=== PATIENT | male | born 1935 | race Caucasian/White ===

== ENCOUNTER 2018-05-17 18:59 | Outpatient (REF) | payer MEDICARE, MEDICAID, SELFPAY | END 2018-05-17 19:19 | LOC: LBN 18:59 | PROVIDERS: PCP Family Medicine; Visit Provider Family Medicine | DX: J11.1 Influenza due to unidentified influenza virus with other respiratory manifestations (principal) | CPT/HCPCS: 87449 ==

== ENCOUNTER 2018-07-24 17:46 | Outpatient (REF) | payer MEDICARE, MEDICAID, SELFPAY ==
--- NOTE | 2018-07-24 15:45 | SKI_PTH ---
PATIENT: Merary Ram LOC: [facility] U#:[id number] AGE/SX: 82/M ROOM: RE07/24/[address]: Edd Adrian MD : 1935 BED: DIS: 07/24/2018 SPEC #: [id number] RECD: 07/25/18 13:03 STATUS: NAIDA REStephen #: [id number] MALIK: 07/24/18 15:[address]: Edd Adrian DEPT: Surgical Specimen RECD BY: Sendy Brooks Tissues: 1 - SKIN BIOPSY(SHAVE/PUNCH) Procedures: SKIN LEVEL 4 Comments: [id number]
== END 2018-07-24 18:06 ==
LOC: LBN 17:46
PROVIDERS: PCP Family Medicine; Visit Provider Family Medicine
DX: D23.72 Other benign neoplasm of skin of left lower limb, including hip (principal)
CPT/HCPCS: 88305

== ENCOUNTER 2018-08-07 20:52 | Outpatient (REF) | payer MEDICARE, MEDICAID, SELFPAY ==
--- NOTE | 2018-08-07 15:45 | SKI_PTH ---
PATIENT: Merary Ram LOC: [facility] U#:[id number] AGE/SX: 82/M ROOM: RE08/07/[address]: Edd Adrian MD : 1935 BED: DIS: 08/07/2018 SPEC #: [id number] RECD: 08/08/18 12:22 STATUS: NAIDA REStephen #: [id number] MALIK: 08/07/18 15:[address]: Edd Adrian DEPT: Surgical Specimen RECD BY: Sendy Brooks Tissues: 1 - SKIN BIOPSY(SHAVE/PUNCH) Procedures: SKIN LEVEL 4 Comments: [id number]
== END 2018-08-07 21:12 ==
LOC: LBN 20:52
PROVIDERS: PCP Family Medicine; Visit Provider Family Medicine
DX: B07.9 Viral wart, unspecified (principal)
CPT/HCPCS: 88305

== ENCOUNTER → 2018-10-18 12:22 | Outpatient (BNVA) | payer MEDICARE, MEDICAID, SELFPAY | PROVIDERS: PCP Family Medicine; Visit Provider Urology | DX: N39.0 Urinary tract infection, site not specified (principal); R31.0 Gross hematuria; I10 Essential (primary) hypertension; Z79.01 Long term (current) use of anticoagulants | CPT/HCPCS: 81003; 99213 ==

== ENCOUNTER 2018-10-18 14:44 | Outpatient (REF) | payer MEDICARE, MEDICAID, SELFPAY | END 2018-10-18 15:04 | LOC: LBN 14:44 | PROVIDERS: PCP Family Medicine; Visit Provider Urology | DX: N39.0 Urinary tract infection, site not specified (principal) | CPT/HCPCS: 87086 ==

== ENCOUNTER 2018-10-28 01:34 | Outpatient (CLI) | payer MEDICARE, MEDICAID, SELFPAY ==
--- NOTE | 2018-10-28 08:27 | DI.CT_ITS ---
SYMPTOM/DIAGNOSIS: HX STONES (BLADDER), GROSS HEMATURIA R31.[address]: Routine examination was performed. Comparison 09/08/15 Lack of IV contrast does limit evaluation of the abdominal and pelvic organs. There is some patient motion artifact present. The visualized lung bases are clear. The unenhanced visualized portions of the liver, spleen, pancreas, gallbladder, bile ducts and adrenal glands are unremarkable. No nephrolithiasis or ureterolithiasis is present. No hydronephrosis is present. There is a solitary 1.5 cm stone in the urinary bladder. Note is made of a cyst on the superior pole of the left kidney. This was present on prior examinations and has been identified and can be seen on the ultrasound of the abdomen from 12/29/16. The prostate gland measures 5 x 4.0 x 4 cm. There is atherosclerosis of the abdominal aorta but no aneurysmal dilatation seen. No significant abdominal or pelvic adenopathy, ascites or pneumoperitoneum is present. The bowel shows no evidence of obstruction or inflammation. No findings to suggest an acute appendicitis are present. Degenerative changes are seen in the spine. IMPRESSION: 1. No evidence of nephrolithiasis or hydronephrosis. 2. 1.5 cm urinary bladder stone.
== END 2018-10-28 01:54 ==
PROVIDERS: PCP Family Medicine; Visit Provider Urology
DX: R31.0 Gross hematuria (principal); N21.0 Calculus in bladder; Z79.01 Long term (current) use of anticoagulants; I10 Essential (primary) hypertension
CPT/HCPCS: 99213; 74176

== ENCOUNTER 2018-11-11 11:10 | Inpatient (IN) | payer MEDICARE, MEDICAID, SELFPAY ==
[2018-11-11] VITALS (14 sets, daily range): BP systolic 119–178; BP diastolic 65–112; PULSE 56–80; RESP 10–19; TEMP 35.8–37.1; O2SAT 93–99
[2018-11-11] MEDS: Lactated Ringers 1,000 ML 80 ML IV ×3 (11:51→23:12)
--- NOTE | 2018-11-11 13:35 | W.PM.HP.N ---
Date of service: 11/11/18 Time of Service: 13:36 Assessment and Plan (1) Bladder stone: Current visit: No Status: Acute We will plan on cystoscopy with holmium laser of his bladder stone. We will then vaporized the prostate to relieve any bladder outlet obstruction and hopefully prevent future stones. He will be staying in the hospital overnight with bladder irrigation after this procedure. History of Present Illness Chief Complaint: Bladder stone Narrative: This is an 83-year-old gentleman who has a history of bladder stones. Recently, he has been having gross hematuria with interrupted urinary stream. We were concerned that he may have a recurrent bladder stone, so we arranged for a CT scan His CT confirms another large bladder stone. He presents for holmium laser lithotripsy of the stone. We will do vaporization of the prostate to relieve any bladder outlet obstruction and try to prevent future stones. He is on Eliquis for atrial fibrillation. The Eliquis has been stopped in the perioperative period. Review of Systems Review of Systems No fevers or chills No vision change or dysphasia No diabetes or thyroid dysfunction No shortness of breath, cough or hemoptysis No chest pain. Hx atrial fibrillation No nausea, vomiting, hepatitis, ulcers, jaundice, diarrhea or constipation No seizures, strokes or peripheral neuropathy No anemia No gout PFSH Medical History Atrial fibrillation (Chronic) BPH (benign prostatic hyperplasia) (Chronic) HTN (hypertension) (Chronic) Surgical History S/P excision of lipoma (Acute) Hx of appendectomy (Chronic) Hx of cystoscopy (Chronic) Social History Smoking/Tobacco Use Status: Former Tobacco Use Drug use: Never Do you feel safe in your relationship?: Yes Meds Home Medications Medication Instructions Recorded Confirmed Type cholecalciferol (vitamin D3) 1,000 unit PO DAILY 03/22/15 11/11/18 History [Vitamin D3] vitamin E (dl, acetate) 1 cap PO DAILY 09/08/15 11/11/18 History apixaban [Eliquis] 5 mg PO BID 90 Days #180 tab-cap 12/04/17 11/11/18 Rx atorvastatin 40 mg PO HS #90 tab-cap 12/04/17 11/11/18 Rx benazepril-hydrochlorothiazide 2 tab-cap PO DAILY #180 tab-cap 12/04/17 11/11/18 Rx gabapentin [Neurontin] 2 cap PO BID #360 t 12/04/17 11/11/18 Rx potassium chloride 20 meq PO BID #180 tab-cap 12/04/17 11/11/18 Rx tamsulosin 0.8 mg PO HS #180 tab-cap 12/04/17 11/11/18 Rx metoprolol tartrate 25 mg tablet 25 mg PO DAILY #90 tab 05/07/18 11/11/18 Rx triamcinolone acetonide 0.1 % 1 applic TP TID PRN #80 gm 07/08/18 11/07/18 Rx topical cream tramadol 50 mg tablet 50 mg PO Q6H PRN #20 tab MDD 4 11/01/18 11/07/18 Rx Allergies Allergy/AdvReac Type Severity Reaction Status Date / Time orange juice Allergy Intermediate RASH; Unverified 11/11/18 11:21 ITCHING ibuprofen Allergy Unknown ITCHING Unverified 11/11/18 11:21 Exam Narrative Exam Narrative: He is in no current distress. He is cooperative. He does not appear septic or toxic. His vital signs are documented elsewhere in the chart. His neck is supple with no masses His lungs are clear Cardiac exam shows an irregular rate and rhythm His abdomen is soft with no guarding or rebound tenderness. The kidneys liver and spleen are not enlarged He is awake, alert and oriented Results Last Vital Signs Temp 37.1 C 11/11/18 11:33 Pulse 56 L 11/11/18 11:33 Resp 16 11/11/18 11:33 BP 119/65 11/11/18 11:33 Pulse Ox 93 L 11/11/18 11:33
[2018-11-11] MEDS: ceFAZolin 2 GM/50 ML BAG IVPB (14:20)
[2018-11-11] MEDS: Lidocaine 2% Jelly 11 ML SYR (14:36)
[2018-11-11] MEDS: fentaNYL 100 MCG/2 ML VIAL IVP ×2 (16:05→16:20)
--- NOTE | 2018-11-11 16:24 | ROE_ITS ---
DATE OF PROCEDURE: November 11, 2018 PREOPERATIVE DIAGNOSIS: Bladder stone. POSTOPERATIVE DIAGNOSIS: Same. PROCEDURE: Cystoscopy; holmium laser of bladder stone with stone extraction. Transurethral resectio n and vaporization of prostate. SURGEON: Manish Houser M.D. ANESTHESIA: General. COMPLICATIONS: None. ESTIMATED BLOOD LOSS: 100 cc's SPECIMEN: Bladder stone. HISTORY: This is an 83-year-old gentleman who has a history of recurrent bladder stones. He has bee n having gross hematuria with some discomfort with voiding. His urine culture is negative. On CT ur ogram he was identified as having a large stone at the base of his bladder. It is felt the bladder o utlet obstruction is contributing to his recurrent stones. He presents now for a stone procedure, as well as a vaporization of the prostate. OPERATIVE REPORT: The patient was brought to the Operating Room on 11/11/18. After successful induct ion of general anesthesia, he was placed in the dorsal lithotomy position. His genitalia was prepped and draped sterilely. A 22 Polish rigid cystoscope was passed through the urethra into the bladder. The urethra was inspec gurjit with the 30-degree lens. The pendulous, bulbous and membranous urethras all appeared normal with no strictures. The prostatic urethra showed some lateral lobe enlargement and a very small median lobe. The bladder neck was ent ered and the bladder mucosa was inspected. A large bladder stone was seen at the base of the bladder . The stone was then treated with a 1000 micron holmium laser fiber. We used a power setting of 800 an d a rate of 8. The bladder stone fragmented quite nicely. We were then able to irrigate out multipl e stone fragments. Once the stone had been removed, its pieces were sent to Pathology for chemical analysis. We then re moved the cystoscope and passed a 24 Polish resectoscope sheath through the urethra into the bladder. We resected the prostate from the bladder neck out to the verumontanum. We then cauterized the res ection site for hemostasis, as the patient is on long-term Eliquis. At the completion of the procedure the prostatic fossa appeared open at rest. The bladder was then filled with irrigant. The resectoscope was removed. A 24 Polish hematuria cath eter was then passed through the urethra into the bladder. The catheter balloon was inflated with 10 cc's of sterile water. Continuous bladder irrigation with saline was then begun. The patient tolerated this procedure well with no complications. cc: Edd Adrian M.D.
[2018-11-11] MEDS: HYDROmorphone 2 MG/ML VIAL IVP (16:33)
[2018-11-11] MEDS: Oxybutynin 5 MG TAB PO (17:06)
[2018-11-11] MEDS: Ketorolac 15 MG/ML VIAL IVP (17:14)
[2018-11-11] MEDS: Labetalol 100 MG/20 ML VIAL 10 MG IVP ×3 (17:27→17:56)
[2018-11-11] MEDS: Phenazopyridine 100 MG TAB PO (19:09)
[2018-11-11] MEDS: Gabapentin 300 MG CAP 600 MG PO (19:09)
[2018-11-11] MEDS: Atorvastatin 40 MG TAB PO (19:09)
[2018-11-11] MEDS: Potassium Chloride 20 MEQ TABCR PO (19:10)
[2018-11-11] MEDS: Docusate Sodium 100 MG CAP PO (19:10)
[2018-11-11] MEDS: Normal Saline Flush 10 ML SYR IV (20:17)
[2018-11-11] MEDS: Tamsulosin 0.4 MG CAPCR 0.8 MG PO (21:35)
--- NOTE | 2018-11-11 22:37 | NUR.NOTE ---
Patient was admitted to the med-surg unit this evening from PACU after having Cystosopy, holiricum laser of bladder stone and stone extraction. He is conscious, alert, rational and oriented x 3 and denies any pain. He is on continuous bladder irrigation, with intermittently pinkish fluid secretions noted with episodes of reddish coloration. Head to toe assessment done and charted
[2018-11-12 00:02] VITALS: BP 179/96; PULSE 87; RESP 20; TEMP 36.1; O2SAT 96
[2018-11-12 05:32] LABS: HCT 35.5 % (40.0-50.0); HGB 12.1 g/dL (13.5-17.5); Mean Corp. HGB Concentration 34.1 g/dL (32.0-36.0); Mean Corpuscular Hemoglobin 29.6 pg (27.0-33.0); Mean Corpuscular Volume 86.8 fL (80-95); Mean Platelet Volume 9.4 fL (8.0-11.0); Platelet Count 168 x1000/uL (130-400); RBC 4.09 m/cumm (4.50-6.00); White Blood Cell Count 7.04 k/cumm (4.4-10.8)
[2018-11-12 05:47] LABS: Anion Gap 9.3 mmol/L (3-11); BUN 19 mg/dL (7-18); CO2 25.7 mmol/L (21.0-32.0); CREATININE 0.85 mg/dL (0.70-1.30); Chloride 104 mmol/L (98-107); Glucose 134 mg/dL (70-100); Potassium 3.8 mmol/L (3.5-5.1); Sodium 139 mmol/L (136-145)
--- NOTE | 2018-11-12 07:02 | W.PM.PROGNOT ---
Date of Service Date of service: 11/12/18 Time of Service: 07:02 Assessment and Plan (1) Bladder stone: Current visit: No Status: Acute I will stop his CBI this AM. As long as his urine remains clear, we should be able to discharge him later today. We will decide if we will send him home with or without his catheter later this morning. Subjective Interval history since last seen: He is more comfortable than when I saw him in the recovery room, but he still has some catheter discomfort. He has no clot retention. He is tolerating PO fluids. Exam Narrative Exam Narrative: He is resting comfortably this morning (I woke him up) His vital signs are documented elsewhere. His urine is clear His labs are reviewed (renal function and Hgb stable) Objective Objective Clinical Data: Abnormal lab results 11/12/18 11/12/18 Range/Units 05:25 05:25 RBC 4.09 L (4.50-6.00) m/cumm Hgb 12.1 L (13.5-17.5) g/dL Hct 35.5 L (40.0-50.0) % BUN 19 H (7-18) mg/dL Glucose 134 H (70-100) mg/dL Vital Signs Temperature 36.1 C L 11/12/18 00:02 Temperature Source Tympanic 11/12/18 00:02 Pulse 87 11/12/18 00:02 Pulse Rhythm Irregular 11/12/18 00:02 Respiratory Rate 20 11/12/18 00:02 Respiratory Effort 11/12/18 00:02 Respiratory Depth Normal 11/12/18 00:02 Respiratory Pattern Normal 11/12/18 00:02 Blood Pressure 179/96 H 11/12/18 00:02 Pulse Oximetry 96 11/12/18 00:02 Respiratory End-tidal CO2 28 11/11/18 16:45 Oxygen Delivery Method Room Air 11/12/18 00:02 Oxygen Flow Rate 0 11/12/18 00:02 Pain Level 0 11/12/18 00:02 Intake & Output 11/11/18 11/11/18 11/12/18 11:59 23:59 11:59 Intake Total 1839.333 / 1839.333 100 / 100 Balance 1839.333 / 1839.333 100 / 100 Weight 82.3 kg Intake: IV 1839.333 / 1839.333 Oral 100 / 100 Other: Urine Color [place] Urine Appearance Hematuria Hematuria Comment [address] CBI WORKING. Emesis Description None Laboratory Results WBC 7.04 k/cumm (4.4-10.8) 11/12/18 05:25 RBC 4.09 m/cumm (4.50-6.00) L 11/12/18 05:25 Hgb 12.1 g/dL (13.5-17.5) L 11/12/18 05:25 Hct 35.5 % (40.0-50.0) L 11/12/18 05:25 MCV 86.8 fL (80-95) 11/12/18 05:25 MCH 29.6 pg (27.0-33.0) 11/12/18 05:25 MCHC 34.1 g/dL (32.0-36.0) 11/12/18 05:25 RDW 13.0 % (11.8-14.1) 11/12/18 05:25 Plt Count 168 x1000/uL (130-400) 11/12/18 05:25 MPV 9.4 fL (8.0-11.0) 11/12/18 05:25 Sodium 139 mmol/L (136-145) 11/12/18 05:25 Potassium 3.8 mmol/L (3.5-5.1) 11/12/18 05:25 Chloride 104 mmol/L (98-107) 11/12/18 05:25 Carbon Dioxide 25.7 mmol/L (21.0-32.0) 11/12/18 05:25 Anion Gap 9.3 mmol/L (3-11) 11/12/18 05:25 BUN 19 mg/dL (7-18) H 11/12/18 05:25 Creatinine 0.85 mg/dL (0.70-1.30) 11/12/18 05:25 Estimated GFR/1.73 m2 >= 60.00 (mL/min/1.73m2) 11/12/18 05:25 Glucose 134 mg/dL (70-100) H 11/12/18 05:25 Calcium 9.0 mg/dL (8.5-10.1) 11/12/18 05:25
[2018-11-12 07:10] VITALS: BP 118/66; PULSE 63; RESP 16; TEMP 36.8; O2SAT 97
--- NOTE | 2018-11-12 08:08 | PDOC.CMIN ---
- If Service Date Differs Date of service: 11/12/18 Time of Service: 08:08 Care Management Initial Assess REASON FOR HOSPITALIZATION:: Bladder stone PAST MEDICAL HISTORY/PAST SURGICAL HISTORY:: Medical History. Atrial fibrillation (Chronic). BPH (benign prostatic hyperplasia) (Chronic). HTN (hypertension) (Chronic). Surgical History. S/P excision of lipoma (Acute). Hx of appendectomy (Chronic). Hx of cystoscopy (Chronic) ADVANCE DIRECTIVES:: None on file at [facility] CODE STATUS:: Full Code INSURANCE COVERAGE / FINANCIAL ISSUES:: Medicare. Medicaid [place] [facility] PRIMARY CARE PHYSICIAN:: Edd Adrian MD POTENTIAL DISCHARGE NEEDS:: follow up with PCP, urologist and discharge plan of care PATIENT/FAMILY EDUCATION NEEDS:: Discharge plan, limitations, follow up plan, Ask Me Three. ANTICIPATED BARRIERS TO DISCHARGE:: none identified
--- NOTE | 2018-11-12 08:25 | DSE_ITS ---
Date of service: 11/12/18 Time of Service: 08:25 DS: Diagnosis Discharge Diagnosis (1) Bladder stone: Status: Acute Discharge Plan Disposition Patient Disposition: HOME Condition: Stable Discharge Details Reason For Visit: BLADDER STONE Admit Date/Time: 11/11/18 11:10 Admit Provider: Manish Houser Attending Provider: Manish Houser Primary Care Provider: Edd Adrian [facility] Course Hospital Course: The patient was taken to the operating room on 11/11/2018. He underwent a cystoscopy which demonstrated a large bladder stone. We treated the stone with a holmium laser and evacuated many stone fragments. The stone fragments were sent to the lab for chemical analysis. These results are not yet available. Because we felt the bladder outlet obstruction was a component to his stone formation, we also vaporized his prostate using the bipolar cautery. We then placed an irrigating catheter and hospitalized him overnight with bladder irrigation. By postoperative day #1, his bladder irrigation remained clear. We discontinued the irrigation. His hemoglobin and creatinine both remained stable. He will be discharged to home on postoperative day #1. Home Meds and New Rx's Prescriptions: New ciprofloxacin HCl 250 mg tablet 250 mg PO BID Qty: 6 RF: 0 No Action triamcinolone acetonide 0.1 % cream 1 applic TP TID PRN Qty: 80 RF: 2 cholecalciferol (vitamin D3) [Vitamin D3] 1,000 UNIT capsule 1,000 unit PO DAILY RF: 0 atorvastatin 40 MG tablet 40 mg PO HS Qty: 90 RF: 4 potassium chloride 20 MEQ tablet,ER particles/crystals 20 meq PO BID Qty: 180 RF: 3 tamsulosin 0.4 MG capsule 0.8 mg PO HS Qty: 180 RF: 4 gabapentin [Neurontin] 300 MG capsule 2 cap PO BID Qty: 360 RF: 4 benazepril-hydrochlorothiazide 1 EACH tablet 2 tab-cap PO DAILY Qty: 180 RF: 3 Eliquis 5 MG tablet 5 mg PO BID 90 Days Qty: 180 RF: 3 metoprolol tartrate 25 mg tablet 25 mg PO DAILY Qty: 90 RF: 3 tramadol 50 mg tablet 50 mg PO Q6H MDD 4 PRN (Reason: pain) Qty: 20 RF: 0 vitamin E (dl, acetate) 400 UNIT capsule 1 cap PO DAILY RF: 0 Discharge Instructions Additional Instructions: Okay to shower Follow-up with my office or Sunday for voiding trial Catheter to leg bag Hold Eliquis until followup visit Pt already has Ultram at home to use for pain control - only script needed is for antibiotic (sent electronically) Activity:: Activity as Tolerated Equipment/Supplies:: g[place]ord to legbag Diet:: As Tolerated Discharge Orders Discharge Orders: Discharge Order (Routine); Ordered 11/12/18 Ordered By: Manish Houser Exam Narrative Exam Narrative: At discharge, he looks well His vital signs are documented elsewhere His abdomen is soft with no mass His urine is clear with no clots He is awake and alert DS: Data Vitals/I&O Vitals and I&O: Vital Signs Temperature 36.8 C 11/12/18 07:10 Temperature Source Tympanic 11/12/18 07:10 Pulse 63 11/12/18 07:10 Pulse Rhythm Irregular 11/12/18 00:02 Respiratory Rate 16 11/12/18 07:10 Respiratory Effort 11/12/18 00:02 Respiratory Depth Normal 11/12/18 00:02 Respiratory Pattern Normal 11/12/18 00:02 Blood Pressure 118/66 11/12/18 07:10 Pulse Oximetry 97 11/12/18 07:10 Respiratory End-tidal CO2 28 11/11/18 16:45 Oxygen Delivery Method Room Air 11/12/18 07:10 Oxygen Flow Rate 0 11/12/18 07:10 Pain Level 0 11/12/18 07:10 Intake & Output 11/11/18 11/11/18 11/12/18 11:59 23:59 11:59 Intake Total 1839.333 / 1839.333 100 / 100 Balance 1839.333 / 1839.333 100 / 100 Weight 82.3 kg Intake: IV 183.333 / 183.333 Oral 100 / 100 Other: Urine Color [place] Urine Appearance Hematuria Hematuria Comment CBI, TRUE U/O NOT CALCULATED. NUMEROUS BAGS FLUID RUN THRU. IN AM URINE WAS CLEAR YELLOW WITH ONE TEENY CLOT. Emesis Description None Voiding Methods Indwelling Catheter Labs on day of discharge: Labs from last 24 hours 11/12/18 11/12/18 11/11/18 05:25 05:25 14:53 WBC 7.04 RBC 4.09 L Hgb 12.1 L Hct 35.5 L MCV 86.8 MCH 29.6 MCHC 34.1 RDW 13.0 Plt Count 168 MPV 9.4 Sodium 139 Potassium 3.8 Chloride 104 Carbon Dioxide 25.7 Anion Gap 9.3 BUN 19 H Creatinine 0.85 Estimated GFR/1.73 m2 >= 60.00 Glucose 134 H Calcium 9.0 Stone Analysis Pending Stone Source Pending Stone Constituent 1 Pending Stone Constituent 2 Pending Stone Constituent 3 Pending Major Stone Nidus Pending Minor Stone Nidus Pending Major Stone Shell Pending Minor Stone Shell Pending Stone Comment Pending PFSH Medical History Atrial fibrillation (Chronic) BPH (benign prostatic hyperplasia) (Chronic) HTN (hypertension) (Chronic) Surgical History S/P excision of lipoma (Acute) Hx of appendectomy (Chronic) Hx of cystoscopy (Chronic) Social History Smoking/Tobacco Use Status: Former Tobacco Use Drug use: Never Do you feel safe in your relationship?: Yes
[2018-11-12] MEDS: Gabapentin 300 MG CAP 600 MG PO (08:46)
[2018-11-12] MEDS: Cholecalciferol (Vitamin D3) 1,000 UNIT TAB 1000 UNITS PO (08:47)
[2018-11-12] MEDS: hydroCHLOROthiazide 25 MG TAB PO (08:47)
[2018-11-12] MEDS: Benazepril 10 MG TAB 20 MG PO (08:47)
[2018-11-12] MEDS: Vitamin E 400 UNITS CAP PO (08:47)
[2018-11-12] MEDS: Docusate Sodium 100 MG CAP PO (08:47)
[2018-11-12] MEDS: Potassium Chloride 20 MEQ TABCR PO (08:48)
== END 2018-11-12 10:18 | disposition home or self-care (01) | DRG 666 ==
LOC: PDS 11:17 → MS 15:50
PROVIDERS: Admitting Provider Urology; PCP Family Medicine; Visit Provider Urology
PROC: 0TCB8ZZ Extirpation of Matter from Bladder, Via Natural or Artificial Opening Endoscopic (ICD-10-PCS; CPT 52318; principal; 2018-11-11 12:30)
PROC: 0VT08ZZ Resection of Prostate, Via Natural or Artificial Opening Endoscopic (ICD-10-PCS; CPT 52601; 2018-11-11 12:30)
DX: N21.0 Calculus in bladder (principal); N13.8 Other obstructive and reflux uropathy; N40.1 Benign prostatic hyperplasia with lower urinary tract symptoms; I48.91 Unspecified atrial fibrillation; Z79.01 Long term (current) use of anticoagulants; I10 Essential (primary) hypertension
CPT/HCPCS: 52318; 52601; 36415; 80048; 85027; NC; 82365; J0690; J1100; J1885; J2405; J3010

== ENCOUNTER → 2018-11-15 08:30 | Outpatient (BNVA) | payer MEDICARE, MEDICAID, SELFPAY | PROVIDERS: PCP Family Medicine; Visit Provider Urology | DX: Z48.816 Encounter for surgical aftercare following surgery on the genitourinary system (principal); R30.9 Painful micturition, unspecified; N21.0 Calculus in bladder; Z46.6 Encounter for fitting and adjustment of urinary device; I10 Essential (primary) hypertension | CPT/HCPCS: 51798; 96372; J1885 ==

== ENCOUNTER → 2018-11-19 10:03 | Outpatient (BNVA) | payer MEDICARE, MEDICAID, SELFPAY | PROVIDERS: PCP Family Medicine; Visit Provider Urology | DX: Z48.816 Encounter for surgical aftercare following surgery on the genitourinary system (principal); Z87.442 Personal history of urinary calculi; I10 Essential (primary) hypertension ==

== ENCOUNTER 2018-12-19 11:00 | Outpatient (CLI) | payer MEDICARE, MEDICAID, SELFPAY | END 2018-12-19 11:20 | PROVIDERS: PCP Family Medicine; Visit Provider Urology | DX: N21.0 Calculus in bladder (principal); N39.0 Urinary tract infection, site not specified | CPT/HCPCS: 87086 ==

== ENCOUNTER → 2018-12-31 09:52 | Outpatient (BNVA) | payer MEDICARE, MEDICAID, SELFPAY | PROVIDERS: PCP Family Medicine; Visit Provider Urology | DX: R30.0 Dysuria (principal); R31.29 Other microscopic hematuria; R10.2 Pelvic and perineal pain; I10 Essential (primary) hypertension; Z87.442 Personal history of urinary calculi | CPT/HCPCS: 51798; 81003; 99212; 99213 ==

== ENCOUNTER → 2019-01-07 11:57 | Outpatient (BNVA) | payer MEDICARE, MEDICAID, SELFPAY | PROVIDERS: PCP Family Medicine; Visit Provider Urology | DX: R30.0 Dysuria (principal); Z87.442 Personal history of urinary calculi; Z48.816 Encounter for surgical aftercare following surgery on the genitourinary system | CPT/HCPCS: 51798; 99213 ==

== ENCOUNTER → 2019-01-21 10:51 | Outpatient (BNVA) | payer MEDICARE, MEDICAID, SELFPAY | PROVIDERS: PCP Family Medicine; Visit Provider Urology | DX: N21.0 Calculus in bladder (principal); R30.0 Dysuria; Z48.816 Encounter for surgical aftercare following surgery on the genitourinary system; I10 Essential (primary) hypertension | CPT/HCPCS: 99213 ==

== ENCOUNTER 2019-01-24 02:47 | Outpatient (CLI) | payer MEDICARE, MEDICAID, SELFPAY ==
--- NOTE | 2019-01-24 08:18 | DI.CT_ITS ---
SYMPTOM/DIAGNOSIS: R/O RECURRENT STONE, BLADDER STONE N21.[address]: 01/24 CT examination of the abdomen and pelvis was performed without contrast administration. Images obtained through the lung bases were unremarkable. Visualized portions of liver, spleen and pancreas appear normal. Gallbladder and bile ducts are CT normal. Abdominal aorta is of normal diameter. Small bilateral fat containing inguinal hernias and small fat containing umbilical hernia noted. No significant abdominal or pelvic adenopathy. Appendix not specifically visualized but there is no evidence of appendicitis or diverticulitis. Adrenals appear normal bilaterally. There is a 42 mm in diameter low attenuation upper pole left renal mass consistent with cyst. There is a small calcification of the right kidney probably vascular, otherwise the kidneys are unremarkable in appearance. No ureteral calcification seen. There is question of a TURP defect of the urinary bladder, this is hard to visualize on this noncontrast study. A previously noted bladder calculus seen on CT of 10/28/18 is no longer visible. There is question of a very tiny calcification which may lie either in the TURP defect or in the prostate. No evidence of obstruction. Additional prostate calcifications are noted inferiorly. CONCLUSION: 1. Previously noted large bladder calculus no longer visible. 2. Tiny 1-2 mm calculus which may lie in TURP defect of the urinary bladder vs intraprostatic. No evidence of obstruction. 3. No additional urinary tract calcifications.
== END 2019-01-24 03:07 ==
PROVIDERS: PCP Family Medicine; Visit Provider Urology
DX: N21.0 Calculus in bladder (principal); R39.9 Unspecified symptoms and signs involving the genitourinary system; N42.89 Other specified disorders of prostate; I10 Essential (primary) hypertension; R30.0 Dysuria
CPT/HCPCS: 99213; 74176; 87086

== ENCOUNTER 2019-02-24 08:11 | Outpatient (CLI) | payer MEDICARE, MEDICAID, SELFPAY ==
[2019-02-24 13:33] LABS: Anion Gap 7.2 mmol/L (3-11); BUN 9 mg/dL (7-18); CO2 30.8 mmol/L (21.0-32.0); CREATININE 0.76 mg/dL (0.70-1.30); Calcium 8.6 mg/dL (8.5-10.1); Chloride 102 mmol/L (98-107); Glucose 94 mg/dL (70-100); Potassium 3.4 mmol/L (3.5-5.1); Sodium 140 mmol/L (136-145)
== END 2019-02-24 08:31 ==
PROVIDERS: PCP Family Medicine; Visit Provider Family Medicine
DX: I10 Essential (primary) hypertension (principal)
CPT/HCPCS: 36415; 80048

== ENCOUNTER 2020-01-06 03:48 | Outpatient (CLI) | payer MEDICARE, MEDICAID, SELFPAY ==
[2020-01-06 12:29] LABS: Abs Immature Grans 0.02 10^3/uL (0.0-0.06); Absolute Basophil Count 0.02 10^3/uL (0.0-0.2); Absolute Eosinophil Count 0.27 10^3/uL (0.0-0.7); Absolute Lymphocyte Count 1.48 10^3/uL (1.2-3.4); Absolute Monocyte Count 0.63 10^3/uL (0.1-0.8); Basophils % 0.3; Eosinophils % 4.3; HGB 13.2 g/dL (13.5-17.5); Immature Grans % 0.3; Lymphocytes % 23.4; MCH 28.9 pg (27.0-33.0); MCHC 32.2 % (32.0-36.0); MCV 89.9 fL (80-95); MPV 11.4 fL (8.0-11.0); Neutrophils % 61.7; Nucleated RBC 0 %; Platelet Count 188 10^3/uL (130-400); RBC 4.56 10^6/uL (4.36-5.78); RDW 13.4 % (11.8-14.1); RDW-SD 44.4 fL; WBC 6.32 10^3/uL (4.4-10.8)
[2020-01-06 12:38] LABS: Bilirubin Negative (Negative); Blood Trace-intact (Negative); Clarity Clear (Clear); Glucose Negative (Negative); Ketones Negative (Negative); Leukocyte Esterase Negative (Negative); Nitrite Negative (Negative); Specific Gravity 1.025 (1.005-1.025); Urobilinogen 0.2 EU/dL (Up TO 0.2); pH 7.5 (5-8)
[2020-01-06 12:50] LABS: ALT 43 U/L (16-63); AST 20 U/L (15-37); Albumin 3.8 g/dL (3.4-5.0); Alkaline Phosphatase 74 U/L (46-116); Anion Gap 8.1 mmol/L (3-11); BUN 15 mg/dL (7-18); Bilirubin, Total 0.6 mg/dL (0.2-1.0); CO2 28.9 mmol/L (21.0-32.0); CREATININE 0.84 mg/dL (0.70-1.30); Calcium 8.7 mg/dL (8.5-10.1); Chloride 106 mmol/L (98-107); Glucose 111 mg/dL (74-106); Sodium 143 mmol/L (136-145); Total Protein 6.3 g/dL (6.4-8.2)
[2020-01-06 12:54] LABS: Bacteria Rare HPF (Negative); C & S Indicated? No; Casts Negative LPF (Negative); Crystals Negative HPF (Negative); Epithelial Cells Rare HPF (Negative); Mucus Trace (Negative); RBC 0-2 HPF (0-2); WBC 0-2 HPF (0-5)
== END 2020-01-06 04:08 ==
PROVIDERS: PCP Family Medicine; Visit Provider Family Medicine
DX: I10 Essential (primary) hypertension (principal); I48.20 Chronic atrial fibrillation, unspecified; R82.998 Other abnormal findings in urine
CPT/HCPCS: 36415; 80053; 81003; 81015; 84443; 85025

== ENCOUNTER 2020-02-19 18:06 | Outpatient (CLI) | payer MEDICARE, MEDICAID, SELFPAY ==
--- NOTE | 2020-02-19 13:45 | DI.RAD_ITS ---
EXAM: XR RIBS LT W PA LAT CHEST CLINICAL HISTORY: RIB INJURY, S29.9XXA. COMPARISON: CR CHEST 2 VIEWS PA,LAT from 11/03/2015 FINDINGS: LUNGS: Clear. No pneumothorax is seen. No infiltrate or effusion. HEART: Mildly enlarged. Mildly tortuous aorta. BONES: No displaced rib fracture is seen. No bony destructive lesion is seen. The spine is grossly i ntact and shows degenerative disc changes and mild scoliosis.. IMPRESSION: Unremarkable chest and left ribs.
== END 2020-02-19 18:26 ==
PROVIDERS: PCP Family Medicine; Visit Provider Family Medicine
DX: S29.8XXA Other specified injuries of thorax, initial encounter (principal); M47.819 Spondylosis without myelopathy or radiculopathy, site unspecified; M41.9 Scoliosis, unspecified
CPT/HCPCS: 71046; 71100

== ENCOUNTER 2020-02-24 21:33 | Outpatient (REF) | payer MEDICARE, MEDICAID, SELFPAY ==
[2020-02-24 22:01] LABS: Bilirubin Negative (Negative); Blood Negative (Negative); Clarity Clear (Clear); Glucose Negative (Negative); Ketones Negative (Negative); Leukocyte Esterase Negative (Negative); Nitrite Negative (Negative); Specific Gravity 1.025 (1.005-1.025); Urobilinogen 0.2 EU/dL (Up TO 0.2)
== END 2020-02-24 21:53 ==
LOC: LBN 21:33
PROVIDERS: PCP Family Medicine; Visit Provider Family Medicine
DX: R39.11 Hesitancy of micturition (principal)
CPT/HCPCS: 81003; 87086

== ENCOUNTER 2020-03-15 14:35 | Outpatient (CLI) | payer MEDICARE, MEDICAID, SELFPAY ==
[2020-03-17 19:51] LABS: Patient Race White; SARS-CoV-2 RNA Undetected (Undetected); SARS-CoV-2 Specimen Source Nasal
== END 2020-03-15 14:55 ==
PROVIDERS: PCP Family Medicine; Visit Provider Family Medicine
DX: Z20.828 Contact with and (suspected) exposure to other viral communicable diseases (principal)
CPT/HCPCS: U0003

== ENCOUNTER 2020-10-05 15:44 | Outpatient (CLI) | payer MEDICARE, MEDICAID, SELFPAY ==
--- NOTE | 2020-10-05 14:45 | DI.RAD_ITS ---
Exam(s) XR SHOULDER LT COMPLETE 2+V EXAM: XR SHOULDER LT COMPLETE 2+V CLINICAL HISTORY: L shoulder pain. TECHNIQUE: 2D digital imaging was performed. COMPARISON: No exams were available for comparison FINDINGS: BONES: No acute fracture is present. No bony destructive lesion is seen. JOINTS: No dislocation present. Mild spurring at the AC joint and glenoid. SOFT TISSUE: Normal. No tendon or joint space calcifications are visible. IMPRESSION: Mild degenerative changes. DATA REPOSITORY: RADIATION DOSE DELIVERED:
== END 2020-10-05 15:45 | disposition home or self-care (01) ==
LOC: DIORS 15:44
PROVIDERS: PCP Family Medicine; Referring Provider Physical Therapist; Visit Provider Student in an Organized Health Care Education/Training Program
DX: M12.812 Other specific arthropathies, not elsewhere classified, left shoulder (principal); M24.512 Contracture, left shoulder; M25.512 Pain in left shoulder
CPT/HCPCS: 20610; 99204; 99213; 73030; J1040

== ENCOUNTER 2021-02-08 07:25 | Outpatient (CLI) | payer MEDICARE, MEDICAID, SELFPAY ==
[2021-02-08 12:26] LABS: HCT 42.3 % (40.0-50.0); HGB 13.6 g/dL (13.5-17.5); MCH 29.8 pg (27.0-33.0); MCHC 32.2 % (32.0-36.0); MCV 92.6 fL (80-95); MPV 10.6 fL (8.0-11.0); Platelet Count 197 10^3/uL (130-400); RBC 4.57 10^6/uL (4.36-5.78); RDW 13.2 % (11.8-14.1); RDW-SD 44.8 fL; WBC 5.84 10^3/uL (4.4-10.8)
[2021-02-08 12:46] LABS: Iron 87 ug/dL (65-175); Total Iron Binding Capacity 270 ug/dL (250-450); Transferrin Sat 32 % (20-55)
[2021-02-08 13:32] LABS: Ferritin 99 ng/mL (26-388)
[2021-02-08 14:00] LABS: Hemoglobin A1C 6.1 % (<5.7)
== END 2021-02-08 07:26 | disposition home or self-care (01) ==
LOC: LOS 07:25
PROVIDERS: PCP Nurse Practitioner Family; Visit Provider Nurse Practitioner Family
DX: M25.512 Pain in left shoulder; R53.83 Other fatigue; I10 Essential (primary) hypertension; R31.9 Hematuria, unspecified
CPT/HCPCS: 36415; 85027; 82728; 83036; 83540; 83550

== ENCOUNTER 2021-10-05 03:30 | Outpatient (CLI) | payer MEDICARE, MEDICAID, SELFPAY ==
[2021-10-05 18:14] LABS: ALT 37 U/L (16-63); AST 25 U/L (15-37); Albumin 3.6 g/dL (3.4-5.0); Alkaline Phosphatase 77 U/L (46-116); BUN 15 mg/dL (7-18); Bilirubin, Total 0.7 mg/dL (0.2-1.0); CREATININE 0.8 mg/dL (0.70-1.30); Calcium 8.9 mg/dL (8.5-10.1); Chloride 101 mmol/L (98-107); Glucose 95 mg/dL (74-106); Potassium 3.3 mmol/L (3.5-5.1); Sodium 138 mmol/L (136-145); Total Protein 6.6 g/dL (6.4-8.2)
== END 2021-10-05 03:31 | disposition home or self-care (01) ==
LOC: LBO 03:30
PROVIDERS: PCP Nurse Practitioner Family; Visit Provider Nurse Practitioner Family
DX: I10 Essential (primary) hypertension (principal)
CPT/HCPCS: 36415; 80053

== ENCOUNTER 2021-11-14 03:55 | Outpatient (CLI) | payer MEDICARE, MEDICAID, SELFPAY ==
[2021-11-14] MEDS: Inhaler, Assist Device 1 EACH MC (16:11)
[2021-11-14] MEDS: Albuterol HFA 18 GM 200 PUFF INH IH (16:12)
--- NOTE | 2021-11-15 09:55 | W.PFT ---
Date of service: 11/14/21 Time of Service: 15:00 Pulmonary Function Test Result Requesting Provider Juwan Mark Indications: BARKLEY Interpretation Spirometry: There is no airflow limitation. There is no significant bronchodilator response. There is inspiratory loop blunting. Lung Volumes: Lung volumes are normal. Diffusion Capacity: Normal diffusion. Airway Pressure: Normal airways resistance. Impression Normal pulmonary function testing but with inspiratory loop blunting, which in the correct clinical context could represent vocal cord dysfunction. Clinical Correlation therefore is recommended.
== END 2021-11-14 03:56 | disposition home or self-care (01) ==
LOC: RT 03:55
PROVIDERS: PCP Nurse Practitioner Family; Visit Provider Nurse Practitioner Family
DX: R06.02 Shortness of breath (principal); R06.09 Other forms of dyspnea; R06.2 Wheezing; Z87.891 Personal history of nicotine dependence
CPT/HCPCS: 94060; 94726; 94729

== ENCOUNTER 2022-09-18 08:34 | Day surgery (SDC) | payer MEDICARE, MEDICAID, SELFPAY ==
[2022-09-18 09:12] VITALS: BP 162/102; PULSE 63; RESP 18; TEMP 37; O2SAT 94
[2022-09-18] MEDS: Tropicam./Phenyleph. (1/2.5%) 5 ML BTL OD ×3 (09:40→09:51)
--- NOTE | 2022-09-18 09:42 | ANES.PREOP_ITS ---
General Info Date of Service Date Performed: 09/18/22 Height: 5 ft 3 in Weight: 82.6 kg Body Mass Index (BMI): 32.2 Surgical Procedure: Operation Date: 09/18/22 10:40 Proposed Procedure Side Surgeon p Cataract Extraction with IOL Implant Right Alejandro Ferguson MD Meds Allergies and Home Medications Allergies Allergy/AdvReac Type Severity Reaction Status Date / Time ibuprofen Allergy Unknown ITCHING Verified 09/18/22 09:04 acetaminophen [From Tylenol] Allergy Verified 09/18/22 09:04 Home Medication Medication Instructions Recorded vitamin E (dl, acetate) 180 mg 1 cap PO DAILY 09/08/15 (400 unit) capsule cholecalciferol (vitamin D3) 25 2,000 unit PO DAILY 01/21/20 mcg (1,000 unit) capsule (Vitamin D3) gabapentin 300 mg capsule 300 mg PO BID #180 caps 01/21/20 (Neurontin) triamcinolone acetonide 0.1 % 1 applic topical TID PRN #80 grams 06/14/20 topical cream benazepril 20 1 tab PO DAILY #90 tabs 12/22/21 mg-hydrochlorothiazide 25 mg tablet apixaban 5 mg tablet (Eliquis) 5 mg PO BID 90 days #180 tab-caps 01/23/22 atorvastatin 40 mg tablet 40 mg PO HS #90 tab-caps 01/28/22 potassium chloride 20 mEq 20 meq PO DAILY #90 tab-caps 06/19/22 tablet,extended release(part/cryst) albuterol sulfate 90 mcg/actuation 2 puff inhalation Q6H PRN 08/24/22 aerosol inhaler shortness of breath or wheezing #8.5 grams Current Visit Medications: Current Medications Generic Name Dose Route Start Last Admin Trade Name Freq PRN Reason Stop Dose Admin Acetaminophen 1,000 mg 09/18/22 06:00 Acetaminophen 500 Mg Tab PO Q4H PRN PRN Miscellaneous Medication 0 ml 09/18/22 06:00 09/18/22 09:40 Tropicam./Phenyleph. (1/2.5%) 5 Ml Btl OD 1 drp DIRECTED [facility] Administration Miscellaneous Medication 0 ml 09/18/22 06:00 Prednisolone 1%, Moxifloxacin 0.5%, Nepafenac 0.1% 5ml Btl OD DIRECTED [facility] Tetracaine HCl 0 ml 09/18/22 06:00 Tetracaine 0.5% 4 Ml Btl OD DIRECTED [facility] Active Problems Active Problems: Problem Status Onset Code Arthritis M19.90 Bladder stone 01/27/16 N21.0 Central retinal vein occlusion 03/05/17 H34.8192 Chronic atrial fibrillation 10/04/15 I48.2 Hyperplasia of prostate 10/03/12 N40.0 Language difficulty F80.9 Memory impairment 05/08/13 R41.3 Peripheral neuralgia 10/03/12 M79.2 Eczema L30.9 HTN (hypertension) I10 Dysuria R30.0 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 Gross hematuria 01/27/16 R31.0 Depression F32.9 Fatigue R53.83 Slow heart rate R00.1 Nuclear age-related cataract, right eye H25.11 Medical History Medical History Atrial fibrillation BPH (benign prostatic hyperplasia) Contracture, left shoulder Left rotator cuff tear arthropathy Nasal polyp surgically removed Surgical History Surgical History Hx of appendectomy Hx of cystoscopy daughter reports prostate was cleared out S/P excision of lipoma left thigh Tobacco Smoking/Tobacco Use Status: Former Tobacco Use Passive smoking exposure: Yes Second hand exposure: Yes Alcohol Alcohol Intake: current Alcohol intake frequency: holidays/special occasions only Alcohol type: beer, wine and hard liquor Substance Use Substance use: Never Substance use type: does not use Details: alcohol: t-7 Vital Signs and Lab Results Vital Signs Most Recent Vital Signs in EMR: Most Recent Vital Signs Temp Pulse Resp BP Pulse Ox 37.0 C 63 18 162/102 H 94 09/18/22 09:12 09/18/22 09:12 09/18/22 09:12 09/18/22 09:12 09/18/22 09:12 Lab Results Blood Type / Crossmatch: No Data to Display Complete Blood Count: No Data to Display Complete Metabolic Panel: No Data to Display Liver Function Panel: No Data to Display Coagulation Panel: No Data to Display Cardiac Panel: No Data to Display Arterial Blood Gas: No Data to Display Venous Blood Gas: 2 No Data to Display Pancreas Panel: No Data to Display Thyroid Panel: No Data to Display Infectious Disease: No Data to Display Blood Cultures: No Data to Display Toxicology Panel: No Data to Display Imaging and Studies Imaging and Studies Study information below may be from another EMR and interpreted by another provider. Please see original notes in EMR for more complete details. EKG Summary: 01/2020 Conclusion Atrial fibrillation...V-rate 44- 48, irreg A-activity Stress Test Summary: 12/29/15 Impressions: Negative stress test after pharmacologic stress. Summary: 1. Myocardial perfusion imaging: No myocardial perfusion defects noted. 2. The calculated left ventricular ejection fraction after stress: 56%. LV global systolic function is normal. No left ventricular regional motion abnormality. 3. Baseline ECG: Atrial fibrillation. Echocardiogram Summary: 10/03 Summary: 1. Left ventricle: The cavity size was normal. Wall thickness was normal. Systolic function was normal. The estimated ejection fraction was 60-65%. Wall motion was normal; there were no regional wall motion abnormalities. 2. Mitral valve: Mild regurgitation. 3. Left atrium: The atrium was severely dilated. 4. Right ventricle: The cavity size was normal. Wall thickness was normal. Systolic function was normal. 5. Tricuspid valve: Mild-moderate regurgitation. 6. Pulmonary arteries: Pulmonary systolic pressure was in the range of 25mm Hg to 35mm Hg. 7. Inferior vena cava: The vessel was normal in size; the respirophasic diameter changes were in the normal range (greater than or equal to 50%); findings are consistent with normal central venous pressure. Carotid Artery Summary:: 07/06 CAROTID ULTRASOUND: No significant plaque is visible. The velocity measurements are within the normal range. No stenosis is visible. Both vertebral arteries show antegrade flow. IMPRESSION: Minimal plaque. No significant stenosis. Pulmonary Function Summary: 11/09 Interpretation Spirometry: There is no airflow limitation. There is no significant bronchodilator response. There is inspiratory loop blunting. Lung Volumes: Lung volumes are normal. Diffusion Capacity: Normal diffusion. Airway Pressure: Normal airways resistance. Impression Normal pulmonary function testing but with inspiratory loop blunting, which in the correct clinical context could represent vocal cord dysfunction. Clinical Correlation therefore is recommended. Anesthesia Assessment and Plan Anesthesia History Personal History: No History of Anesthesia Complications Family History: No Family History of Anesthesia Complications Exercise Tolerance Exercise Tolerance: Metabolic Equivalents<4 Pertinent Negatives Pertinent Negatives: No Symptoms of GERD Cardiac & Pulmonary Exam Cardiac Exam: Normal S1/S2 Heart Sounds Pulmonary Exam: Clear Bilateral Breath Sounds Cardiac and Pulmonary Comment:: Hx AFib. Rate slow. Slight irregular Implantable Cardiac Device Does patient have a Pacemaker or an ICD?: No Airway Exam Known Difficult Airway: No Mallampati Class: 2 Mouth Opening: Normal (> 3cm) Thyromental Distance: Greater than 3 cm Neck Range of Motion: Full ROM Neck Circumference: Normal Teeth Condition: Removable Dentures/Plates Upper and Removable Dentures/Plates Lower ASA Classification ASA Score: ASA 2 Emergency Case?: No NPO Status NPO Status: NPO Clears >2 hours, Solids >8 hours Anesthesia Plan Resuscitation Status: Full Code Anesthesia Technique: MAC Anesthesia Airway Planned: Natural Airway Monitors Used: Standard Monitors Preoperative Comments:: Used daughter and interpretive services to gain history and permission. Will have no sedation with pt agreement. Stable current health.
[2022-09-18 09:50] VITALS: BMI 32.2
[2022-09-18] MEDS: Povidone-Iodine Ophth 30 ML BTL (10:23)
[2022-09-18] MEDS: Tetracaine 0.5% 4 ML BTL OD (10:23)
[2022-09-18] MEDS: Duovisc Viscoelastic System EACH 1 EACH (10:29)
[2022-09-18] MEDS: Lidocaine 1% Pres-Free 5 ML VIAL (10:30)
[2022-09-18] MEDS: Phenylephrine/Lidocaine (15/10) MG/ML 1 ML VIAL (10:31)
[2022-09-18 10:54] VITALS: BP 121/84; PULSE 65; RESP 18; TEMP 36.7; O2SAT 98
--- NOTE | 2022-09-18 10:54 | W.PM.DSUDISC ---
Date of service: 09/18/22 Time of Service: 10:54 Discharge Plan Disposition Patient Disposition: Home Discharge Details Attending Provider: Alejandro Ferguson Primary Care Provider: Juwan Mark Home Meds and New Rx's Prescriptions: No Action gabapentin [Neurontin] 300 mg capsule 300 mg PO BID Qty: 180 3RF Rx Instructions: TAKE 1 CAP IN THE MORNING AND TAKE 1 CAP AT NIGHT triamcinolone acetonide 0.1 % cream 1 applic TP TID PRN Qty: 80 2RF albuterol sulfate 90 mcg/actuation HFA aerosol inhaler 2 puff inhalation Q6H PRN (Reason: shortness of breath or wheezing) Qty: 8.5 0RF cholecalciferol (vitamin D3) [Vitamin D3] 25 mcg (1,000 unit) capsule 2,000 unit PO DAILY benazepril-hydrochlorothiazide 20-25 mg tablet 1 tab PO DAILY Qty: 90 3RF Eliquis 5 mg tablet 5 mg PO BID 90 Days Qty: 180 3RF atorvastatin 40 mg tablet 40 mg PO HS Qty: 90 4RF potassium chloride 20 mEq tablet,ER particles/crystals 20 meq PO DAILY Qty: 90 3RF vitamin E (dl, acetate) 400 UNIT capsule 1 cap PO DAILY Discharge Orders Discharge Orders: Discharge Order (Routine); Ordered 09/18/22 Ordered By: Alejandro Ferguson DS: Diagnosis Discharge Diagnosis (1) Nuclear age-related cataract, right eye: Status: Resolved
--- NOTE | 2022-09-18 10:55 | ROE_ITS ---
Date of service: 09/18/22 Time of Service: 10:55 Operative Note Operative Note DATE OF PROCEDURE: 09/18/22 PRE-OP DIAGNOSIS: Nuclear cataract, right eye POST-OP DIAGNOSIS: same PROCEDURE: Cataract extraction using phacoemulsification with intraocular lens implant, right eye SURGEON: Alejandro Ferguson ANESTHESIA TYPE: Local By Surgeon and MAC Refer to Anesthesia Record ESTIMATED BLOOD LOSS: 0 PATHOLOGY: none sent COMPLICATIONS: None Patient was transported to: same day Patient's condition: stable Implants: Severino Clareon [id number] Indications: Progressive decreased vision due to cataract, right eye Procedure Description: CATARACT SURGERY OPERATIVE REPORT PREOPERATIVE DIAGNOSIS: Nuclear cataract, right eye POSTOPERATIVE DIAGNOSIS: Same OPERATION: Cataract extraction using phacoemulsification with posterior chamber intraocular lens implant, right eye. IOL: IOL Dinkey Mechanic/Model: Severino Clareon [id number] IOL Power: + 21.5 diopters IOL Serial Number: [id number] Optic Diameter: 6.0mm Haptic/Overall Diameter: 13.0mm PHACO INFO: Severino[employer]ivity Labsurion Vision System with OZil and Active Fluidics Cumulative Dispersed Energy (CDE): 17.81 seconds SURGEON: Alejandro Ferguson MD, IGOR ANESTHESIA: Monitored Anesthesia Care (MAC), with local sub-tenon's anesthetic infiltration COMPLICATIONS: None SPECIMENS: None INDICATIONS FOR PROCEDURE: The patient is an 87-year-old male with history of diminished visual acuity in his right eye secondary to the development of nuclear cataract. He also has history of retinal vein occlusion in the right eye. Visual acuity measures 2200 in the presence of dense cataract and retinal vein occlusion. The option of cataract surgery was offered to the patient and he wished to proceed. See clinic chart for detailed notes. PROCEDURE: The correct surgical eye was identified and marked as the right eye and the pupil was dilated in the preoperative area using mydriatics and cycloplegics. The dilated pupil size was 7.0 mm. The patient elected to proceed without oral sedation. The patient was brought to the operating room where cardiopulmonary monitoring was instituted and surgical time-out was performed, confirming the correct operative eye and IOL power. Topical anesthesia was administered and ophthalmic povidone-iodine 5% was instilled into the conjunctival fornices. The bridger-ocular area was prepped with Betadine 10% solution and draped in the usual sterile fashion for intraocular surgery, including an aperture drape. A Tegaderm transparent film dressing was cut in half and used to cover the lashes and lid margins. Care was taken to sequester the lashes and lid margins under the Tegaderm dressing. A lid speculum was placed between the lids of the operative eye and the [place]-Deyvi operating microscope was maneuvered into position. Rosa scissors were then used to make a conjunctival buttonhole approximately 6mm posterior to the limbus in the inferonasal quadrant. Blunt dissection was carried out to expose bare sclera, and a blunt-tipped sub-tenon?s anesthesia cannula was introduced and passed posteriorly along the globe where non- preserved plain lidocaine was injected into posterior sub-Tenon?s space. A sideport knife was used to make a paracentesis port inferiortemporally. Intraocular phenylephrine/lidocaine was injected into the anterior chamber. The anterior chamber was then filled with viscoelastic. A keratome knife was used to construct a two--plane near-clear corneal tunnel extending 2.0mm into clear cornea in the superiortemporal position.. A flap was raised on the anterior capsule and capsulorhexis forceps were used to complete a continuous curvilinear capsulorhexis of 5.5 mm. Balanced salt solution was then used to perform cortical cleaving hydrodissection and nuclear hydrodelineation until the lens could be freely rotated within the capsular bag. The lens nucleus was then disassembled and removed within the capsular bag and iris plane using phacoemulsification. Residual cortical material was removed using the I/A handpiece. The posterior capsule was carefully polished to remove as much residual lens epithelial cells as safely possible. The capsular bag was then inflated and the anterior chamber deepened with viscoelastic. The lens implant described above was inserted into the capsular bag using the Severino Autonome Injector. A Kuglen hook was used to dial the IOL into position. Residual viscoelastic was then removed first from posterior to the IOL, then from the anterior chamber using the I/A handpiece. The lens implant was noted to center nicely within the capsular bag. The incisions were stromally hydrated, and the anterior chamber was reformed using BSS. Then 0.5cc of moxifloxacin 1.0mg/ml were injected into the capsular bag and anterior chamber. The incisions were checked with a Weck spear and found to be secure. Several drops of ophthalmic povidone-iodine 5% were then applied to the eye followed by two drops of Imprimis combination prednisolone/moxifloxacin/nepafenac solution. The drapes were removed and a clear plastic protective eye shield was placed over the eye. The patient was then returned to [facility] Day Surgery in stable condition.
--- NOTE | 2022-09-18 11:28 | W.ANESPOSTOP ---
Postoperative Evaluation Date, Time and Location Date Performed: 09/18/22 Time Performed: 11:00 Patient Location: Day Surgery Unit Vital Signs Most Recent Imported Vital Signs: Most Recent Vital Signs Temp Pulse Resp BP Pulse Ox 36.7 C 65 18 121/84 98 09/18/22 10:54 09/18/22 10:54 09/18/22 10:54 09/18/22 10:54 09/18/22 10:54 Pain Score Most Recent Pain Score: Most Recent Pain Score Pain Level 0 09/18/22 10:54 Assessment Mental Status: Awake (Alert & Oriented to Patient Baseline) Airway and Respiratory Function: Patent airway with normal (patient baseline) respiratory exam Cardiovascular Function: Hemodynamically Stable Hydration Status: Adequately Hydrated Nausea & Vomiting: No Nausea or Vomiting Pain: Pt. Denies Any Pain Peripheral Nerve Block: Patient did not receive a nerve block
== END 2022-09-18 11:11 | disposition home or self-care (01) ==
PROVIDERS: PCP Nurse Practitioner Family; Visit Provider Ophthalmology
PROC: (CPT 66984; principal; 2022-09-18 10:30)
DX: H25.11 Age-related nuclear cataract, right eye (principal); I10 Essential (primary) hypertension; R00.1 Bradycardia, unspecified
CPT/HCPCS: 66984; V2632

== ENCOUNTER 2022-09-20 01:15 | Emergency (ER) | payer MEDICARE, MEDICAID, SELFPAY ==
[2022-09-20] VITALS (19 sets, daily range): BP systolic 147–184; BP diastolic 66–97; PULSE 51–69; RESP 14–21; O2SAT 93–97
--- NOTE | 2022-09-20 01:15 | RT.EKG_ITS ---
APPROVED REPORT Exam: Resting ECG Reason for Exam: chest pain Patient Location: E HR:59 bpm ECG Measurements Heart Rate 59 AXIS MT 204 P 0 QRSd 86 QRS 87 QT 432 T -25 QTc 429 Conclusion Sinus rhythm...normal P axis, V-rate 60- 99 Ventricular trigeminy...trigeminy string>6 w/ V complexes Nonspecific repol abnormality, inferior leads...ST dep, T neg, II III aVF
--- NOTE | 2022-09-20 01:45 | DI.CT_ITS ---
Exam(s) CT THORAX ABD/PEL CTA EXAM: CT THORAX ABD/PEL CTA CLINICAL HISTORY: chest/abdomen pain, ?dissection. TECHNIQUE: Imaging Protocol: Axial CT angiography was performed with multi-slice acquisition and m ulti-planar and/or 3D reconstructions. CONTRAST MATERIAL: Intravenous: Omnipaque 350 contrast volume:100 mL Oral: No COMPARISON: CT CT ABDOMEN PELVIS WO from 01/24/2019 FINDINGS: The examination is limited due to patient motion artifact. CHEST: Tracheobronchial tree: Patent where visualized. Pulmonary parenchyma: No consolidation or dominant measurable mass. No architectural distortion. Pulmonary Arteries: No evidence of filling defect to suggest pulmonary emboli. Mediastinum and Deloris: No dominant adenopathy or fluid collection. There is a small hiatal hernia. Th e esophagus is otherwise unremarkable. Visualized thyroid: Unremarkable. Pleura: No effusion or pneumothorax. Heart: Mild cardiomegaly. Mild coronary artery calcification is present. No pericardial effusion. Aorta: Thoracic aorta non-dilated. Atherosclerosis is present. Soft Tissues: Unremarkable. Bones: Within normal limits for the patient's age. ABDOMEN AND PELVIS: Abdomen: Celiac axis/mesenteric arteries: No evidence of occlusion or significant stenosis. Mild atherosclero sis at the origins. Renal Arteries: No evidence of occlusion or significant stenosis. There is a single renal artery per fusing each kidney. Atherosclerosis at the origin of the renal arteries bilaterally. Aorta: No evidence of occlusion or significant stenosis. No aneurysm or dissection. Atherosclerosi s is present. Pelvis: Iliac Arteries: No evidence of occlusion or significant stenosis. Atherosclerosis is present. Common Femoral Arteries: No evidence of occlusion or significant stenosis. Atherosclerosis is prese nt. ABDOMEN: Liver: Normal density. No measurable mass. Gallbladder and Biliary Tract: No radiodense calculus or dilation. Pancreas: Normal density, no abnormal calcifications or inflammatory process. Spleen: There are several hyperdense enhancing lesions in the spleen. Adrenals: No masses seen. Kidneys: Normal size, contour and axis. No radiodense stones or obstructive uropathy. There is a stab le simple left renal cyst. No follow-up is recommended. Bowel: No obstruction or bowel wall thickening. No evidence of appendicitis. Peritoneal Cavity: No ascites, collection or mesenteric inflammatory response. No free air. Lymph Nodes: Within normal limits. Bones: Within normal limits for the patient's age. Soft Tissues: There are bilateral fat containing inguinal hernias. There is a small fat containing u mbilical hernia. PELVIS: Bladder: Symmetric distention, no gross wall thickening. Reproductive Organs: Prostate gland is mildly enlarged. Lymph Nodes: Within normal limits. Bones: Within normal limits for the patient's age. IMPRESSION: 1. No evidence of thoracic or abdominal aneurysm or dissection. 2. Multiple enhancing splenic lesions. Please correlate with patient's clinical history. Recommend follow-up CT in 6-12 months. RADIATION DOSE DELIVERED: 1,172.19mGy.cm Total DLP DATA REPOSITORY: All CT scans at this facility are submitted to the National Radiology Data Registry (NRDR) Dose Index Registry (DIR) with the [employer] (A[employer]). RADIATION OPTIMIZATION: All CT scans at this facility use at least one of these dose optimization te chniques: automated exposure control; mA and/or kV adjustment per patient size (includes targeted exa ms where dose is matched to clinical indication); or iterative reconstruction.
[2022-09-20 01:47] LABS: Abs Immature Grans 0.02 10^3/uL (0.0-0.06); Absolute Basophil Count 0.03 10^3/uL (0.0-0.2); Absolute Eosinophil Count 0.36 10^3/uL (0.0-0.7); Absolute Lymphocyte Count 1.16 10^3/uL (1.2-3.4); Absolute Monocyte Count 0.62 10^3/uL (0.1-0.8); Absolute Neutrophil Count 4.23 10^3/uL (1.2-6.7); Basophils % 0.5; Eosinophils % 5.6; HGB 14.1 g/dL (13.5-17.5); Immature Grans % 0.3; Lymphocytes % 18.1; MCH 28.8 pg (27.0-33.0); MCHC 33.6 % (32.0-36.0); MCV 86 fL (80-95); MPV 8.8 fL (8.0-11.0); Monocytes % 9.7; Neutrophils % 65.8; Platelet Count 153 10^3/uL (130-400); RDW 13.7 % (11.8-14.1); RDW-SD 42.9 fL; WBC 6.42 10^3/uL (4.4-10.8)
--- NOTE | 2022-09-20 01:48 | ED.GENADUL_ITS ---
Discharge Plan Disposition Patient Disposition: Home Condition: Stable Discharge Details Clinical Impression: Chest pain, Epigastric pain Primary Care Provider: Juwan Mark ED Provider: Jonathan Bolden Home Meds and New Rx's Prescriptions: Continued gabapentin [Neurontin] 300 mg capsule 300 mg PO BID Qty: 180 3RF Rx Instructions: TAKE 1 CAP IN THE MORNING AND TAKE 1 CAP AT NIGHT triamcinolone acetonide 0.1 % cream 1 applic TP TID PRN Qty: 80 2RF albuterol sulfate 90 mcg/actuation HFA aerosol inhaler 2 puff inhalation Q6H PRN (Reason: shortness of breath or wheezing) Qty: 8.5 0RF cholecalciferol (vitamin D3) [Vitamin D3] 25 mcg (1,000 unit) capsule 2,000 unit PO DAILY benazepril-hydrochlorothiazide 20-25 mg tablet 1 tab PO DAILY Qty: 90 3RF Eliquis 5 mg tablet 5 mg PO BID 90 Days Qty: 180 3RF atorvastatin 40 mg tablet 40 mg PO HS Qty: 90 4RF potassium chloride 20 mEq tablet,ER particles/crystals 20 meq PO DAILY Qty: 90 3RF vitamin E (dl, acetate) 400 UNIT capsule 1 cap PO DAILY Discharge Instructions Instructions: Epigastric Pain (ED) Additional Instructions: Your ekg, blood work and cat scan did not show any emergent findings. You had lesions in your spleen you've likely had for awhile. Your primary care provider should be made aware of this and you should have a follow up cat scan in 6-12 months follow up with your primary care provider within a week you can take mylanta or tums as needed, follow dosing instructions on packaging if you feel more ill, have severe worsening pain or difficulty breathing return to the emergency department Medical Decision Making 87 yo male who has a hx of afib on eliquis, htn, hld, who comes in with daughter with epigastric pain and chest burning along with belching and feeling bloated for a day or so. Pt has limited ability to speak [place], speaks Syriac, offered an economic history teacher but declined and prefers to use daughter who is agreeable to do so as she states she does so frequently for his appointments. He had an uneventful right cataract surgery earlier this week. The next day he started to experience epigastric and chest burning and belching and lack of appetite. He denies radiation of pain, diaphoresis, vomiting, dyspnea. He is in no distress on exam, oriented x4, intermittently does belch. He has tenderness in the ruq, epigastric region and left upper abdomen. He has clear lungs and no murmurs. Unclear etiology for his symptoms though seems possibly gastritis vs gerd. Given his age however and risk factors will proceed with ekg/troponin, cbc, cmp, lipase and cta of the chest/abd/pelvis to evaluate for emergent pathology such as dissection, cholecystitis, sbo among other pathologies. labs unremarkable, cta shows no acute findings, has lesions in his spleen likely unrelated to his symptoms tonight and recommended f/u ct in 6-12 months. Pt stable, symptoms resolved shortly after mylanta and he is requesting d/c at this time. He and his daughter are clear that the symptoms started yesterday well over 3 hours ago and they do not want to wait for a delta troponin which I feel is reasonable. I did offer observation admission but pt declined. He was instructed to f/u with his pcp, return precautions given Differential Diagnosis Differential Diagnosis: gerd, nstemi, cholecystitis Medical Records Medical records reviewed: Yes I reviewed the patient's medical records. Imaging Data Radiologic Study: Attestation: I personally reviewed and interpreted this imaging study as follows: Imaging: CT Scan Radiologist's impression: IMPRESSION: 1. No evidence of thoracic or abdominal aortic aneurysm or dissection. 2. Multiple enhancing foci within the spleen.For patients without or with history of cancer, recommend follow-up CT in 6-12 months. Lab Data Lab results reviewed: Yes I reviewed the patient's lab results. ECG Data Attestation: I personally reviewed and interpreted this ECG (s) as follows: Prior ECG tracings: available for review Interpretation: afib rate of 59, no stemi, pvc's HPI General Mode of arrival: ambulatory . Date/Time Provider Initiated Documentation: 09/20/22 01:18 . Information obtained by: patient and family . History of Present Illness 87 year old M presents to the emergency department with the chief complaint of epigastric pain, described as moderate, Quality is described as burning and aching, and is localized to the chest and abdomen. Patient started experiencing this day(s) (1) and it has been intermittent. No relieving factors improve symptom(s), No exacerbating factors reported . Patient notes other (belching). Patient did receive the following treatments prior to arrival, none Related Data Home Medications Medication Instructions Recorded Confirmed vitamin E (dl, acetate) 180 mg 1 cap PO DAILY 09/08/15 09/15/22 (400 unit) capsule cholecalciferol (vitamin D3) 25 2,000 unit PO DAILY 01/21/20 09/15/22 mcg (1,000 unit) capsule (Vitamin D3) gabapentin 300 mg capsule 300 mg PO BID #180 caps 01/21/20 09/15/22 (Neurontin) triamcinolone acetonide 0.1 % 1 applic topical TID PRN #80 grams 06/14/20 09/15/22 topical cream benazepril 20 1 tab PO DAILY #90 tabs 12/22/21 09/15/22 mg-hydrochlorothiazide 25 mg tablet apixaban 5 mg tablet (Eliquis) 5 mg PO BID 90 days #180 tab-caps 01/23/22 09/15/22 atorvastatin 40 mg tablet 40 mg PO HS #90 tab-caps 01/28/22 09/15/22 potassium chloride 20 mEq 20 meq PO DAILY #90 tab-caps 06/19/22 09/15/22 tablet,extended release(part/cryst) albuterol sulfate 90 mcg/actuation 2 puff inhalation Q6H PRN 08/24/22 09/15/22 aerosol inhaler shortness of breath or wheezing #8.5 grams Previous Rx's Medication Instructions Recorded gabapentin 300 mg capsule 300 mg PO BID #180 caps 01/21/20 (Neurontin) triamcinolone acetonide 0.1 % 1 applic topical TID PRN #80 grams 06/14/20 topical cream benazepril 20 1 tab PO DAILY #90 tabs 12/22/21 mg-hydrochlorothiazide 25 mg tablet apixaban 5 mg tablet (Eliquis) 5 mg PO BID 90 days #180 tab-caps 01/23/22 atorvastatin 40 mg tablet 40 mg PO HS #90 tab-caps 01/28/22 potassium chloride 20 mEq 20 meq PO DAILY #90 tab-caps 06/19/22 tablet,extended release(part/cryst) albuterol sulfate 90 mcg/actuation 2 puff inhalation Q6H PRN 08/24/22 aerosol inhaler shortness of breath or wheezing #8.5 grams Allergies Allergy/AdvReac Type Severity Reaction Status Date / Time ibuprofen Allergy Unknown ITCHING Verified 09/18/22 09:04 acetaminophen [From Tylenol] Allergy Verified 09/18/22 09:04 General Stated Complaint: Chest Pain RACHAEL: 3 Review of Systems All systems reviewed & are unremarkable except as noted in HPI and below Constitutional Constitutional: Denies chills, Denies fever(s) and Denies weakness ENT Ears, Nose, Mouth, and Throat: Denies change in voice Cardiovascular Cardiovascular: Denies dyspnea Respiratory Respiratory: Denies cough and Denies dyspnea Gastrointestinal Gastrointestinal: Denies nausea and Denies vomiting Integumentary/Breasts Skin/Breast: Denies rash Neurologic Neurologic: Denies weakness PFSH All Active Problems (Updated 09/20/22 @ 03:45 by Jonathan Bolden MD) Chest pain (Acute) Epigastric pain (Acute) Arthritis (Acute) Bladder stone (Acute 01/27/16) removed / Central retinal vein occlusion [place]Acute 03[place]05/17[place] [facility] [place] Chronic atrial fibrillation (Acute 10/04/15) Hyperplasia of prostate (Acute 10/03/12) Language difficulty (Acute) Not [place] speaker Memory impairment (Acute 05/08/13) 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) Normal B12; Ulnar Eczema (Chronic) Bilateral lower legs HTN (hypertension) (Chronic) Dysuria (Acute) Stenosis of rectum and anus (Acute) Gross hematuria (Acute 01/27/16) Depression (Chronic) Fatigue (Acute) Slow heart rate (Acute) Medical History (Updated 09/20/22 @ 03:45 by Jonathan Bolden MD) Atrial fibrillation BPH (benign prostatic hyperplasia) Contracture, left shoulder Left rotator cuff tear arthropathy Nasal polyp surgically removed Surgical History (Updated 09/18/22 @ 10:55 by Alejandro Ferguson MD) Hx of appendectomy Hx of cystoscopy daughter reports prostate was cleared out S/P excision of lipoma left thigh Family History Mother , 73 Stroke Father , 40 No problems noted. Sister , 73 No problems noted. Sister , 80 Stroke Diabetes Daughter No problems noted. Daughter No problems noted. Social History (Updated 01/26/21 @ 16:37 by Jaelyn Lopez) Smoking/Tobacco Use Status: Former Tobacco Use tobacco type: cigarettes Quit Date: 05/21/15 Second Hand Exposure: Yes Smoking risk assessment performed?: Yes Alcohol Intake: current Alcohol Intake frequency: holidays/special occasions only Alcohol type: beer, wine and hard liquor Drug use: Never Substance use type: does not use Details: alcohol: t-7 Caregiver/Support person: No Housing: house Communication Needs: Language Barriers Do you need help understanding health information?: Always Pets and animals: No Sexually active: No Do you think of yourself as: straight/heterosexual What is your relationship status?: How often do you talk on the phone with friends or family?: three or more times per week How often do you get together with friends or relatives?: once per week Do you belong to any clubs or organized social groups?: no Panel score (0-1 are the most socially isolated patients): 1 What type of physical activity do you participate in: walking Duration: 15-30 minutes/day Frequency: 3-4 times per week Janae/Yarsani: Restorationist Seatbelt use: always Drive intox or ride w/intox driver education instructor: No Do you feel safe at home: Yes Do you feel safe in your relationship?: Yes Additional Social history: Unable to assess ingris, daughter in room Exam Const General: no acute distress Orientation: alert HENOH Head: normal to inspection Ears: external ears normal General nose exam: external nose normal Mouth: moist mucous membranes Eyes General: appearance normal, both eyes and all related structures Neck Neck: normal visual inspection Resp Effort & Inspection: normal respiratory effort Auscultation: clear to auscultation bilaterally Cardio Jugular venous pressure: no JVD Rate: regular rate Heart Sounds: no murmurs GI Palpation: soft and nontender Skin General skin exam: no rashes or lesions noted Neuro General: patient alert and patient oriented x3 Extrem General: normal to inspection Psych Mental Status: mental status grossly normal Course Vital Signs Vital signs: Vital Signs Pulse 67 09/20/22 01:24 Respiratory Rate 18 09/20/22 01:24 Blood Pressure 184/90 H 09/20/22 01:24 Pulse Oximetry 97 09/20/22 01:24 Pulse 67 09/20/22 01:24 Respiratory Rate 18 09/20/22 01:24 Respiratory Effort Normal 09/20/22 01:45 Respiratory Depth Normal 09/20/22 01:45 Respiratory Pattern Normal 09/20/22 01:45 Blood Pressure 184/90 H 09/20/22 01:24 Blood Pressure Position Supine 09/20/22 01:24 Pulse Oximetry 97 09/20/22 01:24 Oxygen Delivery Method Room Air 09/20/22 01:24 Oxygen Flow Rate 0 09/20/22 01:24 Pain Level 10 09/20/22 01:24
[2022-09-20 02:05] LABS: PTT Activated 26.1 sec (21.5-31.9); Prothrombin Time 12.7 sec (9.3-11.0)
[2022-09-20 02:11] LABS: ALT 45 U/L (16-63); AST 23 U/L (15-37); Albumin 3.7 g/dL (3.4-5.0); Alkaline Phosphatase 84 U/L (46-116); Anion Gap 8.7 mmol/L (3-11); BUN 16 mg/dL (7-18); Bilirubin, Total 0.6 mg/dL (0.2-1.0); CO2 29.3 mmol/L (21.0-32.0); CREATININE 0.8 mg/dL (0.70-1.30); Chloride 102 mmol/L (98-107); Estimated GFR 85.65 (mL/min/1.73m2); Glucose 123 mg/dL (74-106); Lipase 74 U/L (16-77); Magnesium 1.6 mg/dL (1.8-2.4); Potassium 3.1 mmol/L (3.5-5.1); Sodium 140 mmol/L (136-145); Total Protein 6.8 g/dL (6.4-8.2); Troponin I < 50 ng/L (<or=60)
[2022-09-20 02:13] LABS: INR 1.2 (0.9-1.1)
[2022-09-20] MEDS: Mylanta Suspension 30 ML CUP PO (02:16)
[2022-09-20] MEDS: Normal Saline Flush 10 ML SYR IVP (02:27)
[2022-09-20] MEDS: Omnipaque 350 MG/ML 100 ML BTL IJ (02:27)
[2022-09-20] MEDS: Normal Saline - Diluent 50 ML VIAL IJ (02:28)
--- NOTE | 2022-09-20 03:35 | DI.VRAD_ITS ---
PROCEDURE INFORMATION: Exam: CTA Chest With Contrast CTA Abdomen and Pelvis With Contrast Exam date and time: 09/20/2022 2:30 AM Age: 87 years old Clinical indication: Other: Chest and abd pain; Abdominal pain; Generalized; Patient HX: Chest/abd pain, ? dissection TECHNIQUE: Imaging protocol: Computed tomographic angiography of the chest with contrast. Computed tomographic angiography of the abdomen and pelvis with contrast. 3D rendering (Not supervised by radiologist): MIP and/or 3D reconstructed images were created by the technologist. Radiation optimization: All CT scans at this facility use at least one of these dose optimization techniques: automated exposure control; mA and/or kV adjustment per patient size (includes targeted exams where dose is matched to clinical indication); or iterative reconstruction. Contrast material: OMNIPAQUE 350; Contrast volume: 100 ml; Contrast route: INTRAVENOUS (IV); COMPARISON: CR XR RIBS LT W PA LAT CHEST 02/19/2020 1:18 PM FINDINGS: VASCULATURE: Pulmonary arteries: Normal. No pulmonary emboli. Aorta: No aortic aneurysm. No aortic dissection. Celiac trunk and mesenteric arteries: No occlusion or significant stenosis. Renal arteries: No occlusion or significant stenosis. Right iliac arteries: No occlusion or significant stenosis. Left iliac arteries: No occlusion or significant stenosis. CHEST: Lungs: Unremarkable. No consolidation. No masses. Pleural spaces: Unremarkable. No pneumothorax. No pleural effusion. Heart: Unremarkable. No cardiomegaly. No pericardial effusion. ABDOMEN AND PELVIS: Liver: No mass. Gallbladder and bile ducts: Unremarkable. No calcified stones. No ductal dilation. Pancreas: Unremarkable. No mass. No ductal dilation. Spleen: Multiple enhancing foci are noted within the spleen. No splenomegaly. Adrenal glands: Unremarkable. No mass. Kidneys and ureters: Left simple renal cyst. Stomach and bowel: Unremarkable. No obstruction. No mucosal thickening. Appendix: No evidence of appendicitis. Intraperitoneal space: Unremarkable. No free air. No significant fluid collection. Urinary bladder: Unremarkable. No mass. Reproductive: Prostatomegaly Lymph nodes: Unremarkable. No enlarged lymph nodes. Bones/joints: Unremarkable. No acute fracture. Soft tissues: Bilateral fat containing inguinal hernias. IMPRESSION: 1. No evidence of thoracic or abdominal aortic aneurysm or dissection. 2. Multiple enhancing foci within the spleen.For patients without or with history of cancer, recommend follow-up CT in 6-12 months. Dictated and Authenticated by: Garcia Mooney MD. Ordering:JENNIFER Castillo MD
== END 2022-09-20 04:11 | disposition home or self-care (01) ==
PROVIDERS: Emergency Provider Emergency Medicine; PCP Nurse Practitioner Family
DX: R06.02 Shortness of breath (principal); R07.89 Other chest pain; R10.13 Epigastric pain
CPT/HCPCS: 71275; 80053; 83690; 93005; 99285; 74174; 83735; 84484; 85025; 85610; 85730; 93010; 99284; J3490

== ENCOUNTER 2022-09-26 14:13 | Outpatient (CLI) | payer MEDICARE, MEDICAID, SELFPAY ==
[2022-09-26 11:57] LABS: Anion Gap 6.7 mmol/L (3-11); BUN 17 mg/dL (7-18); CO2 31.3 mmol/L (21.0-32.0); CREATININE 0.8 mg/dL (0.70-1.30); Calcium 9.5 mg/dL (8.5-10.1); Chloride 103 mmol/L (98-107); Estimated GFR 85.65 (mL/min/1.73m2); Glucose 107 mg/dL (74-106); Potassium 3.3 mmol/L (3.5-5.1); Sodium 141 mmol/L (136-145)
== END 2022-09-26 14:14 | disposition home or self-care (01) ==
LOC: LBO 14:14
PROVIDERS: PCP Nurse Practitioner Family; Visit Provider Nurse Practitioner Family
DX: I10 Essential (primary) hypertension (principal)
CPT/HCPCS: 36415; 80048

== ENCOUNTER 2022-10-02 09:38 | Day surgery (SDC) | payer MEDICARE, MEDICAID, SELFPAY ==
[2022-10-02 09:59] VITALS: BP 145/87; PULSE 62; RESP 16; TEMP 36.2; O2SAT 99
[2022-10-02] MEDS: Tropicam./Phenyleph. (1/2.5%) 5 ML BTL OS ×3 (10:13→10:26)
--- NOTE | 2022-10-02 10:18 | W.ANESPRE ---
General Info Date of Service Date Performed: 10/02/22 Height: 5 ft 2 in Weight: 81.647 kg Body Mass Index (BMI): 32.9 Surgical Procedure: Operation Date: 10/02/22 11:25 Proposed Procedure Side Surgeon p Cataract Extraction with IOL Implant Left Alejandro Ferguson MD Meds Allergies and Home Medications Allergies Allergy/AdvReac Type Severity Reaction Status Date / Time ibuprofen Allergy Unknown ITCHING Verified 09/29/22 10:46 acetaminophen [From Tylenol] Allergy Verified 09/29/22 10:46 Home Medication Medication Instructions Recorded vitamin E (dl, acetate) 180 mg 1 cap PO DAILY 09/08/15 (400 unit) capsule cholecalciferol (vitamin D3) 25 2,000 unit PO DAILY 01/21/20 mcg (1,000 unit) capsule (Vitamin D3) gabapentin 300 mg capsule 300 mg PO BID #180 caps 01/21/20 (Neurontin) triamcinolone acetonide 0.1 % 1 applic topical TID PRN #80 grams 06/14/20 topical cream benazepril 20 1 tab PO DAILY #90 tabs 12/22/21 mg-hydrochlorothiazide 25 mg tablet apixaban 5 mg tablet (Eliquis) 5 mg PO BID 90 days #180 tab-caps 01/23/22 atorvastatin 40 mg tablet 40 mg PO HS #90 tab-caps 01/28/22 potassium chloride 20 mEq 20 meq PO DAILY #90 tab-caps 06/19/22 tablet,extended release(part/cryst) albuterol sulfate 90 mcg/actuation 2 puff inhalation Q6H PRN 08/24/22 aerosol inhaler shortness of breath or wheezing #8.5 grams Current Visit Medications: Current Medications Generic Name Dose Route Start Last Admin Trade Name Freq PRN Reason Stop Dose Admin Acetaminophen 1,000 mg 10/02/22 06:00 Acetaminophen 500 Mg Tab PO 11/01/22 05:59 Q4H PRN PRN Balanced Salt Solution 500 ml 10/02/22 06:00 Balanced Salt Soln.-Plus 500 Ml Bag OP 11/01/22 05:59 DIRECTED SLICK Miscellaneous Medication 0 ml 10/02/22 06:00 Prednisolone 1%, Moxifloxacin 0.5%, Nepafenac 0.1% 5ml Btl OS 11/01/22 05:59 DIRECTED SLICK Miscellaneous Medication 0 ml 10/02/22 06:00 10/02/22 10:13 Tropicam./Phenyleph. (1/2.5%) 5 Ml Btl OS 11/01/22 05:59 1 drp DIRECTED SLICK Administration Tetracaine HCl 0 ml 10/02/22 06:00 Tetracaine 0.5% 4 Ml Btl OS 11/01/22 05:59 DIRECTED SLICK PFSH Active Problems Active Problems: Problem Status Onset Code Nuclear age-related cataract, left eye H25.12 Chest pain R07.9 Epigastric pain R10.13 Arthritis M19.90 Bladder stone 01/27/16 N21.0 Central retinal vein occlusion 03/05/17 H34.8192 Chronic atrial fibrillation 10/04/15 I48.2 Hyperplasia of prostate 10/03/12 N40.0 Language difficulty F80.9 Memory impairment 05/08/13 R41.3 Peripheral neuralgia 10/03/12 M79.2 Eczema L30.9 HTN (hypertension) I10 Dysuria R30.0 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 Gross hematuria 01/27/16 R31.0 Depression F32.9 Fatigue R53.83 Slow heart rate R00.1 Nuclear age-related cataract, right eye H25.11 Medical History Medical History Atrial fibrillation BPH (benign prostatic hyperplasia) Contracture, left shoulder Left rotator cuff tear arthropathy Nasal polyp surgically removed Surgical History Surgical History Hx of appendectomy Hx of cystoscopy daughter reports prostate was cleared out S/P excision of lipoma left thigh Tobacco Smoking/Tobacco Use Status: Former Tobacco Use Passive smoking exposure: Yes Second hand exposure: Yes Alcohol Alcohol Intake: current Alcohol intake frequency: holidays/special occasions only Alcohol type: beer, wine and hard liquor Substance Use Substance use: Never Substance use type: does not use Details: alcohol: t-1, 1/2 glass of wine Vital Signs and Lab Results Lab Results Blood Type / Crossmatch: No Data to Display Complete Blood Count: White Blood Count 6.42 10^3/uL (4.4-10.8) 09/20/22 01:40 Red Blood Count 4.90 10^6/uL (4.36-5.78) 09/20/22 01:40 Hemoglobin 14.1 g/dL (13.5-17.5) 09/20/22 01:40 Hematocrit 42.0 % (40.0-50.0) 09/20/22 01:40 Platelet Count 153 10^3/uL (130-400) 09/20/22 01:40 Complete Metabolic Panel: Sodium 141 mmol/L (136-145) 09/26/22 11:45 Potassium 3.3 mmol/L (3.5-5.1) L 09/26/22 11:45 Chloride 103 mmol/L (98-107) 09/26/22 11:45 Carbon Dioxide 31.3 mmol/L (21.0-32.0) 09/26/22 11:45 BUN 17 mg/dL (7-18) 09/26/22 11:45 Creatinine 0.8 mg/dL (0.70-1.30) 09/26/22 11:45 Est GFR (CKD-EPI 2020) 85.65 (mL/min/1.73m2) 09/26/22 11:45 Magnesium 1.6 mg/dL (1.8-2.4) L 09/20/22 01:40 Calcium 9.5 mg/dL (8.5-10.1) 09/26/22 11:45 Albumin 3.7 g/dL (3.4-5.0) 09/20/22 01:40 Glucose 107 mg/dL (74-106) H 09/26/22 11:45 Liver Function Panel: Alanine Aminotransferase (ALT/SGPT) 45 U/L (16-63) 09/20/22 01:40 Aspartate Amino Transf (AST/SGOT) 23 U/L (15-37) 09/20/22 01:40 Coagulation Panel: INR International Normalized Ratio 1.2 (0.9-1.1) H 09/20/22 01:40 Prothrombin Time 12.7 sec (9.3-11.0) H 09/20/22 01:40 Activated Partial Thromboplast Time 26.1 sec (21.5-31.9) 09/20/22 01:40 Cardiac Panel: Troponin I < 50 ng/L (<or=60) 09/20/22 Arterial Blood Gas: No Data to Display Venous Blood Gas: No Data to Display Pancreas Panel: Lipase 74 U/L (16-77) 09/20/22 01:40 Thyroid Panel: No Data to Display Infectious Disease: No Data to Display Blood Cultures: No Data to Display Toxicology Panel: No Data to Display Imaging and Studies Imaging and Studies Study information below may be from another EMR and interpreted by another provider. Please see original notes in EMR for more complete details. EKG Summary: 01/2020 Conclusion Atrial fibrillation...V-rate 44- 48, irreg A-activity Stress Test Summary: 12/29/15 Impressions: Negative stress test after pharmacologic stress. Summary: 1. Myocardial perfusion imaging: No myocardial perfusion defects noted. 2. The calculated left ventricular ejection fraction after stress: 56%. LV global systolic function is normal. No left ventricular regional motion abnormality. 3. Baseline ECG: Atrial fibrillation. Echocardiogram Summary: 10/03 Summary: 1. Left ventricle: The cavity size was normal. Wall thickness was normal. Systolic function was normal. The estimated ejection fraction was 60-65%. Wall motion was normal; there were no regional wall motion abnormalities. 2. Mitral valve: Mild regurgitation. 3. Left atrium: The atrium was severely dilated. 4. Right ventricle: The cavity size was normal. Wall thickness was normal. Systolic function was normal. 5. Tricuspid valve: Mild-moderate regurgitation. 6. Pulmonary arteries: Pulmonary systolic pressure was in the range of 25mm Hg to 35mm Hg. 7. Inferior vena cava: The vessel was normal in size; the respirophasic diameter changes were in the normal range (greater than or equal to 50%); findings are consistent with normal central venous pressure. Carotid Artery Summary:: 07/06 CAROTID ULTRASOUND: No significant plaque is visible. The velocity measurements are within the normal range. No stenosis is visible. Both vertebral arteries show antegrade flow. IMPRESSION: Minimal plaque. No significant stenosis. Pulmonary Function Summary: 11/09 Interpretation Spirometry: There is no airflow limitation. There is no significant bronchodilator response. There is inspiratory loop blunting. Lung Volumes: Lung volumes are normal. Diffusion Capacity: Normal diffusion. Airway Pressure: Normal airways resistance. Impression Normal pulmonary function testing but with inspiratory loop blunting, which in the correct clinical context could represent vocal cord dysfunction. Clinical Correlation therefore is recommended. Anesthesia Assessment and Plan Anesthesia History Personal History: No History of Anesthesia Complications Family History: No Family History of Anesthesia Complications Exercise Tolerance Exercise Tolerance: Metabolic Equivalents<4 Pertinent Negatives Pertinent Negatives: No Symptoms of GERD Cardiac & Pulmonary Exam Cardiac Exam: Normal S1/S2 Heart Sounds Pulmonary Exam: Clear Bilateral Breath Sounds Implantable Cardiac Device Does patient have a Pacemaker or an ICD?: No Airway Exam Known Difficult Airway: No Mallampati Class: 2 Mouth Opening: Normal (> 3cm) Thyromental Distance: Greater than 3 cm Neck Range of Motion: Full ROM Neck Circumference: Normal Teeth Condition: Removable Dentures/Plates Upper and Removable Dentures/Plates Lower ASA Classification ASA Score: ASA 2 Emergency Case?: No NPO Status NPO Status: NPO Clears >2 hours, Solids >8 hours Anesthesia Plan Resuscitation Status: Full Code Anesthesia Technique: MAC Anesthesia Airway Planned: Natural Airway Monitors Used: Standard Monitors
[2022-10-02 10:19] VITALS: BMI 32.9
[2022-10-02] MEDS: Tetracaine 0.5% 4 ML BTL OS (10:57)
[2022-10-02] MEDS: Povidone-Iodine Ophth 30 ML BTL (11:00)
[2022-10-02] MEDS: Duovisc Viscoelastic System EACH 1 EACH (11:04)
[2022-10-02] MEDS: Lidocaine 1% Pres-Free 5 ML VIAL (11:05)
[2022-10-02] MEDS: Balanced Salt Soln.-PLUS 500 ML BAG OP (11:05)
[2022-10-02] MEDS: Phenylephrine/Lidocaine (15/10) MG/ML 1 ML VIAL (11:06)
[2022-10-02 11:25] VITALS: BP 146/87; PULSE 63; RESP 16; TEMP 36.6; O2SAT 99
--- NOTE | 2022-10-02 11:30 | W.ANESPOSTOP ---
Postoperative Evaluation Date, Time and Location Date Performed: 10/02/22 Time Performed: 11:30 Patient Location: Day Surgery Unit Vital Signs Most Recent Imported Vital Signs: Most Recent Vital Signs Temp Pulse Resp BP Pulse Ox 36.2 C L 62 16 145/87 H 99 10/02/22 09:59 10/02/22 09:59 10/02/22 09:59 10/02/22 09:59 10/02/22 09:59 Pain Score Most Recent Pain Score: Most Recent Pain Score Pain Level 0 10/02/22 09:59 Assessment Mental Status: Awake (Alert & Oriented to Patient Baseline) Airway and Respiratory Function: Patent airway with normal (patient baseline) respiratory exam Cardiovascular Function: Hemodynamically Stable Hydration Status: Adequately Hydrated Nausea & Vomiting: No Nausea or Vomiting Pain: Pt. Denies Any Pain Peripheral Nerve Block: Patient did not receive a nerve block
--- NOTE | 2022-10-02 11:32 | W.PM.DSUDISC ---
Date of service: 10/02/22 Time of Service: 11:32 Discharge Plan Disposition Patient Disposition: Home Discharge Details Attending Provider: Alejandro Ferguson Primary Care Provider: Juwan Mark Home Meds and New Rx's Prescriptions: No Action gabapentin [Neurontin] 300 mg capsule 300 mg PO BID Qty: 180 3RF Rx Instructions: TAKE 1 CAP IN THE MORNING AND TAKE 1 CAP AT NIGHT triamcinolone acetonide 0.1 % cream 1 applic TP TID PRN Qty: 80 2RF albuterol sulfate 90 mcg/actuation HFA aerosol inhaler 2 puff inhalation Q6H PRN (Reason: shortness of breath or wheezing) Qty: 8.5 0RF cholecalciferol (vitamin D3) [Vitamin D3] 25 mcg (1,000 unit) capsule 2,000 unit PO DAILY benazepril-hydrochlorothiazide 20-25 mg tablet 1 tab PO DAILY Qty: 90 3RF Eliquis 5 mg tablet 5 mg PO BID 90 Days Qty: 180 3RF atorvastatin 40 mg tablet 40 mg PO HS Qty: 90 4RF Patient Comments: daughter and pt report he is no longer taking this potassium chloride 20 mEq tablet,ER particles/crystals 20 meq PO DAILY Qty: 90 3RF vitamin E (dl, acetate) 400 UNIT capsule 1 cap PO DAILY Discharge Instructions Stand Alone Forms: Post-op Topical Cataract, Nadia Girard (DSU) Discharge Orders Discharge Orders: Discharge Order (Routine); Ordered 10/02/22 Ordered By: Alejandro Ferguson DS: Diagnosis Discharge Diagnosis (1) Nuclear age-related cataract, left eye: Status: Resolved
--- NOTE | 2022-10-02 11:32 | W.PM.OP ---
Date of service: 10/02/22 Time of Service: 11:32 Operative Note Operative Note DATE OF PROCEDURE: 10/02/22 PRE-OP DIAGNOSIS: Nuclear cataract, left eye POST-OP DIAGNOSIS: same PROCEDURE: Cataract extraction using phacoemulsification with intraocular lens implant, left eye SURGEON: Alejandro Ferguson ANESTHESIA TYPE: Local By Surgeon and MAC Refer to Anesthesia Record PATHOLOGY: none sent COMPLICATIONS: None Patient was transported to: same day Patient's condition: stable Implants: Severino Clareon [id number] Indications: Progressive decreased vision due to cataract, left eye Procedure Description: CATARACT SURGERY OPERATIVE REPORT PREOPERATIVE DIAGNOSIS: Nuclear cataract, left eye POSTOPERATIVE DIAGNOSIS: Same OPERATION: Cataract extraction using phacoemulsification with posterior chamber intraocular lens implant, left eye. IOL: IOL Production Machine Computer Operator/Model: Severino Clareon [id number] IOL Power: +22.5 diopters IOL Serial Number: [id number] Optic Diameter: 6.0mm Haptic/Overall Diameter: 13.0mm PHACO INFO: Severino Lendaurion Vision System with OZil and Active Fluidics Cumulative Dispersed Energy (CDE): 8.84 seconds SURGEON: Alejandro Ferguson MD, IGOR ANESTHESIA: Monitored Anesthesia Care (MAC), with local sub-tenon's anesthetic infiltration COMPLICATIONS: None SPECIMENS: None INDICATIONS FOR PROCEDURE: The patient is an 87-year-old male with history of diminished visual acuity in both eyes secondary to the development of dense bilateral nuclear cataract. He is significantly symptomatic that he desires cataract surgery and attempt to improve and maximize his vision. He has already undergone cataract surgery in the right eye and is doing well postoperatively. He now presents for cataract surgery in the left eye. PROCEDURE: The correct surgical eye was identified and marked as the left eye and the pupil was dilated in the preoperative area using mydriatics and cycloplegics. The dilated pupil size was 6.5 mm. The patient elected to proceed without oral sedation. The patient was brought to the operating room where cardiopulmonary monitoring was instituted and surgical time-out was performed, confirming the correct operative eye and IOL power. Topical anesthesia was administered and ophthalmic povidone-iodine 5% was instilled into the conjunctival fornices. Lidocaine gel was applied to the cornea and the bridger-ocular area was prepped with Betadine 10% solution and draped in the usual sterile fashion for intraocular surgery, including an aperture drape. A Tegaderm transparent film dressing was cut in half and used to cover the lashes and lid margins. Care was taken to sequester the lashes and lid margins under the Tegaderm dressing. A lid speculum was placed between the lids of the operative eye and the Severino LuxOR Revalia operating microscope was maneuvered into position. Rosa scissors were then used to make a conjunctival buttonhole approximately 6mm posterior to the limbus in the inferonasal quadrant. Blunt dissection was carried out to expose bare sclera, and a blunt-tipped sub-tenon?s anesthesia cannula was introduced and passed posteriorly along the globe where non-preserved plain lidocaine was injected into posterior sub-Tenon?s space. A sideport knife was used to make a paracentesis port. Intraocular phenylephrine/lidocaine was injected into the anterior chamber. The anterior chamber was then filled with viscoelastic. A keratome knife was used construct a two-plane clear corneal tunnel extending 2.0mm into clear cornea. A flap was raised on the anterior capsule and capsulorhexis forceps were used to complete a continuous curvilinear capsulorhexis of 5.5 mm. Balanced salt solution was then used to perform cortical cleaving hydrodissection and nuclear hydrodelineation until the lens could be freely rotated within the capsular bag. Posterior pressure was noted, with some iris prolapse through the main incision. The lens nucleus was then disassembled and removed within the capsular bag and iris plane using phacoemulsification. Residual cortical material was removed using the irrigation/aspiration handpiece. The posterior capsule was carefully polished to remove as much residual lens epithelial cells as safely possible. Some posterior pressure was noted. The capsular bag was then inflated and the anterior chamber deepened with viscoelastic. The lens implant described above was inserted into the capsular bag using the Severino Autonome Injector. A Kuglen hook was used to dial the IOL into position. Residual viscoelastic was then removed first from posterior to the IOL, then from the anterior chamber using the I/A handpiece. The lens implant was noted to center nicely within the capsular bag. The incisions were stromally hydrated, and the anterior chamber was reformed using BSS. Then 0.5cc of moxifloxacin 1.0mg/ml were injected into the capsular bag and anterior chamber. The incisions were checked with a Weck spear and found to be secure. Several drops of ophthalmic povidone-iodine 5% were then applied to the eye followed by two drops of Imprimis combination prednisolone/moxifloxacin/nepafenac solution. The drapes were removed and a clear plastic protective eye shield was placed over the eye. The patient was then returned to [facility] in stable condition.
== END 2022-10-02 11:55 | disposition home or self-care (01) ==
LOC: SUR 09:38
PROVIDERS: PCP Nurse Practitioner Family; Visit Provider Ophthalmology
PROC: (CPT 66984; principal; 2022-10-02 11:15)
DX: H25.12 Age-related nuclear cataract, left eye (principal); I10 Essential (primary) hypertension; Z98.41 Cataract extraction status, right eye
CPT/HCPCS: 66984; V2632

== ENCOUNTER 2022-12-01 12:36 | Outpatient (CLI) | payer OTHER, SELFPAY ==
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
[2022-12-01 15:26] LABS: Abs Immature Grans 0.03 10^3/uL (0.0-0.06); Absolute Basophil Count 0.02 10^3/uL (0.0-0.2); Absolute Eosinophil Count 0.33 10^3/uL (0.0-0.7); Absolute Lymphocyte Count 1.47 10^3/uL (1.2-3.4); Absolute Monocyte Count 0.69 10^3/uL (0.1-0.8); Absolute Neutrophil Count 4.18 10^3/uL (1.2-6.7); Basophils % 0.3; Eosinophils % 4.9; HCT 39.1 % (40.0-50.0); HGB 13.2 g/dL (13.5-17.5); Immature Grans % 0.4; Lymphocytes % 21.9; MCH 29.3 pg (27.0-33.0); MCHC 33.8 % (32.0-36.0); MCV 87 fL (80-95); Monocytes % 10.3; Neutrophils % 62.2; Platelet Count 206 10^3/uL (130-400); RBC 4.51 10^6/uL (4.36-5.78); RDW 13.7 % (11.8-14.1); RDW-SD 43.2 fL; WBC 6.72 10^3/uL (4.4-10.8)
[2022-12-01 15:37] LABS: ALT 33 U/L (16-63); AST 20 U/L (15-37); Albumin 3.6 g/dL (3.4-5.0); Alkaline Phosphatase 61 U/L (46-116); Anion Gap 7.5 mmol/L (3-11); BUN 17 mg/dL (7-18); CO2 29.5 mmol/L (21.0-32.0); CREATININE 0.9 mg/dL (0.70-1.30); Calcium 9.3 mg/dL (8.5-10.1); Chloride 102 mmol/L (98-107); Estimated GFR 82.66 (mL/min/1.73m2); Glucose 116 mg/dL (74-106); Potassium 3.2 mmol/L (3.5-5.1); Sodium 139 mmol/L (136-145); Total Protein 6.7 g/dL (6.4-8.2)
[2022-12-01] MEDS: Normal Saline - Diluent 50 ML VIAL IJ (16:03)
[2022-12-01] MEDS: Normal Saline Flush 10 ML SYR IVP (16:04)
[2022-12-01] MEDS: Omnipaque 350 MG/ML 100 ML BTL IJ (16:04)
== END 2022-12-01 12:56 ==
PROVIDERS: PCP Nurse Practitioner Family; Visit Provider Physician Assistant
DX: R07.89 Other chest pain (principal); S22.31XA Fracture of one rib, right side, initial encounter for closed fracture; X58.XXXA Exposure to other specified factors, initial encounter
CPT/HCPCS: 74177; 80053; 70450; 71260; 72125; 85025; J3490

== ENCOUNTER 2024-03-12 14:48 | Outpatient (CLI) | payer MEDICARE, MEDICAID, SELFPAY ==
--- NOTE | 2024-03-12 14:45 | RT.EKG_ITS ---
APPROVED REPORT Exam: Resting ECG Reason for Exam: Chest pain Patient Location: O HR:53 bpm ECG Measurements Heart Rate 53 AXIS [place] [id number] P [id number] QRSd 85 QRS 28 QT 443 T 1 QTc 416 Conclusion Atrial fibrillation...V-rate 42- 63, irreg A-activity Nonspecific repol abnormality, lateral leads...ST dep, T neg, I aVL V5 V6
== END 2024-03-12 14:49 | disposition home or self-care (01) ==
LOC: DI.CM 14:48
PROVIDERS: PCP Nurse Practitioner Family; Visit Provider Nurse Practitioner Family
DX: R07.9 Chest pain, unspecified (principal)
CPT/HCPCS: 93010

== ENCOUNTER 2024-03-17 01:23 | Outpatient (CLI) | payer MEDICARE, MEDICAID, SELFPAY ==
--- NOTE | 2024-03-17 14:53 | DI.US_ITS ---
APPROVED REPORT EXAM: Comprehensive 2D, Doppler, and color-flow Echocardiogram Patient Location: Out-Patient Door Liner: Nadya Aldana RDCS (AE) Indications: Chest pain Other Information Study Quality: Adequate Conclusion Normal left ventricular wall thickness and chamber size. Ejection fraction is 55%. Wall motion is n ormal Normal right ventricular size and function Both atria are normal in size Aortic valve is sclerotic and trileaflet with mild regurgitation and stenosis. Mean gradient is 10 m mHg Normal mitral valve with mild to moderate regurgitation Mild tricuspid regurgitation. Estimated right ventricular systolic pressure is 43 mmHg Ascending aorta measures 3.67 cm Wall motion Left Ventricle The left ventricle is normal size. The left ventricular systolic function is normal. The left ventric ular ejection fraction is within the normal range. There is normal left ventricular wall thickness. T here is normal LV segmental wall motion. There is no ventricular septal defect visualized. LVEF is 55 %. Right Ventricle The right ventricle is normal size. The right ventricular systolic function is normal. Atria Left atrium is moderately dilated. Right atrium is moderately dilated. The interatrial septum is int act with no evidence for an atrial septal defect. Aortic Valve The Aortic valve is sclerotic. Aortic valve is trileaflet. Mild aortic stenosis. Mean gradient is 10 mmHg mild aortic regurgitation. Mitral Valve The mitral valve is normal in structure. No evidence of mitral valve stenosis. Mild to moderate mitr al regurgitation. Tricuspid Valve The tricuspid valve is normal in structure. There is no tricuspid valve stenosis. Mild tricuspid reg urgitation. The RVSP is _42.6 mmHg. Pulmonic Valve The pulmonary valve is normal in structure. There is no pulmonic valvular stenosis. Trace pulmonic re gurgitation. Great Vessels The aortic root is normal in size. The ascending aorta is mildly dilated. Aortic arch is not well vis ualized. IVC is normal in size and collapses >50% with inspiration. Pericardium There is no pericardial effusion. 2D Dimensions IVSD d PLAX 1.25 cm M: 0.6-1.2 Ao Root d 2.74 cm M: 3.1 - 3.7 LVPW d PLAX 1.29 cm M: 0.6 - 1.2 Ao Asc Diam d 3.67 cm M: 2.6 - 3.4 LVID d PLAX 4.11 cm M: 4.2 - 5.8 LVDs 3.00 cm M: 2.5 - 4.0 LV EF Teichholz 53.1 % FS 27.02 % LV EDV (Teich) 74.5 mL LV ESV (Teich) 34.9 mL M-Mode TAPSE 2.00 cm (M/F) >1.7 Auto EF LV EDV A4C 107.4 mL LV EDV A2C 113.1 mL LV EDV BP 109.5 mL LV ESV A4C 49.2 mL LV ESV A2C 51.8 mL LV ESV BP 49.5 mL LVEF(%) A4C 54.2 % LVEF(%) A2C 54.2 % LVEF(%) BP 54.8 % LV SV A4C 58.2 ml LV SV A2C 61.3 ml LV SV BP 60.0 ml LV CO A4C 3.4 L/min LV CO A2C 3.8 L/min LV CO BP 3.6 L/min HR A4C 57.69 BPM HR A2C 62.18 BPM LV EDV Index (BP) LA Volume LA Length A4C 6.9 cm LA Length A2C 6.2 cm LA Area A4C s 28.64 cm2 LA Area A2C s 28.39 cm2 LA Vol A4C A-L 101.31 mL LA Vol A2C A-L 109.50 mL LA Vol Biplane A-L 110.5 mL LA Vol/BSA A4C A-L LA Vol/BSA A2C A-L LA Vol/BSA BP A-L 61.0 mL/m2 LA Vol A4C MOD 93.1 mL LA Vol A2C MOD 104.0 mL LA Vol BP MOD 102.8 mL RA Volume RA Area A4C 22.0 cm2 RA ESV A4C (A-L) 63.4mL RA Vol/BSA A4C A-L RA Length A4C 6.5 cm RA ESV A4C (MOD) 61.3mL LV Diastology MV E' medial 0.049 (>0.07 m/s) MV E Vmax 1.07 (0.4-1.3 m/s) MV E/E' MED 21.57 (<14) MV E' lateral 0.086 (>0.1 m/s) MV E/E' LAT 12.37 (<14) MV E' Average 0.068 m/s MV E/E'(average) 15.72 Aortic Valve AoV Vmax 2.21 m/s LVOT Vmax 0.95 m/s AoV Peak Grad 56.0 mmHg LVOT Peak Grad 3.6 mmHg AoV Area (Vmax) 1.24 cm2 LVOT VTI 0.182 m AoV VTI 0.429 m LVOT Mean Grad 1.7 mmHg AoV Mean Delfino. 1.52 m/s LVOT SV 52.38 mL AoV Mean Grad 10.5 mmHg LVOT Diam s 1.90 cm AoV Area (VTI) 1.22 cm2 AV Regurg Peak Gr. 19.48 mmHg Velocity Ratio 0.43 AR Decel [place] 2.0m/sec2 AR DT 2402 msec AR PHT 696 msec AR Vmax 4.81 m/s Mitral Valve MV DT 145 (160-240 msec) MV Vmax TIPS 1.05 m/s MV Mean Grad 1.4 (<2mmHg) MV VTI 0.334 m Pulmonary Valve PV Vmax 1.02 (0.5-1.5 m/s) RVOT Vmax 0.79 m/s PV Peak Grad 4.1 mmHg RVOT Peak Gr. 2.5 mmHg PV Mean Delfino 0.67 m/s RVOT VTI 0.188 m PV Mean Grad 2.0 mmHg RVOT Mean Gr. 1.5 mmHg Tricuspid Valve RA Pressure 3.00 mmHg TR Vmax 3.15 m/s TV S' 0.11 m/s TR Peak Grad 39.6 mmHg RVSP (TR) 42.6 mmHg
== END 2024-03-17 01:43 ==
LOC: DI 01:23
PROVIDERS: PCP Nurse Practitioner Family; Visit Provider Nurse Practitioner Family
DX: R07.9 Chest pain, unspecified (principal)
CPT/HCPCS: 93306

== ENCOUNTER 2024-04-10 08:09 | Outpatient (CLI) | payer MEDICARE, MEDICAID, SELFPAY ==
--- NOTE | 2024-04-10 08:00 | RT.EKG_ITS ---
APPROVED REPORT Exam: Resting ECG Reason for Exam: afib Patient Location: O HR:56 bpm ECG Measurements Heart Rate 56 AXIS [place] [id number] P [id number] QRSd 109 QRS 7 QT 429 T 175 QTc 415 Conclusion Atrial fibrillation...V-rate 51- 63, irreg A-activity Poor R wave progression Nonspecific repol abnormality, diffuse leads...ST dep, T flat/neg, ant/lat/inf
== END 2024-04-10 08:10 | disposition home or self-care (01) ==
LOC: DI.CARD 08:09
PROVIDERS: PCP Nurse Practitioner Family; Visit Provider Internal Medicine Cardiovascular Disease
DX: I48.20 Chronic atrial fibrillation, unspecified (principal); R00.1 Bradycardia, unspecified
CPT/HCPCS: 93010

== ENCOUNTER → 2024-04-10 13:44 | Outpatient (BNVA) | payer MEDICARE, MEDICAID, SELFPAY | PROVIDERS: PCP Nurse Practitioner Family; Referring Provider Nurse Practitioner Family; Visit Provider Internal Medicine Cardiovascular Disease | DX: I48.20 Chronic atrial fibrillation, unspecified (principal); R07.9 Chest pain, unspecified | CPT/HCPCS: 93005; 99214 ==

== ENCOUNTER 2024-07-09 04:07 | Inpatient (IN) | payer MEDICARE, MEDICAID, SELFPAY ==
[2024-07-09] VITALS (80 sets, daily range): BP systolic 144–216; BP diastolic 56–104; PULSE 64–98; RESP 12–20; TEMP 36.5–37.3; O2SAT 91–100
--- NOTE | 2024-07-09 | DI.RAD_ITS ---
Exam(s) XR KNEE LT 2V AP,LAT EXAM: XR KNEE LT 2V AP,LAT CLINICAL HISTORY: left knee pain. TECHNIQUE: 2D digital imaging was performed. COMPARISON: No exams were available for comparison FINDINGS: Two portable views-AP and lateral Suboptimal study in that the fibular head and neck are not entirely included in the field of view. T here is no evidence of fracture of the tibial plateau nor of the femoral condyles and distal femur. There is no obvious joint effusion. No significant degenerative changes nor osseous lesions. Vascul ar calcification in the popliteal artery is noted. No significant bone lesions. IMPRESSION: No acute osseous findings although please note that the entire fibular head and neck are not included in the field of view of these 2 portable images. DATA REPOSITORY: RADIATION DOSE DELIVERED:
--- NOTE | 2024-07-09 04:15 | RT.EKG_ITS ---
APPROVED REPORT Exam: Resting ECG Reason for Exam: fall Patient Location: E HR:66 bpm ECG Measurements Heart Rate 66 AXIS [place] [id number] P [id number] QRSd 88 QRS 72 QT 462 T -61 QTc 484 Conclusion Atrial fibrillation...? atrial activity Nonspecific repol abnormality, diffuse leads...ST dep, T flat/neg, ant/lat/inf no ST segment or T wave abnormalities to suggest occlusive NC
--- NOTE | 2024-07-09 04:15 | DI.RAD_ITS ---
Exam(s) XR PELVIS AP XR FEMUR LT XR FEMUR RT EXAM: XR PELVIS AP and XR femur bilateral CLINICAL HISTORY: fall. TECHNIQUE: 2D digital imaging was performed.Nine images were obtained. COMPARISON: There are no priors for comparison. FINDINGS: BONES: There is an acute comminuted intertrochanteric fracture of the left femur. There is loss of t he normal femoral angle. The fracture is displaced and mildly impacted. Pelvis is intact as is the right femur. No bony destructive lesion is seen. JOINTS: No dislocation present. There is mild joint space narrowing of the hips bilaterally. SOFT TISSUE: Vascular calcifications are present. There is soft tissue swelling of the left thigh. IMPRESSION: 1. Comminuted displaced intertrochanteric fracture of the left femur. 2. No evidence of a pelvic fracture or right femoral fracture. DATA REPOSITORY: RADIATION DOSE DELIVERED:
--- NOTE | 2024-07-09 04:22 | ED.GENADUL_ITS ---
Discharge Plan Disposition Patient Disposition: Admit to [facility] Condition: Serious Discharge Details Clinical Impression: Femur fracture Primary Care Provider: Juwan Mark ED Provider: Arline Vidal Home Meds and New Rx's Prescriptions: No Action triamcinolone acetonide 0.1 % cream 1 applic TP TID PRN Qty: 80 2RF albuterol sulfate 90 mcg/actuation HFA aerosol inhaler 2 puff inhalation Q6H PRN (Reason: shortness of breath or wheezing) Qty: 8.5 0RF cholecalciferol (vitamin D3) [Vitamin D3] 25 mcg (1,000 unit) capsule 2,000 unit PO DAILY latanoprost 0.005 % drops 1 drp ophthalmic (eye) QPM Qty: 7.5 3RF Rx Instructions: Both eyes atorvastatin 40 mg tablet 40 mg PO HS Qty: 90 4RF Patient Comments: daughter and pt report he is no longer taking this benazepril-hydrochlorothiazide 20-25 mg tablet 1 tab PO DAILY Qty: 90 3RF Eliquis 5 mg tablet 5 mg PO BID 90 Days Qty: 180 3RF potassium chloride 20 mEq tablet,ER particles/crystals 20 meq PO DAILY Qty: 90 3RF vitamin E (dl, acetate) 400 UNIT capsule 1 cap PO DAILY HPI General Mode of arrival: EMS . Date/Time Provider Initiated Documentation: 07/09/24 04:17 . Limitations to Documentation: language barrier . Information obtained by: patient and family . HPI Narrative: 88yo M with hx afib on eliquis, HTN, presenting via EMS after fall. Patient reports he lost his balance and fell around 0330; daughter heard a 'thud' and then found him on the floor. He denies striking his head or losing consciousness, was awake and alert for daughter. Unable to get up from floor. Has left hip pain, improved after 50mcg of fentanyl from EMS. Denies numbness or tingling to LLE. No headache, neck pain, back pain, nausea, vomiting, numbness, tingling, focal weakness, vertigo, vision changes. No chest pain, shortness of breath, or presyncope at any point. In his usual state of health prior to this event. Related Data Home Medications ?Medication ?Instructions ?Recorded ?Confirmed vitamin E (dl, acetate) 180 mg 1 cap PO DAILY 09/08/15 07/09/24 (400 unit) capsule cholecalciferol (vitamin D3) 25 2,000 unit PO DAILY 01/21/20 07/09/24 mcg (1,000 unit) capsule (Vitamin D3) triamcinolone acetonide 0.1 % 1 applic topical TID PRN #80 grams 06/14/20 07/09/24 topical cream albuterol sulfate 90 mcg/actuation 2 puff inhalation Q6H PRN 08/24/22 07/09/24 aerosol inhaler shortness of breath or wheezing #8.5 grams latanoprost 0.005 % eye drops 1 drp ophthalmic (eye) QPM #7.5 mL 02/28/23 07/09/24 atorvastatin 40 mg tablet 40 mg PO HS #90 tab-caps 04/23/23 07/09/24 benazepril 20 1 tab PO DAILY #90 tabs 12/21/23 07/09/24 mg-hydrochlorothiazide 25 mg tablet apixaban 5 mg tablet (Eliquis) 5 mg PO BID 90 days #180 tab-caps 01/23/2407/09 potassium chloride 20 mEq 20 meq PO DAILY #90 tab-caps 05/28/24 07/09/24 tablet,extended release(part/cryst) Previous Rx's ?Medication ?Instructions ?Recorded triamcinolone acetonide 0.1 % 1 applic topical TID PRN #80 grams 06/14/20 topical cream albuterol sulfate 90 mcg/actuation 2 puff inhalation Q6H PRN 08/24/22 aerosol inhaler shortness of breath or wheezing #8.5 grams latanoprost 0.005 % eye drops 1 drp ophthalmic (eye) QPM #7.5 mL 02/28/23 atorvastatin 40 mg tablet 40 mg PO HS #90 tab-caps 04/23/23 benazepril 20 1 tab PO DAILY #90 tabs 12/21/23 mg-hydrochlorothiazide 25 mg tablet apixaban 5 mg tablet (Eliquis) 5 mg PO BID 90 days #180 tab-caps 01/23/24 potassium chloride 20 mEq 20 meq PO DAILY #90 tab-caps 05/28/24 tablet,extended release(part/cryst) Allergies Allergy/AdvReac Type Severity Reaction Status Date / Time acetaminophen (From Tylenol) Allergy Itching Verified 07/09/24 04:13 General Stated Complaint: Orthopedic RACHAEL: 3 Review of Systems Narrative: see HPI Exam Narrative Exam Narrative: GENERAL: Alert. SKIN: Warm and well perfused. Skin tear left elbow. HEAD: Atraumatic, normocephalic without edema, discoloration or evidence of trauma. EYES: PERRL. No scleral icterus or conjunctival injection. NOSE: No discharge, tenderness, laxity. No nasal septal hematoma. MOUTH: No malocclusion or trismus. Moist mucus membranes without blood. NECK: Trachea midline. No discolorations or edema. CV: Irregular, normal s1 and s2. PV: Radial pulses 2+ bilaterally and symmetric. Dorsalis pedis pulses 2+ bilaterally and symmetric. 2+ capillary refill. No extremity edema. CHEST: No abrasions or ecchymosis. Chest symmetric with respirations. No chest wall tenderness. Lungs are clear to auscultation bilaterally. ABDOMEN: No ecchymosis or abrasions. Soft, nondistended, nontender. BACK: No abrasions, skin openings, or ecchymosis. Spine without bony tenderness, no step offs. PELVIC: Pelvis stable. MSK: LLE externally rotated and pain with ROM, otherwise no gross deformities. NEURO: ? GCS 15.? PERRL.? EOMI.? Motor- 5/5 strength symmetric bilateral upper and lower extremities with the exception of LLE which was not strength tested, is able to move ankle/toes independently Sensation- ?Intact to light touch and symmetric multiple dermatomes including upper and lower extremities CRANIAL NERVES: II: Pupils equal and reactive, III, IV, : EOM intact V: normal sensation in V1, V2, and V3 segments bilaterally VII: no asymmetry, no nasolabial fold flattening VIII: normal hearing to speech IX, X: normal palatal elevation, no uvular deviation XI: NT XII: midline tongue protrusion Course Vital Signs Vital signs: Vital Signs Pulse 64 07/09/24 04:05 Respiratory Rate 18 07/09/24 04:05 Blood Pressure 174/68 H 07/09/24 04:05 Pulse Oximetry 91 L 07/09/24 04:05 Temperature 36.5 C 07/09/24 04:12 Temperature Source Skin 07/09/24 04:12 Pulse 64 07/09/24 04:05 Respiratory Rate 18 07/09/24 04:05 Blood Pressure 174/68 H 07/09/24 04:05 Blood Pressure Position Sitting 07/09/24 04:05 Pulse Oximetry 91 L 07/09/24 04:05 Oxygen Delivery Method Room Air 07/09/24 04:05 Oxygen Flow Rate 0 07/09/24 04:05 Medical Decision Making 88yo M with hx afib on eliquis, HTN, presenting via EMS after fall from standing. + AC -HS -LOC. No chest pain, shortness of breath, or presyncope; pt reports lost his balance. Severe left hip pain, improved after 50mcg of fentanyl from EMS. LLE neurovascular intact on exam. Left LE external rotated. Normal neurologic exam. Given fentanyl with zofran for prophalyxis prior to obtaining imaging. -EKG afib with rate in 60's, appropriate intervals, no ST segment or T wave abnormalities to suggest occlusive OK. -Labs reviewed as below, CBC with mild anemia at 12.5, CMP with mild hypokalemia wtih K of 3.0 (oral replacement ordered), hypomagnesium with Mg of 1.5 (oral replacement orders), coags appropriate. -CT head and c-spine independently reviewed; no ICH or displaced fractures on my view on my view, radiology read below with no acute findings. -CXR independently reviewed; no displaced fracture or pneumothorax on my view, radiology read below with no acute findigns. -Plain films hip/pelvis independently reviewed; left intertroch fracture. Discussed with [facility] orthopedics Dr. Rodriguez; requested pt be admitted to medicine service. Discussed with [facility] hospitalist Dr. Babin; pt accepted to medicine service. Awaiting admission orders and transfer to the floor. Imaging Data Radiologic Study: Radiologist's impression: CT head: IMPRESSION: No acute intracranial findings. CT c spine: IMPRESSION: No acute findings CXR: IMPRESSION: No acute cardiopulmonary findings Pelvis: IMPRESSION: Acute intertrochanteric fracture of the proximal left femur L F: IMPRESSION: There is an acute intertrochanteric fracture of the left femur R F: IMPRESSION: No acute findings. Quality:SDOH Health Related Social Needs: No Data to Display PFSH All Active Problems (Updated 07/09/24 @ 06:45 by Arline Vidal MD) Femur fracture (Acute) Arthritis (Acute) Bladder stone (Acute 01/27/16) removed / Central retinal vein occlusion (Acute 03/05/17) [facility] [place]Avast[place]) Chronic atrial fibrillation (Acute 10/04/15) Hyperplasia of prostate (Acute 10/03/12) Language difficulty (Acute) Not [place] speaker Memory impairment (Acute 05/08/13) 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) Normal B12; Ulnar Eczema (Chronic) Bilateral lower legs HTN (hypertension) (Chronic) Dysuria (Acute) Stenosis of rectum and anus (Acute) Gross hematuria (Acute 01/27/16) Depression (Chronic) Fatigue (Acute) Slow heart rate (Acute) Medical History (Updated 07/09/24 @ 06:45 by Arline Vidal MD) Chest pain Contracture, 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 Sister , 73 No problems noted. Sister , 80 Stroke Diabetes Daughter No problems noted. Daughter No problems noted. Social History Smoking/Tobacco Use Status: Former Tobacco Use tobacco type: cigarettes Quit Date: 05/21/15 Second Hand Exposure: Yes Smoking risk assessment performed?: Yes Alcohol Intake: current Alcohol Intake frequency: holidays/special occasions only Alcohol type: beer, wine and hard liquor Drug use: Never Substance use type: does not use Details: alcohol: t-1, 1/2 glass of wine Caregiver/Support person: No Housing: house Communication Needs: Language Barriers Do you need help understanding health information?: Always Pets and animals: No Sexually active: No Do you think of yourself as: straight/heterosexual What is your relationship status?: How often do you talk on the phone with friends or family?: three or more times per week How often do you get together with friends or relatives?: once per week Do you belong to any clubs or organized social groups?: no Panel score (0-1 are the most socially isolated patients): 1 What type of physical activity do you participate in: walking Duration: 15-30 minutes/day Frequency: 3-4 times per week Janae/Muslim: Caodaism Seatbelt use: always Drive intox or ride w/intox hire car driver: No Additional Social history: Unable to assess carinatcarlene, daughter in room
[2024-07-09] MEDS: Ondansetron 4 MG/2 ML VIAL IVP (04:25)
[2024-07-09] MEDS: fentaNYL 100 MCG/2 ML VIAL 25 MCG IVP ×2 (04:25→04:50)
[2024-07-09 04:28] LABS: Abs Immature Grans 0.05 10^3/uL (0.0-0.06); Absolute Basophil Count 0.03 10^3/uL (0.0-0.2); Absolute Eosinophil Count 0.35 10^3/uL (0.0-0.7); Absolute Lymphocyte Count 1.86 10^3/uL (1.2-3.4); Absolute Monocyte Count 0.77 10^3/uL (0.1-0.8); Absolute Neutrophil Count 5.19 10^3/uL (1.2-6.7); Basophils % 0.4 %; Eosinophils % 4.2 %; HCT 37.7 % (40.0-50.0); HGB 12.5 g/dL (13.5-17.5); Immature Grans % 0.6 %; Lymphocytes % 22.5 %; MCH 28.7 pg (27.0-33.0); MCHC 33.2 % (32.0-36.0); MCV 87 fL (80-95); MPV 8.9 fL (8.0-11.0); Monocytes % 9.3 %; Platelet Count 211 10^3/uL (130-400); RBC 4.36 10^6/uL (4.36-5.78); RDW-SD 44.6 fL; WBC 8.25 10^3/uL (4.4-10.8)
[2024-07-09 04:43] LABS: ALT 32 U/L (16-63); AST 22 U/L (15-37); Albumin 3.5 g/dL (3.4-5.0); Alkaline Phosphatase 75 U/L (46-116); Anion Gap 9.6 mmol/L (3-11); BUN 12 mg/dL (7-18); Bilirubin, Total 0.69 mg/dL (0.2-1.0); CO2 27.4 mmol/L (21.0-32.0); CREATININE 0.9 mg/dL (0.70-1.30); Calcium 9.1 mg/dL (8.5-10.1); Chloride 102 mmol/L (98-107); Estimated GFR 82.15 (mL/min/1.73m2); Glucose 170 mg/dL (74-106); Magnesium 1.5 mg/dL (1.8-2.4); Sodium 139 mmol/L (136-145); Total Protein 6.6 g/dL (6.4-8.2)
[2024-07-09 04:44] LABS: INR 1.4 (0.9-1.1); PTT Activated 23.6 sec (20.6-30.2); Prothrombin Time 13.9 sec (9.1-11.1)
[2024-07-09] MEDS: fentaNYL 100 MCG/2 ML VIAL 50 MCG IVP ×2 (05:04→05:16)
--- NOTE | 2024-07-09 05:45 | DI.CT_ITS ---
Exam(s) CT HEAD CERVICAL SPINE WO EXAM: CT HEAD CERVICAL SPINE WO CLINICAL HISTORY: fall on blood thinners. TECHNIQUE: Imaging Protocol: Axial computed tomography images with coronal and sagittal reformatted images were created and reviewed COMPARISON: CT CT HEAD CERVICAL SPINE WO from 12/01/2022 FINDINGS: CT Head: Ventricles and Extra axial spaces: Normal in size and morphology for the patient's age. Hemorrhage: None. Cerebral parenchyma: There are areas of decreased attenuation in the white matter consistent with chr onic microvascular ischemic disease. No acute mass effect. No findings to suggest an acute infarct are seen. Midline shift: None. Brainstem/Cerebellum: Normal. Calvarium: The calvarium is unchanged. The lytic lesion in the right parietal bone is stable. Visualized Paranasal sinuses/Mastoids: There is mucosal thickening in the visualized paranasal sinuse s. No fluid levels are seen. The mastoid air cells are clear. Soft Tissues: Unremarkable. CT Cervical Spine: Bones: No acute fracture or subluxation. Age-appropriate degenerative changes are present in the cerv ical spine. There is straightening of the normal cervical lordosis. This may be due to muscle spasm or patient positioning. Soft Tissues: Unremarkable. Lung Apices: Clear. IMPRESSION: 1. No acute intracranial process. 2. No acute fracture or subluxation in the cervical spine. RADIATION DOSE DELIVERED: 1,194.55mGy.cm Total DLP DATA REPOSITORY: All CT scans at this facility are submitted to the National Radiology Data Registry (NRDR) Dose Index Registry (DIR) with the [employer] (ACR). RADIATION OPTIMIZATION: All CT scans at this facility use at least one of these dose optimization te chniques: automated exposure control; mA and/or kV adjustment per patient size (includes targeted exa ms where dose is matched to clinical indication); or iterative reconstruction.
--- NOTE | 2024-07-09 05:45 | DI.RAD_ITS ---
Exam(s) XR CHEST 1V IN DI DEPT EXAM: XR CHEST 1V IN DI DEPT CLINICAL HISTORY: fall TECHNIQUE: 2D digital imaging was performed of the chest. One image was obtained. An AP view was ob tained. COMPARISON: CR XR RIBS LT W PA LAT CHEST from 02/19/2020 FINDINGS: MEDIASTINUM: Normal. HEART: Cardiomegaly. PULMONARY VASCULATURE: Normal. LUNGS: There is poor inspiration. There are prominent interstitial markings in the lungs bilaterally . This may be part be due to the poor inspiration, but an interstitial pneumonitis or edema cannot b e excluded. Findings are most prominent in the left upper lobe. PLEURAL SPACE: No pleural effusion or pneumothorax. BONE:Within normal limits for the patient's age. OTHER FINDINGS:Normal. IMPRESSION: 1. Cardiomegaly. 2. Mildly prominent interstitial markings in the lungs bilaterally. This may in part be due to poor inspiration but an interstitial pneumonitis or edema cannot be excluded. Please correlate clinically . DATA REPOSITORY: RADIATION DOSE DELIVERED:
[2024-07-09] MEDS: MORPHine 4 MG/ML SYR IVP ×2 (05:52→07:59)
[2024-07-09] MEDS: Magnesium Oxide 400 MG TAB 800 MG PO (06:01)
[2024-07-09] MEDS: Potassium Chloride 20 MEQ TABCR 40 MEQ PO (06:01)
--- NOTE | 2024-07-09 06:03 | DI.VRAD_ITS ---
PROCEDURE INFORMATION: Exam: CT Head Without Contrast Exam date and time: 07/09/2024 4:57 AM Age: 88 years old Clinical indication: Injury or trauma; Blunt trauma (contusions or hematomas); Injury date: 07/09/24; Fall on blood thinners TECHNIQUE: Imaging protocol: Computed tomography of the head without contrast. Radiation optimization: All CT scans at this facility use at least one of these dose optimization techniques: automated exposure control; mA and/or kV adjustment per patient size (includes targeted exams where dose is matched to clinical indication); or iterative reconstruction. COMPARISON: CT HEAD CERVICAL SPINE WO 12/01/2022 4:15 PM FINDINGS: Brain: Intracranial calcified atherosclerotic disease. Cerebral atrophy. Mild periventricular white matter hypoattenuation, congruent with, however nonspecific for, chronic microvascular disease. Cerebral ventricles: Compensatory dilation of the ventricles and CSF spaces. Paranasal sinuses: Scattered mucosal thickening of the visualized sinuses. Few of the ethmoidal air cells demonstrate complete opacification. Mastoid air cells: Visualized mastoid air cells are well aerated. Bones: Focal lytic lesion within the right parietal bone with thinning of the inner and outer tables. 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 Soft tissues: Unremarkable. IMPRESSION: No acute intracranial findings. PROCEDURE INFORMATION: Exam: CT Cervical Spine Without Contrast Exam date and time: 07/09/2024 4:57 AM Age: 88 years old Clinical indication: Injury or trauma; Blunt trauma (contusions or hematomas); Injury date: 07/09/24; Fall on blood thinners TECHNIQUE: Imaging protocol: Computed tomography of the cervical spine without contrast. Radiation optimization: All CT scans at this facility use at least one of these dose optimization techniques: automated exposure control; mA and/or kV adjustment per patient size (includes targeted exams where dose is matched to clinical indication); or iterative reconstruction. COMPARISON: CT HEAD CERVICAL SPINE WO 12/01/2022 4:15 PM FINDINGS: Bones: Extracranial atherosclerotic disease. Diffuse degenerative change of the visualized osseous structures. Demineralized bones diffusely. No significant spinal canal or neural foraminal stenosis. Lungs: Scarring of the pulmonary apices. Soft tissues: Unremarkable. IMPRESSION: No acute findings. Dictated and Authenticated by: Modesto Zuniga MD. Orderin Young Nunn MD
--- NOTE | 2024-07-09 06:21 | DI.VRAD_ITS ---
PROCEDURE INFORMATION: Exam: XR Left Femur Exam date and time: 07/09/2024 5:16 AM Age: 88 years old Clinical indication: Injury or trauma; Fall; Blunt trauma; Hip; Bilateral; Injury date: 07/09/24 TECHNIQUE: Imaging protocol: Radiologic exam of the left femur. Views: 2 views. COMPARISON: CR XR PELVIS AP 07/09/2024 5:11 AM FINDINGS: Bones/joints: There is an acute intertrochanteric fracture of the left femur. Soft tissues: Soft tissue edema overlying the left hip. IMPRESSION: There is an acute intertrochanteric fracture of the left femur. Dictated and Authenticated by: Garcia Mooney MD. Orderin Young Nunn MD
--- NOTE | 2024-07-09 06:22 | DI.VRAD_ITS ---
PROCEDURE INFORMATION: Exam: XR Right Femur Exam date and time: 07/09/2024 5:13 AM Age: 88 years old Clinical indication: Injury or trauma; Fall; Blunt trauma; Hip; Bilateral; Injury date: 07/09/24 TECHNIQUE: Imaging protocol: Radiologic exam of the right femur. Views: 2 views. COMPARISON: CR XR PELVIS AP 07/09/2024 5:11 AM FINDINGS: Bones/joints: Unremarkable. No acute fracture. Soft tissues: Unremarkable. IMPRESSION: No acute findings. Dictated and Authenticated by: Garcia Mooney MD. Orderin Young Nunn MD
--- NOTE | 2024-07-09 06:23 | DI.VRAD_ITS ---
PROCEDURE INFORMATION: Exam: XR Pelvis Exam date and time: 07/09/2024 5:11 AM Age: 88 years old Clinical indication: Injury or trauma; Fall; Blunt trauma (contusions or hematomas); Bilateral; Hip; Injury date: 07/09/24 TECHNIQUE: Imaging protocol: Radiologic exam of the pelvis. Views: 1 or 2 view. COMPARISON: CT CHEST/ABD/PEL W 12/01/2022 4:21 PM FINDINGS: Bones/joints: Acute intertrochanteric fracture of the proximal left femur. Soft tissues: Soft tissue edema overlying the left hip. IMPRESSION: Acute intertrochanteric fracture of the proximal left femur. Dictated and Authenticated by: Garcia Mooney MD. Orderin Young Nunn MD
--- NOTE | 2024-07-09 06:24 | DI.VRAD_ITS ---
PROCEDURE INFORMATION: Exam: XR Chest Exam date and time: 07/09/2024 5:20 AM Age: 88 years old Clinical indication: Injury or trauma; Fall; Blunt trauma (contusions or hematomas); Injury date: 07/09/24 TECHNIQUE: Imaging protocol: Radiologic exam of the chest. Views: 1 view. COMPARISON: CT CHEST/ABD/PEL W 12/01/2022 4:21 PM FINDINGS: Lungs: Unremarkable. No consolidation. Pleural spaces: Unremarkable. No pleural effusion. No pneumothorax. Heart/Mediastinum: The cardiac silhouette is enlarged. Bones/joints: Unremarkable. IMPRESSION: No acute cardiopulmonary findings. Dictated and Authenticated by: Garcia Mooney MD. Orderin Young Nunn MD
[2024-07-09] MEDS: Lidocaine 2% Jelly 6 ML SYR (06:34)
--- NOTE | 2024-07-09 06:52 | OCONE_ITS ---
Date of service: 07/09/24 Time of Service: 15:50 History of Present Illness History of Present Illness Chief Complaint: Left Hip Pain Narrative: Merary is an 88-year-old male who presented to the emergency department after a fall at home. 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 He feels that he lost his balance and fell onto the left side. He had immediate pain and was unable to ambulate. Emergency services brought him to the emergency department where he was diagnosed with comminuted left intertrochanteric hip fracture. He denies any head trauma. He is fully evaluated the emergency department without other secondary injury identified. He denies significant pain in his hip prior to the fall. He does have difficulties with numbness about his feet, peripheral neuropathy. He is on apixaban for chronic anticoagulation due to A-fib. Consults Consult date: 07/09/24 Requesting physician: Arline Vidal Consult Reason Left proximal femur fracture Assessment and Plan Assessment and plan (1) Intertrochanteric fracture of left femur: Status: Acute Assessment and plan: Merary is an 88-year-old who lives some independently and fell at home. He suffered an intertrochanteric fracture left femur. Given the displaced nature of the fracture and the fracture self, I offered operative fixation. This would be in the form of an intramedullary nail. He is on Eliquis which has been held. However, he is still within 24 hours of his last dose. Given this as well as equipment concerns with another hip fracture done today, I would like to to perform the surgery tomorrow. N.p.o. after midnight. Continue to hold the Eliquis. Review of Systems All systems reviewed & are unremarkable except as noted in HPI and below PFSH All Active Problems (Updated 07/09/24 @ 20:09 by James Rodriguez MD) Intertrochanteric fracture of left femur (Acute) Hypokalemia (Acute) Closed left hip fracture (Acute) Femur fracture (Acute) Arthritis (Acute) Bladder stone (Acute 01/27/16) removed / Central retinal vein occlusion (Acute 03/05/17[place] [facility] [place] Chronic atrial fibrillation (Acute 10/04/15) Hyperplasia of prostate (Acute 10/03/12) Language difficulty (Acute) Not [place] speaker Memory impairment (Acute 05/08/13) 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) Normal B12; Ulnar Eczema (Chronic) Bilateral lower legs HTN (hypertension) (Chronic) Dysuria (Acute) Stenosis of rectum and anus (Acute) Gross hematuria (Acute 01/27/16) Depression (Chronic) Fatigue (Acute) Slow heart rate (Acute) Medical History Chest pain Contracture, 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 Sister , 73 No problems noted. Sister , 80 Stroke Diabetes Daughter No problems noted. Daughter No problems noted. Social History Smoking/Tobacco Use Status: Former Tobacco Use tobacco type: cigarettes Quit Date: 05/21/15 Second Hand Exposure: Yes Smoking risk assessment performed?: Yes Alcohol Intake: current Alcohol Intake frequency: holidays/special occasions only Alcohol type: beer, wine and hard liquor Drug use: Never Substance use type: does not use Details: alcohol: t-1, 1/2 glass of wine Caregiver/Support person: No Housing: house Communication Needs: Language Barriers Do you need help understanding health information?: Always Pets and animals: No Sexually active: No Do you think of yourself as: straight/heterosexual What is your relationship status?: How often do you talk on the phone with friends or family?: three or more times per week How often do you get together with friends or relatives?: once per week Do you belong to any clubs or organized social groups?: no Panel score (0-1 are the most socially isolated patients): 1 What type of physical activity do you participate in: walking Duration: 15-30 minutes/day Frequency: 3-4 times per week Janae/Anabaptist: Denominational Seatbelt use: always Drive intox or ride w/intox driver guard: No Additional Social history: Unable to assess polly amado in room Exam Narrative Exam Narrative: He is resting in the supine position in the hospital bed. There is a bumping the left leg to keep it from externally rotating. He seems to be comfortable. He is sleepy. Evaluation the left leg shows a shortened externally rotated left leg. There is no pain to palpation about the knee although there is some prominence medially at the joint line, likely osteophyte. He is able to demonstrate active ankle dorsiflexion and plantarflexion as well as great toe extension and flexion. He reports diminished sensation from the mid leg distally. Palpable DP and PT pulse. Foot is warm well-perfused. Results Last Vital Signs Temp 36.5 C 07/09/24 04:12 Pulse 71 07/09/24 06:31 Resp 14 07/09/24 06:31 BP 197/70 H 07/09/24 06:31 Pulse Ox 99 07/09/24 06:31 Labs 07/09/24 04:16 07/09/24 04:16 Labs: Laboratory Results - last 24 hr 07/09/24 04:16 WBC 8.25 RBC 4.36 Hgb 12.5 L Hct 37.7 L MCV 87 MCH 28.7 MCHC 33.2 RDW 14.0 Plt Count 211 MPV 8.9 Immature Gran % 0.6 Neutrophils % 63.0 Lymphocytes % 22.5 Monocytes % 9.3 Eosinophils % 4.2 Basophils % 0.4 Nucleated RBC % 0.0 Absolute Neutrophils 5.19 Absolute Lymphocytes 1.86 Absolute Monocytes 0.77 Absolute Eosinophils 0.35 Absolute Basophils 0.03 PT 13.9 H INR 1.4 H APTT 23.6 Sodium 139 Potassium 3.0 L Chloride 102 Carbon Dioxide 27.4 Anion Gap 9.6 BUN 12 Creatinine 0.9 Est GFR (CKD-EPI 2020) 82.15 Glucose 170 H Calcium 9.1 Magnesium 1.5 L Total Bilirubin 0.69 AST 22 ALT 32 Alkaline Phosphatase 75 Total Protein 6.6 Albumin 3.5 Imaging Imaging Studies: X-ray of the left hip and femur shows a comminuted intertrochanteric femur fracture. This also image of the left knee which shows some arthritis but no other suspicious lesions or findings. No fracture.
--- NOTE | 2024-07-09 07:37 | HPE_ITS ---
Date of service: 07/09/24 Time of Service: 07:37 Assessment and Plan Assessment and plan (1) Closed left hip fracture: Status: Acute Assessment and plan: -closed left hip fracture as seen on imaging in ED -seen by Ortho, plan for Surgery on Tuesday 07/11 (2) Chronic atrial fibrillation: Status: Acute Assessment and plan: -rate controlled, hold home eliquis in preparation for surgery as noted above (3) HTN (hypertension): Status: Chronic Assessment and plan: -continue home benazepril/hctz (4) Hypokalemia: Status: Acute Assessment and plan: -K 3.0 in ED, given 40mEq PO -continue home 20mEq PO daily -f/u AM BMP History of Present Illness History of Present Illness Chief Complaint: fall, left hip pain Narrative: 88yo male with PMH chronic a-fib on eliquis, HTN, HLD, hypokalemia who presents to the ED after falling earlier in the morning and experiencing ongoing left hip pain. At around 3 AM earlier this morning patient's daughter heard a thud and found patient on the floor. He was able to state that he did not strike his head or losing consciousness. Patient's daughter was unable to get him up off of the floor due to left hip pain which is improved after 50 mics of fentanyl via EMS. He denies any headache, neck pain, back pain, nausea vomiting diarrhea. In the emergency department the patient was noted as having normal vital signs, normal CBC and CMP though was noted as having a shortened and externally rotated left lower extremity which was confirmed to be secondary to a left intertrochanteric fracture on x-ray. Orthopedic surgery stated they would see the patient later and would likely take him to the OR on 07/11/2024. At which time emergency room paged hospitalist for admission for patient with a left hip fracture. Review of Systems All systems reviewed & are unremarkable except as noted in HPI and below PFSH All Active Problems (Updated 07/09/24 @ 07:39 by Noam Babin MD) Hypokalemia (Acute) Closed left hip fracture (Acute) Femur fracture (Acute) Arthritis (Acute) Bladder stone (Acute 01/27/16) removed / Central retinal vein occlusion (Acute 03/05/17) [facility] [place]Avastin [place]) Chronic atrial fibrillation (Acute 10/04/15) Hyperplasia of prostate (Acute 10/03/12) Language difficulty (Acute) Not [place] speaker Memory impairment (Acute 05/08/13) 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) Normal B12; Ulnar Eczema (Chronic) Bilateral lower legs HTN (hypertension) (Chronic) Dysuria (Acute) Stenosis of rectum and anus (Acute) Gross hematuria (Acute 01/27/16) Depression (Chronic) Fatigue (Acute) Slow heart rate (Acute) Medical History (Updated 07/09/24 @ 07:39 by Noam Babin MD) Chest pain Contracture, 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 Sister , 73 No problems noted. Sister , 80 Stroke Diabetes Daughter No problems noted. Daughter No problems noted. Social History Smoking/Tobacco Use Status: Former Tobacco Use tobacco type: cigarettes Quit Date: 05/21/15 Second Hand Exposure: Yes Smoking risk assessment performed?: Yes Alcohol Intake: current Alcohol Intake frequency: holidays/special occasions only Alcohol type: beer, wine and hard liquor Drug use: Never Substance use type: does not use Details: alcohol: t-1, 1/2 glass of wine Caregiver/Support person: No Housing: house Communication Needs: Language Barriers Do you need help understanding health information?: Always Pets and animals: No Sexually active: No Do you think of yourself as: straight/heterosexual What is your relationship status?: How often do you talk on the phone with friends or family?: three or more times per week How often do you get together with friends or relatives?: once per week Do you belong to any clubs or organized social groups?: no Panel score (0-1 are the most socially isolated patients): 1 What type of physical activity do you participate in: walking Duration: 15-30 minutes/day Frequency: 3-4 times per week Janae/Episcopal: Confucianism Seatbelt use: always Drive intox or ride w/intox bottom hoop driver: No Additional Social history: Unable to assess ingris daughter in room Meds Allergies and Home Medications Allergies Allergy/AdvReac Type Severity Reaction Status Date / Time acetaminophen (From Tylenol) Allergy Itching Verified 07/09/24 04:13 Home Medications ?Medication ?Instructions ?Recorded ?Confirmed ?Type vitamin E (dl, acetate) 180 mg 1 cap PO DAILY 09/08/15 07/09/24 History (400 unit) capsule cholecalciferol (vitamin D3) 25 2,000 unit PO DAILY 01/21/20 07/09/24 History mcg (1,000 unit) capsule (Vitamin D3) triamcinolone acetonide 0.1 % 1 applic topical TID PRN #80 grams 06/14/20 07/09/24 Rx topical cream albuterol sulfate 90 mcg/actuation 2 puff inhalation Q6H PRN 08/24/22 07/09/24 Rx aerosol inhaler shortness of breath or wheezing #8.5 grams latanoprost 0.005 % eye drops 1 drp ophthalmic (eye) QPM #7.5 mL 02/28/23 07/09/24 Rx atorvastatin 40 mg tablet 40 mg PO HS #90 tab-caps 04/23/23 07/09/24 Rx benazepril 20 1 tab PO DAILY #90 tabs 12/21/23 07/09/24 Rx mg-hydrochlorothiazide 25 mg tablet apixaban 5 mg tablet (Eliquis) 5 mg PO BID 90 days #180 tab-caps 01/23/24 07/09/24 Rx potassium chloride 20 mEq 20 meq PO DAILY #90 tab-caps 05/28/24 07/09/24 Rx tablet,extended release(part/cryst) Exam Narrative Exam Narrative: Elderly gentleman laying in bed in mild distress secondary to pain, ANO x 4, heart regular rhythm, lungs clear to auscultation bilaterally, abdomen soft, mildly distended, nontender, no visible deformity of the left lower extremity due to patient's position Results Labs 07/09/24 04:16 07/09/24 04:16 Labs: Laboratory Results - last 24 hr 07/09/24 04:16 WBC 8.25 RBC 4.36 Hgb 12.5 L Hct 37.7 L MCV 87 MCH 28.7 MCHC 33.2 RDW 14.0 Plt Count 211 MPV 8.9 Immature Gran % 0.6 Neutrophils % 63.0 Lymphocytes % 22.5 Monocytes % 9.3 Eosinophils % 4.2 Basophils % 0.4 Nucleated RBC % 0.0 Absolute Neutrophils 5.19 Absolute Lymphocytes 1.86 Absolute Monocytes 0.77 Absolute Eosinophils 0.35 Absolute Basophils 0.03 PT 13.9 H INR 1.4 H APTT 23.6 Sodium 139 Potassium 3.0 L Chloride 102 Carbon Dioxide 27.4 Anion Gap 9.6 BUN 12 Creatinine 0.9 Est GFR (CKD-EPI 2020) 82.15 Glucose 170 H Calcium 9.1 Magnesium 1.5 L Total Bilirubin 0.69 AST 22 ALT 32 Alkaline Phosphatase 75 Total Protein 6.6 Albumin 3.5 Last Vital Signs Temp 97.7 F 07/09/24 04:12 Pulse 75 07/09/24 07:00 Resp 13 07/09/24 07:00 BP 194/90 H 07/09/24 06:46 Pulse Ox 99 07/09/24 07:00 Time Spent Time spent with Patient: >75 minutes Time was spent: preparing to see the patient(eg.review tests), obtaining and/or reviewing separately otained hiistory, ordering medications,tests, procedures, referring, communicating with other health health care / medical job titles, indepentently interpreting results, counseling the patient and care coordination
--- NOTE | 2024-07-09 11:11 | W.PC.ACHO ---
Registration Status: Primary Language: Preferred Language: ED Information & Data Chief Complaint Orthopedic 07/09/24 04:26 Triage Note Fell on hardwood floor 07/09/24 04:05 around 0330. left hip affected. laying on right side. 50 mcg of fent given en route. VSS. Able to move feet on affected leg. 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 Atrial fibrillation BPH (benign prostatic hyperplasia) Nasal polyp (Last Reviewed 04/10/24 @ 14:07 by Heather Cisneros MD) Hx of cystoscopy Hx of appendectomy S/P excision of lipoma Most Recent Vital Signs Temperature 36.5 C 07/09/24 04:12 Temperature Source Skin 07/09/24 04:12 Pulse 79 07/09/24 11:01 Pulse 78 07/09/24 11:01 Respiratory Rate 13 07/09/24 11:01 Blood Pressure 189/99 H 07/09/24 11:01 Blood Pressure Mean 119 07/09/24 11:01 Blood Pressure Position Sitting 07/09/24 04:05 Pulse Oximetry 99 07/09/24 11:01 Oxygen Delivery Method Nasal Cannula 07/09/24 04:31 Oxygen Flow Rate 2 07/09/24 04:31 Pain Level 2 07/09/24 11:10 Allergies acetaminophen (From Tylenol) Allergy (Verified 07/09/24 04:13) Itching Precautions Isolation Standard precaution 07/09/24 04:11 IV IV Catheter Type [Left Peripheral IV Antecubital] IV Catheter Type [Right Hand] Saline Lock IV Catheter Gauge [Left 18 Antecubital] IV Catheter Gauge [Right Hand] 20 Diagnostics 07/09/24 Range/Units 04:16 WBC 8.25 (4.4-10.8) 10^3/uL RBC 4.36 (4.36-5.78) 10^6/uL Hgb 12.5 L (13.5-17.5) g/dL Hct 37.7 L (40.0-50.0) % MCV 87 (80-95) fL MCH 28.7 (27.0-33.0) pg MCHC 33.2 (32.0-36.0) % RDW 14.0 (11.8-14.1) % Plt Count 211 (130-400) 10^3/uL MPV 8.9 (8.0-11.0) fL Immature Gran % 0.6 % Neutrophils % 63.0 % Lymphocytes % 22.5 % Monocytes % 9.3 % Eosinophils % 4.2 % Basophils % 0.4 % Nucleated RBC % 0.0 (0.0-0.3) % Absolute Neutrophils 5.19 (1.2-6.7) 10^3/uL Absolute Lymphocytes 1.86 (1.2-3.4) 10^3/uL Absolute Monocytes 0.77 (0.1-0.8) 10^3/uL Absolute Eosinophils 0.35 (0.0-0.7) 10^3/uL Absolute Basophils 0.03 (0.0-0.2) 10^3/uL PT 13.9 H (9.1-11.1) sec INR 1.4 H (0.9-1.1) APTT 23.6 (20.6-30.2) sec Sodium 139 (136-145) mmol/L Potassium 3.0 L (3.5-5.1) mmol/L Chloride 102 (98-107) mmol/L Carbon Dioxide 27.4 (21.0-32.0) mmol/L Anion Gap 9.6 (3-11) mmol/L BUN 12 (7-18) mg/dL Creatinine 0.9 (0.70-1.30) mg/dL Est GFR (CKD-EPI 2020) 82.15 (mL/min/1.73m2) Glucose 170 H (74-106) mg/dL Calcium 9.1 (8.5-10.1) mg/dL Magnesium 1.5 L (1.8-2.4) mg/dL Total Bilirubin 0.69 (0.2-1.0) mg/dL AST 22 (15-37) U/L ALT 32 (16-63) U/L Alkaline Phosphatase 75 (46-116) U/L Total Protein 6.6 (6.4-8.2) g/dL Albumin 3.5 (3.4-5.0) g/dL Intake and Output - 24 Hour Total 07/09/24 04:05 thru 07/09/24 08:15 Intake Total 10 Balance 10 Weight 81 kg Intake: IV 10 Other: Urine Color Pale Yellow Urine Appearance Clear Urinary Catheter Urinary Catheter Date of 07/09/24 Insertion [Urethral (Hill)] Time of insertion [Urethral ( 08:10 Hill)] Falls Risk Assessment History of Falls Admit Due to Fall 07/09/24 04:31 Contributing Factors Confusion,Impairments, 07/09/24 04:31 Incontinence Ambulatory Aids Independent 07/09/24 04:31 Tubes/Lines With any additional score 07/09/24 04:31 Gait Evaluation W/any additional score 07/09/24 04:31 Cognition No cognitive impairment 07/09/24 04:31 Fall Total Score 74 07/09/24 04:31 Level of Risk High Risk 07/09/24 04:31 Problems (Last Updated 04/10/24 @ 14:29 by Heather Cisneros MD) Hypokalemia (Acute) Closed left hip fracture (Acute) Chronic atrial fibrillation (Acute 10/04/15) HTN (hypertension) (Chronic) v v v v v v v v v Sending and/or Receiving Nurses: Please use comment section below to note any information pertinent to the patient hand-off not included above. Information / Comments: Report received from: Cassie Richards RN ( Emergency Department)
[2024-07-09] MEDS: MORPHine 2 MG/ML SYR IVP ×3 (11:56→23:29)
[2024-07-09] MEDS: Acetaminophen 325 MG TAB PO ×2 (11:57→19:52)
[2024-07-09] MEDS: hydroCHLOROthiazide 25 MG TAB PO (12:38)
[2024-07-09] MEDS: Benazepril 10 MG TAB 20 MG PO (12:38)
[2024-07-09] MEDS: Potassium Chloride 20 MEQ TABCR PO (12:39)
[2024-07-09] MEDS: Normal Saline Flush 10 ML SYR IVP ×2 (12:44→19:55)
[2024-07-09] MEDS: Docusate Sodium 100 MG CAP PO (19:55)
[2024-07-09] MEDS: Atorvastatin 40 MG TAB PO (19:55)
[2024-07-09] MEDS: Lactated Ringers 1,000 ML 75 ML IV (23:35)
[2024-07-10] VITALS (36 sets, daily range): BP systolic 133–203; BP diastolic 71–141; PULSE 61–87; RESP 12–20; TEMP 36.5–37.5; O2SAT 88–99; BMI 32.6
[2024-07-10] MEDS: Acetaminophen 325 MG TAB PO ×2 (03:45→19:52)
[2024-07-10] MEDS: hydrOXYzine PAMOATE 25 MG CAP PO (03:45)
[2024-07-10] MEDS: MORPHine 2 MG/ML SYR IVP ×2 (05:56→10:14)
[2024-07-10] MEDS: Lidocaine 2% Jelly 6 ML SYR TP (05:56)
[2024-07-10 06:40] LABS: HCT 34.2 % (40.0-50.0); HGB 11.3 g/dL (13.5-17.5); MCH 29.3 pg (27.0-33.0); MCV 89 fL (80-95); MPV 8.8 fL (8.0-11.0); Platelet Count 176 10^3/uL (130-400); RBC 3.86 10^6/uL (4.36-5.78); RDW 14.4 % (11.8-14.1); RDW-SD 46.3 fL; WBC 8.36 10^3/uL (4.4-10.8)
[2024-07-10 06:56] LABS: Anion Gap 5.2 mmol/L (3-11); BUN 16 mg/dL (7-18); CO2 29.8 mmol/L (21.0-32.0); CREATININE 0.8 mg/dL (0.70-1.30); Calcium 8.9 mg/dL (8.5-10.1); Chloride 104 mmol/L (98-107); Estimated GFR 85.12 (mL/min/1.73m2); Glucose 143 mg/dL (74-106); Magnesium 1.7 mg/dL (1.8-2.4); Potassium 3.6 mmol/L (3.5-5.1); Sodium 139 mmol/L (136-145)
[2024-07-10] MEDS: Normal Saline Flush 10 ML SYR IVP (09:04)
--- NOTE | 2024-07-10 10:05 | W.ANESPRE ---
General Info Date of Service Date Performed: 07/10/24 Height: 5 ft 2 in Weight: 81 kg Body Mass Index (BMI): 32.6 Surgical Procedure: Operation Date: 07/10/24 12:15 Proposed Procedure Side Surgeon p Hip TFNA Left James Rodriguez MD Meds Allergies and Home Medications Allergies Allergy/AdvReac Type Severity Reaction Status Date / Time acetaminophen (From Tylenol) Allergy Itching Verified 07/09/24 04:13 Home Medication ?Medication ?Instructions ?Recorded vitamin E (dl, acetate) 180 mg 1 cap PO DAILY 09/08/15 (400 unit) capsule cholecalciferol (vitamin D3) 25 2,000 unit PO DAILY 01/21/20 mcg (1,000 unit) capsule (Vitamin D3) triamcinolone acetonide 0.1 % 1 applic topical TID PRN #80 grams 06/14/20 topical cream albuterol sulfate 90 mcg/actuation 2 puff inhalation Q6H PRN 08/24/22 aerosol inhaler shortness of breath or wheezing #8.5 grams latanoprost 0.005 % eye drops 1 drp ophthalmic (eye) QPM #7.5 mL 02/28/23 atorvastatin 40 mg tablet 40 mg PO HS #90 tab-caps 04/23/23 benazepril 20 1 tab PO DAILY #90 tabs 12/21/23 mg-hydrochlorothiazide 25 mg tablet apixaban 5 mg tablet (Eliquis) 5 mg PO BID 90 days #180 tab-caps 01/23/24 potassium chloride 20 mEq 20 meq PO DAILY #90 tab-caps 05/28/24 tablet,extended release(part/cryst) Current Visit Medications: Current Medications Generic Name Dose Route Start Last Admin Trade Name Freq PRN Reason Stop Dose Admin Acetaminophen 0 mg 07/09/24 11:49 07/10/24 03:45 Acetaminophen 325 Mg Tab PO 325 mg Q4H PRN PRN Administration Albuterol Sulfate 2 puff 07/09/24 11:49 Albuterol Hfa 8 Gm 60 Puff Inh IH Q6H PRN PRN shortness of breath or wheezing Atorvastatin Calcium 40 mg 07/09/24 20:00 07/09/24 19:55 Atorvastatin 40 Mg Tab PO 40 mg HS SLICK Administration Benazepril HCl 20 mg 07/09/24 13:00 07/10/24 08:22 Benazepril 10 Mg Tab PO Not Given DAILY [facility] Docusate Sodium 100 mg 07/09/24 11:49 07/09/24 19:55 Docusate Sodium 100 Mg Cap PO 100 mg TID PRN PRN Administration Hydrochlorothiazide 25 mg 07/09/24 13:00 07/10/24 08:22 Hydrochlorothiazide 25 Mg Tab PO Not Given DAILY [facility] Hydroxyzine Pamoate 25 mg 07/09/24 21:54 07/10/24 03:45 Hydroxyzine Pamoate 25 Mg Cap PO 25 mg Q6H PRN PRN Administration Ringer's Solution 1,000 mls @ 75 mls/hr 07/09/24 22:00 07/09/24 23:35 IV 75 mls/hr INFUSION SLICK Administration IV Miscellaneous Supplies 1 each 07/09/24 11:49 Iv Access IV DIRECTED [facility] Latanoprost 0 ml 07/09/24 20:00 07/10/24 00:51 Latanoprost 0.005% 2.5 Ml Btl OP Not Given QPM [facility] Morphine Sulfate 2 mg 07/09/24 11:53 07/10/24 05:56 Morphine 2 Mg/Ml Syr IVP 2 mg Q4H PRN PRN Administration Polyethylene Glycol 17 gm 07/09/24 11:49 Polyethylene Glycol 3350 17 Gm Packet PO DAILY PRN PRN Constipation Potassium Chloride 20 meq 07/09/24 13:00 07/10/24 08:23 Potassium Chloride 20 Meq Tabcr PO Not Given DAILY SLICK Sodium Chloride 0 ml 07/09/24 11:49 Normal Saline Flush 10 Ml Syr IVP PRN PRN Sodium Chloride 0 ml 07/09/24 11:49 07/10/24 09:04 Normal Saline Flush 10 Ml Syr IVP 20 ml BID SLICK Administration Sodium Chloride 0 ml 07/09/24 11:49 Normal Saline 10 Ml Vial IJ DIRECTED PRN Triamcinolone Acetonide 0 gm 07/09/24 11:49 Triamcinolone 0.1% Cr 15 Gm Tube TP TID PRN PRN [id number] Acetate 400 units 07/10/24 08:30 07/10/24 08:23 Vitamin E 400 Units Cap PO Not Given DAILY [facility] PFSH Active Problems Active Problems: Problem Status Onset Code Intertrochanteric fracture of left femur Acute S72.142A Hypokalemia Acute E87.6 Closed left hip fracture Acute S72.002A Femur fracture Acute S72.90XA Nuclear age-related cataract, left eye Resolved H25.12 Arthritis Acute M19.90 Bladder stone Acute 01/27/16 N21.0 Central retinal vein occlusion Acute 03/05/17 H34.8192 Chronic atrial fibrillation Acute 10/04/15 I48.2 Hyperplasia of prostate Acute 10/03/12 N40.0 Language difficulty Acute F80.9 Memory impairment Acute 05/08/13 R41.3 Peripheral neuralgia Acute 10/03/12 M79.2 Eczema Chronic L30.9 HTN (hypertension) Chronic I10 Dysuria Acute R30.0 Stenosis of rectum and anus Acute K62.4 Gross hematuria Acute 01/27/16 R31.0 Depression Chronic F32.9 Fatigue Acute R53.83 Slow heart rate Acute R00.1 Nuclear age-related cataract, right eye Resolved H25.11 Medical History Medical History Chest pain Contracture, left shoulder Left rotator cuff tear arthropathy Atrial fibrillation BPH (benign prostatic hyperplasia) Nasal polyp surgically removed Surgical History Surgical History Hx of cystoscopy daughter reports prostate was cleared out Hx of appendectomy S/P excision of lipoma left thigh Tobacco Smoking/Tobacco Use Status: Former Tobacco Use Passive smoking exposure: Yes Second hand exposure: Yes Alcohol Alcohol Intake: current Alcohol intake frequency: holidays/special occasions only Alcohol type: beer, wine and hard liquor Substance Use Substance use: Never Substance use type: does not use Details: alcohol: t-1, 1/2 glass of wine Vital Signs and Lab Results Vital Signs Most Recent Vital Signs in EMR: Most Recent Vital Signs Temp Pulse Resp BP Pulse Ox 37.2 C 77 18 133/87 98 07/10/24 07:28 07/10/24 07:28 07/10/24 07:28 07/10/24 07:28 07/10/24 07:28 Lab Results 07/10/24 06:03 07/10/24 06:03 Blood Type / Crossmatch: No Data to Display Complete Blood Count: White Blood Count 8.36 10^3/uL (4.4-10.8) 07/10/24 06:03 Red Blood Count 3.86 10^6/uL (4.36-5.78) L 07/10/24 06:03 Hemoglobin 11.3 g/dL (13.5-17.5) L 07/10/24 06:03 Hematocrit 34.2 % (40.0-50.0) L 07/10/24 06:03 Platelet Count 176 10^3/uL (130-400) 07/10/24 06:03 Complete Metabolic Panel: Sodium 139 mmol/L (136-145) 07/10/24 06:03 Potassium 3.6 mmol/L (3.5-5.1) 07/10/24 06:03 Chloride 104 mmol/L (98-107) 07/10/24 06:03 Carbon Dioxide 29.8 mmol/L (21.0-32.0) 07/10/24 06:03 BUN 16 mg/dL (7-18) 07/10/24 06:03 Creatinine 0.8 mg/dL (0.70-1.30) 07/10/24 06:03 Est GFR (CKD-EPI 2020) 85.12 (mL/min/1.73m2) 07/10/24 06:03 Magnesium 1.7 mg/dL (1.8-2.4) L 07/10/24 06:03 Calcium 8.9 mg/dL (8.5-10.1) 07/10/24 06:03 Albumin 3.5 g/dL (3.4-5.0) 07/09/24 04:16 Glucose 143 mg/dL (74-106) H 07/10/24 06:03 Liver Function Panel: Alanine Aminotransferase (ALT/SGPT) 32 U/L (16-63) 07/09/24 04:16 Aspartate Amino Transf (AST/SGOT) 22 U/L (15-37) 07/09/24 04:16 Coagulation Panel: INR International Normalized Ratio 1.4 (0.9-1.1) H 07/09/24 04:16 Prothrombin Time 13.9 sec (9.1-11.1) H 07/09/24 04:16 Activated Partial Thromboplast Time 23.6 sec (20.6-30.2) 07/09/24 04:16 Cardiac Panel: No Data to Display Arterial Blood Gas: No Data to Display Venous Blood Gas: No Data to Display Pancreas Panel: No Data to Display Thyroid Panel: No Data to Display Infectious Disease: No Data to Display Blood Cultures: No Data to Display Toxicology Panel: No Data to Display Imaging and Studies Imaging and Studies Study information below may be from another EMR and interpreted by another provider. Please see original notes in EMR for more complete details. EKG Summary: 01/2020 Conclusion Atrial fibrillation...V-rate 44- 48, irreg A-activity Stress Test Summary: 12/29/15 Impressions: Negative stress test after pharmacologic stress. Summary: 1. Myocardial perfusion imaging: No myocardial perfusion defects noted. 2. The calculated left ventricular ejection fraction after stress: 56%. LV global systolic function is normal. No left ventricular regional motion abnormality. 3. Baseline ECG: Atrial fibrillation. Echocardiogram Summary: 10/03 Summary: 1. Left ventricle: The cavity size was normal. Wall thickness was normal. Systolic function was normal. The estimated ejection fraction was 60-65%. Wall motion was normal; there were no regional wall motion abnormalities. 2. Mitral valve: Mild regurgitation. 3. Left atrium: The atrium was severely dilated. 4. Right ventricle: The cavity size was normal. Wall thickness was normal. Systolic function was normal. 5. Tricuspid valve: Mild-moderate regurgitation. 6. Pulmonary arteries: Pulmonary systolic pressure was in the range of 25mm Hg to 35mm Hg. 7. Inferior vena cava: The vessel was normal in size; the respirophasic diameter changes were in the normal range (greater than or equal to 50%); findings are consistent with normal central venous pressure. Carotid Artery Summary:: 07/06 CAROTID ULTRASOUND: No significant plaque is visible. The velocity measurements are within the normal range. No stenosis is visible. Both vertebral arteries show antegrade flow. IMPRESSION: Minimal plaque. No significant stenosis. Pulmonary Function Summary: 11/09 Interpretation Spirometry: There is no airflow limitation. There is no significant bronchodilator response. There is inspiratory loop blunting. Lung Volumes: Lung volumes are normal. Diffusion Capacity: Normal diffusion. Airway Pressure: Normal airways resistance. Impression Normal pulmonary function testing but with inspiratory loop blunting, which in the correct clinical context could represent vocal cord dysfunction. Clinical Correlation therefore is recommended. Anesthesia Assessment and Plan Anesthesia History Personal History: No History of Anesthesia Complications Family History: No Family History of Anesthesia Complications Exercise Tolerance Exercise Tolerance: Metabolic Equivalents<4 Pertinent Negatives Pertinent Negatives: No Symptoms of GERD and No Major Cardiovascular Symptoms or Complaints Cardiac & Pulmonary Exam Cardiac Exam: Normal S1/S2 Heart Sounds (A-fib) Pulmonary Exam: Clear Bilateral Breath Sounds Implantable Cardiac Device Does patient have a Pacemaker or an ICD?: No Airway Exam Known Difficult Airway: No Mallampati Class: 2 Mouth Opening: Normal (> 3cm) Thyromental Distance: Greater than 3 cm Neck Range of Motion: Full ROM Neck Circumference: Normal Teeth Condition: Removable Dentures/Plates Upper and Removable Dentures/Plates Lower ASA Classification ASA Score: ASA 3 Emergency Case?: No NPO Status NPO Status: NPO Clears >2 hours, Solids >8 hours Anesthesia Plan Resuscitation Status: Full Code Anesthesia Technique: General Anesthesia Airway Planned: Endotracheal Tube Monitors Used: Standard Monitors and SedLine
[2024-07-10] MEDS: Lactated Ringers 1,000 ML 75 ML IV ×2 (11:00→17:10)
--- NOTE | 2024-07-10 12:11 | PGE_ITS ---
Date of Service Date of service: 07/10/24 Time of Service: 12:00 Assessment and Plan Assessment and plan (1) Intertrochanteric fracture of left femur: Status: Acute Assessment and plan: Merary is an 88-year-old male who has a intertrochanteric fracture about the left hip. Given the fracture I recommended operative fixation for stabilization of the fracture and to allow mobilization. I discussed this with him and his daughter, power of deputy prosecuting attorney. I reviewed the technical details of the surgery. I discussed the risk to include bleeding, infection, pain, stiffness, hardware prominence, hardware failure, malunion, nonunion, damage nerves and vessels, damage to muscle and tendons. I was also very honest with her that sometimes this is a hallmark of a general health decline. Is possible that he has substantial weakness and limitations following the surgery that prevent independent function and return to home. However, we will be aggressive with physical therapy following the procedure and anticipate a good recovery. All of her questions were answered. We will proceed to the operating room today. Subjective Subjective Interval history since last seen: Continues to have pain. Sleepy but responsive. Pain medication seem to help but not fully. No other new symptoms. Hill catheter in place. No new medical concerns. Exam Narrative Exam Narrative: Supine in the hospital bed. Left lower extremity shortened and externally rotated. Objective Last Vital Signs Temp 37.5 C 07/10/24 11:32 Pulse 82 07/10/24 11:32 Resp 18 07/10/24 11:32 BP 173/93 H 07/10/24 11:32 Pulse Ox 96 07/10/24 11:32 Laboratory Results - last 24 hr 07/10/24 06:03 WBC 8.36 RBC 3.86 L Hgb 11.3 L Hct 34.2 L MCV 89 MCH 29.3 MCHC 33.0 RDW 14.4 H Plt Count 176 MPV 8.8 Sodium 139 Potassium 3.6 Chloride 104 Carbon Dioxide 29.8 Anion Gap 5.2 BUN 16 Creatinine 0.8 Est GFR (CKD-EPI 2020) 85.12 Glucose 143 H Calcium 8.9 Magnesium 1.7 L Time Spent with Patient Time Spent with Patient: 25-34 minutes Time was spent: preparing to see the patient(eg.review tests), obtaining and/or reviewing separately otained hiistory, counseling the patient and care coordination
--- NOTE | 2024-07-10 12:13 | ROE_ITS ---
Operative Note Operative Note PRE-OP DIAGNOSIS: Left Intertrochanteric Femur Fracture POST-OP DIAGNOSIS: same PROCEDURE: Left Intramedullary Fixation of Proximal Femur Fracture SURGEON: James oRdriguez ANESTHESIA TYPE: General LMA/ETT Refer to Anesthesia Record ESTIMATED BLOOD LOSS: 50 PATHOLOGY: none sent COMPLICATIONS: None Patient was transported to: PACU Patient's condition: stable Implants: Depuy-Synthes TFNA 12mm x 170mm Indications: Merary is a 88 year old male who presented to the Emergency Department after a fall. X-rays confirmed the diagnosis of a intertrochanteric fracture of the proximal femur. I reviewed the possible treatment options and given the fracture of the femur, I recommened operative fixation. I discussed the technical details of the surgery. I reviewed the risks such as bleeding, infection, pain, stiffness, malunion, nonunion, hardware prominence, hardware faiilure, malrotation, avascular necrosis, blood clot. Despite these risks, he agreed to proceed. Findings: There was a fracture of the proximal femur which was able to be reduced with traction and internal rotation and external manipulation. Procedure Description: Merary was taken back to the operating room. A general anesthestic was then administered. The feet were wrapped with cast padding and Coban and then placed into the boot liners and then into the boots. Care was taken to protect the skin and make sure the heels were fully down and the boots were stable. The patient was then positioned onto the HANA table. Both legs were held in a neutral position. SCDs were applied. The patient was then slid down onto a perineal post. The arm of the operative side was then placed across the chest and secured. The nonoperative leg was scissored. A gentle reduction was then performed with traction and internal rotation and gentle external manipulation. Prophylactic antibiotics in the form of Cefazolin were administered. 1g of Tranxemic Acid was given intravenously within 30 minutes of incision. The left leg was then prepped with Chloraprep and draped in a standard fashion with shower-curtain type drape with Iodine impregnated skin protection. A timeout to confirm correct identity, side and site, procedure, allergies, anesthesia, and medical concerns was performed. Using fluoroscopy, the starting point was marked over the lateral hip, proximal to the tip of the greater trochanter. A 3cm incision was made through skin and the fascia of the gluteus musculature until the tip of the trochanter was palpable. The starting wire was placed onto the tip, just slightly on the media aspect, and centered in the AP plane. Using a radha, the starting guide wire was buried into the bone. A lateral x-ray confirmed appropriate position and the guidewire was advanced to the level of the lesser trochanter. With a tissue protector, the proximal femur was opened with the opening reamer. The short TFNA was chosen for this case and a Synthes TFNA [id number] nail was selected and opened on the back table. The nail was assembled to the aiming arm on the back table and confirmed to be aligned with the triple sleeve for blade insertion. Using manual force the nail was advanced into the femur. A few light mallet blows advanced the nail to its appropriate position. The triple sleeve was inserted through the targeting arm and the skin, soft tissue, and IT band was then incised. The triple sleeve was advanced down to the lateral femur. A guidewire was advanced into the femoral head where it was noted to be centered. A lateral x-ray was used to confirm centered positioning on the lateral. Happy with the length of the guidewire, this was measured. A 105mm helical blade was opened. The lateral cortex was opened and the path of the blade was reamed with a tapered reamer to appropriate depth. The helical blade was malletted into position and confirmed to be appropriately located on fluoroscopy. The set screw was advanced to a half turn shy of fully tightened, allowing for the helical blade to slide. The targeting device was removed. AP and lateral x-rays of the hip confirmed appropriate positioning within the femur and with good alignment of the fracture. Using the targeting arm, the skin was incised for placement of the distal locking screw. The trochar was inserted through the skin and IT band down onto the lateral cortex of the femur. The 4.2mm drill was advanced across the femur and through the nail. This was measured and an appropriately sized 5.0mm screw was placed. The targeting arm was removed. Final x-rays were obtained. The wounds were thoroughly irrigated. A cocktail consisting of 123mg of Ropiv acaine, 0.25mg of Epinephrine, 0.04mg of Clonidine, and 15mg of Ketorolac, diluted to 50cc was injected throughout the wounds both deep and superficially. The deep fascia of the proximal two wounds was reapproximated with a 0 Vicryl. The deep tisses were closed with a 2-0 Vicryl and the skin was closed with a running subcuticular Monocryl. The wounds were dressed with a Mepilex silver dressing. At the end of the case, all counts were correct. Frankik tolerated the procedure well without known complication and was taken to the PACU for recovery. Physical therapy will start post-operatively, weigh-bearing as tolerated with assistive devices. Anticoagulation will resume tonight. 3 doses of post- operative antibitiocis for prophylaxis will be administered. Date of Procedure: 07/10/24
[2024-07-10] MEDS: ceFAZolin 2 GM/50 ML BAG 50 GM (12:15)
[2024-07-10] MEDS: Tranexamic Acid 1,000 MG/10 ML VIAL 1000 MG (12:25)
--- NOTE | 2024-07-10 12:52 | DI.RAD_ITS ---
Exam(s) XR HIP LT IN OR EXAM: XR HIP LT IN OR CLINICAL HISTORY: Left Hip Pain TECHNIQUE: 2D and realtime digital imaging was performed. CONTRAST MATERIAL: Refer to procedure report. COMPARISON: No exams were available for comparison FINDINGS: Fluoroscopy was provided for Dr. Rodriguez during the performance of a reduction and internal fixatio n of the comminuted intertrochanteric left femoral fracture.. Please refer to the procedure report f or complete details. Ka,r=14.4 mGy IMPRESSION: RADIATION DOSE DELIVERED: 0.0 0.0 0
--- NOTE | 2024-07-10 14:11 | W.ANESPOSTOP ---
Postoperative Evaluation Date, Time and Location Date Performed: 07/10/24 Time Performed: 14:12 Patient Location: PACU Vital Signs Most Recent Imported Vital Signs: Most Recent Vital Signs Temp Pulse Resp BP Pulse Ox 36.7 C 65 12 171/78 H 97 07/10/24 13:51 07/10/24 14:06 07/10/24 14:06 07/10/24 14:06 07/10/24 14:06 Pain Score Most Recent Pain Score: Most Recent Pain Score Pain Level [left hip] 0 07/09/24 16:16 Pain Level 7 07/10/24 10:14 Assessment Mental Status: Arousable with meaningful communication Airway and Respiratory Function: Patent airway with normal (patient baseline) respiratory exam Cardiovascular Function: Hemodynamically Stable Hydration Status: Adequately Hydrated Nausea & Vomiting: No Nausea or Vomiting Pain: Pt. Denies Any Pain Peripheral Nerve Block: Patient did not receive a nerve block
--- NOTE | 2024-07-10 15:17 | W.PM.PROGNOT ---
Date of Service Date of service: 07/10/24 Time of Service: 15:17 Assessment and Plan Assessment and plan (1) Closed left hip fracture: Status: Acute Assessment and plan: -closed left hip fracture as seen on imaging in ED -seen by Ortho, plan for Surgery today 07/10 (2) Chronic atrial fibrillation: Status: Acute Assessment and plan: -rate controlled, hold home eliquis in preparation for surgery as noted above (3) HTN (hypertension): Status: Chronic Assessment and plan: -continue home benazepril/hctz (4) Hypokalemia: Status: Acute Assessment and plan: -K 3.0 in ED, given 40mEq PO -continue home 20mEq PO daily -f/u AM BMP Subjective Subjective Interval history since last seen: Patient seen prior to surgery earlier in the day. He appeared to have his pain controlled and both he and his daughter were looking forward to surgery later in the day. Exam Narrative Exam Narrative: Supine in the hospital bed. Left lower extremity shortened and externally rotated. Objective Last Vital Signs Temp 97.7 F 07/10/24 15:05 Pulse 82 07/10/24 15:05 Resp 18 07/10/24 15:05 BP 140/79 07/10/24 15:05 Pulse Ox 92 07/10/24 15:05 Laboratory Results - last 24 hr 07/10/24 06:03 WBC 8.36 RBC 3.86 L Hgb 11.3 L Hct 34.2 L MCV 89 MCH 29.3 MCHC 33.0 RDW 14.4 H Plt Count 176 MPV 8.8 Sodium 139 Potassium 3.6 Chloride 104 Carbon Dioxide 29.8 Anion Gap 5.2 BUN 16 Creatinine 0.8 Est GFR (CKD-EPI 2020) 85.12 Glucose 143 H Calcium 8.9 Magnesium 1.7 L Time Spent with Patient Time Spent with Patient: >50 minutes Time was spent: preparing to see the patient(eg.review tests), obtaining and/or reviewing separately otained hiistory, ordering medications,tests, procedures, referring, communicating with other health career services assistant, indepentently interpreting results, counseling the patient and care coordination
--- NOTE | 2024-07-10 18:27 | INITIAL_ITS ---
Date of service: 07/10/24 Time of Service: 18:27 Care Management Initial Assmt Initial Assessment Reason for Hospitalization: Left hip fracture Functional Status/Living Situation Patient Presentation: Merary had returned from the OR after fixation of his hip fracture when CM met with him. His daughters, Zahra and Adelina were visiting. Merary was sleepy, and engaged minimally in conversation. He stated that he is not feeling great right now, and provided verbal permission for CM to discuss his discharge plan with his daughters. Merary lives with Zahra in [place]. There is a full fli ght of stairs to get in the house. Merary is generally independent, using a cane for ambulation. He has cognitive deficits, but is able to be home for 8 hours during the day while Zahra is at work. Both daughters expressed concern about him being able to return home, although they would prefer him to be home. They feel that rehab may need to be explored, if needed, but are also discussing options for family to support him further at home, as they feel it would be best for him, especially given his cognitive impairment. PT had not evaluated him yet, and this will likely happen tomorrow, as it was late in the day. CM discussed options for SNF, as well as HH. He is connected to [employer]; his child support case officer is Evelyn. CM will continue to follow. Town of Residence: [place] Resides with: Child (Zahra matias) Significant Other/Family: Local Caregiver/Guardian: Zahra matias, very supportive, is DPOA (will ask for documentation) Natural Supports: Adelina matias, also very supportive Employment Status: Retired Instrumental Activities of Daily Living (ADLs): Requires support with Dishes/food prep, Ranch Rider, Groceries, Heat/Utilities, Laundry and Transportation Activities/Hobbies/SocialSupport: likes taking walks outside in nice weather Medications Medication Management: No Issues/Barriers identified (daughter supports med management) Physical Functioning/Mobility Assistive Device: two canes Advance Directives Advance Directives: Do you have an Advance Directive: N 01/23/19 14:31 AD On File at [facility]: N 01/23/19 14:31 Date Asked 07/09/24 07/09/24 10:26 AD Date Reviewed COLST On File at [facility] COLST Date Scanned Code Status Resuscitation Status Full Code Insurance Coverage/Financial Issues Insurance: [facility] Care Team Visit Care Team Role Provider Type Juwan Mark NP Primary Care Provider NURSE PRACTITIONER InPatient Jean Whaley Other Providers OTHER Arline Vidal MD Emergency Provider [facility] STAFF PHYSICIAN Noam Babin MD Admit Provider [facility] STAFF PHYSICIAN Attending Provider Discharge Potential Discharge Needs: PT Evaluation Anticipated Barriers to Discharge: None Identified Patient/Family Education Needs: Review discharge instructions, discuss Ask Me Three Transportation: Private vehicle Plan: PT will evaluate Merary tomorrow to determine his level of functioning post surgically. Merary will likely return home with new PT, OT vs SNF, if needed. His daughter will transport, if able to. He will follow up with Ortho, his PCP, and his discharge plan of care. CM will continue to follow. Social Determinants of Health Screening Social Determinants of Health last assessed: 07/10/24 Will the Patient Participate in the Screening?: Yes Do you worry about having a steady place to live?: no (lives with daughter, Zahra) Problems where you live: no known problems In the past 12 months, have you had to go without electric, gas, oil or water in your home?: no Have you or anyone in your house had to go without enough food to eat?: no Has lack of transportation kept you from medical appointments or from doing things needed for daily living?: no Has anyone in your life made you feel unsafe or unsupported?: no How hard is it for you to pay for the very basics like food, housing, medical care, and heating? Would you say it is:: Not hard at all Do you want help finding or keeping work or a job?: I do not need or want help If for any reason you need help with day-to-day activities such as bathing, preparing meals, shopping, managing finances, etc., do you get the help you need?: I need a lot more help How often do you feel lonely or isolated from those around you?: Never Do you speak a language other than Bengali at home?: No Health Related Social Needs Health related social needs: problems with daily activities (Z73.9) PFSH All Active Problems (Updated 07/09/24 @ 20:09 by James Rodriguez MD) Intertrochanteric fracture of left femur (Acute) Hypokalemia (Acute) Closed left hip fracture (Acute) Femur fracture (Acute) Arthritis (Acute) Bladder stone (Acute 01/27/16) removed / Central retinal vein occlusion (Acute 03/05/17) [facility] (Avastin OD) Chronic atrial fibrillation (Acute 10/04/15) Hyperplasia of prostate (Acute 10/03/12) Language difficulty (Acute) Not [place] speaker Memory impairment (Acute 05/08/13) 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) Normal B12; Ulnar Eczema (Chronic) Bilateral lower legs HTN (hypertension) (Chronic) Dysuria (Acute) Stenosis of rectum and anus (Acute) Gross hematuria (Acute 01/27/16) Depression (Chronic) Fatigue (Acute) Slow heart rate (Acute) Medical History Chest pain Contracture, 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 Sister , 73 No problems noted. Sister , 80 Stroke Diabetes Daughter No problems noted. Daughter No problems noted. Social History Smoking/Tobacco Use Status: Former Tobacco Use tobacco type: cigarettes Quit Date: 05/21/15 Second Hand Exposure: Yes Smoking risk assessment performed?: Yes Alcohol Intake: current Alcohol Intake frequency: holidays/special occasions only Alcohol type: beer, wine and hard liquor Drug use: Never Substance use type: does not use Details: alcohol: t-1, 1/2 glass of wine Caregiver/Support person: No Housing: house Communication Needs: Language Barriers Do you need help understanding health information?: Always Pets and animals: No Sexually active: No Do you think of yourself as: straight/heterosexual What is your relationship status?: How often do you talk on the phone with friends or family?: three or more times per week How often do you get together with friends or relatives?: once per week Do you belong to any clubs or organized social groups?: no Panel score (0-1 are the most socially isolated patients): 1 What type of physical activity do you participate in: walking Duration: 15-30 minutes/day Frequency: 3-4 times per week Janae/Caodaism: [employer]ar[employer] Seatbelt use: always Drive intox or ride w/intox uke driver: No Additional Social history: Unable to assess privatley, daughter in room
[2024-07-10] MEDS: Normal Saline 1,000 ML 1000 ML IV (18:44)
[2024-07-10] MEDS: Celecoxib 200 MG CAP PO (19:51)
[2024-07-10] MEDS: Atorvastatin 40 MG TAB PO (19:52)
[2024-07-10] MEDS: Docusate Sodium 100 MG CAP PO (19:52)
[2024-07-10] MEDS: ceFAZolin 1 GM/50 ML BAG IVPB (20:00)
[2024-07-10] MEDS: traMADol 50 MG TAB PO (22:22)
--- NOTE | 2024-07-11 | DI.RAD_ITS ---
Exam(s) XR FEMUR LT EXAM: XR FEMUR LT CLINICAL HISTORY: Eval L femur after mobilization, L hip IMN. TECHNIQUE: 2D digital imaging was performed. COMPARISON: CR,XR XR FEMUR LT from 07/09/2024 FINDINGS: 3 views There has been interval ORIF of the intertrochanteric fracture of the left hip with placement of a re construction nail across the fracture site which is supported by intramedullary theresa. Alignment at th e fracture site appears satisfactory. Lesser trochanter is again noted to be avulsed. The distal femur appears intact. There are mild degenerative changes at the knee joint. Vascular c alcification is noted in the SFA artery within Reinaldo's canal. IMPRESSION: Post ORIF left hip as described above DATA REPOSITORY: RADIATION DOSE DELIVERED:
[2024-07-11] MEDS: Acetaminophen 325 MG TAB PO ×2 (02:34→14:07)
[2024-07-11 02:37] VITALS: BP 138/84
[2024-07-11 02:42] VITALS: PULSE 72; RESP 17; TEMP 36.1; O2SAT 95
[2024-07-11] MEDS: ceFAZolin 1 GM/50 ML BAG IVPB (03:53)
[2024-07-11 06:44] LABS: HCT 28.1 % (40.0-50.0); HGB 9.3 g/dL (13.5-17.5); MCH 28.9 pg (27.0-33.0); MCHC 33.1 % (32.0-36.0); MCV 87 fL (80-95); Platelet Count 152 10^3/uL (130-400); RBC 3.22 10^6/uL (4.36-5.78); RDW 14.2 % (11.8-14.1); RDW-SD 45.1 fL; WBC 10.49 10^3/uL (4.4-10.8)
[2024-07-11 07:09] LABS: Anion Gap 5.7 mmol/L (3-11); BUN 21 mg/dL (7-18); CO2 29.3 mmol/L (21.0-32.0); CREATININE 0.8 mg/dL (0.70-1.30); Calcium 8.8 mg/dL (8.5-10.1); Chloride 105 mmol/L (98-107); Estimated GFR 85.12 (mL/min/1.73m2); Glucose 137 mg/dL (74-106); Potassium 3.7 mmol/L (3.5-5.1); Sodium 140 mmol/L (136-145)
[2024-07-11 07:34] VITALS: BP 144/71; PULSE 73; RESP 16; TEMP 36.2; O2SAT 94
[2024-07-11] MEDS: Normal Saline Flush 10 ML SYR IVP ×2 (08:58→19:54)
[2024-07-11] MEDS: hydroCHLOROthiazide 25 MG TAB PO (08:59)
[2024-07-11] MEDS: Apixaban 5 MG TAB PO ×2 (08:59→19:54)
[2024-07-11] MEDS: Vitamin E 400 UNITS CAP PO (08:59)
[2024-07-11] MEDS: Potassium Chloride 20 MEQ TABCR PO (08:59)
[2024-07-11] MEDS: Benazepril 10 MG TAB 20 MG PO (08:59)
[2024-07-11] MEDS: Celecoxib 200 MG CAP PO ×2 (08:59→19:53)
--- NOTE | 2024-07-11 09:47 | PGE_ITS ---
Date of Service Date of service: 07/11/24 Time of Service: 17:10 Assessment and Plan Assessment and plan (1) Intertrochanteric fracture of left femur: Status: Acute Assessment and plan: Merary is an 88-year-old male who is status post left intramedullary nail fixation of an intertrochanteric fracture. He has been reluctant to move much although he had a better day today. X-rays show no signs of complications and I do think he will continue to make progress although will be slow. No signs of complications. Continue with physical therapy, weightbearing as tolerated. Co ntinue with anticoagulation. Subjective Subjective Interval history since last seen: Merary reports to be doing okay. He spent most the day in the chair. He does seem to have some pain currently with guarding. No other acute issues except for some constipation. His family has requested a probiotic. Hill catheter has been removed. Exam Narrative Exam Narrative: Resting in the bed. He is quite guarded laying mostly on the right side. There is notable swelling about the left leg although dressings are clean dry and intact. The thigh is still very compressible. He is quite guarded. As I try to passively move the left hip he resist those motion. However, when he relaxes he seems to tolerate internal and external rotation and flexion of the left hip without significant increase in pain. Objective Last Vital Signs Temp 36.2 C L 07/11/24 07:34 Pulse 73 07/11/24 07:34 Resp 16 07/11/24 07:34 BP 144/71 H 07/11/24 07:34 Pulse Ox 94 07/11/24 07:34 Laboratory Results - last 24 hr 07/11/24 06:23 WBC 10.49 RBC 3.22 L Hgb 9.3 L D Hct 28.1 L MCV 87 MCH 28.9 MCHC 33.1 RDW 14.2 H Plt Count 152 MPV 9.0 Sodium 140 Potassium 3.7 Chloride 105 Carbon Dioxide 29.3 Anion Gap 5.7 BUN 21 H Creatinine 0.8 Est GFR (CKD-EPI 2020) 85.12 Glucose 137 H Calcium 8.8 Objective Narrative Objective Narrative: X-ray of the left femur was performed earlier in the day and shows a comminuted inner troches fracture about the left femur which is still in relative good position in relation of the shaft and the neck with some displacement of the lesser trochanteric fracture fragment. No significant change in alignment. Time Spent with Patient Time Spent with Patient: <25 minutes Time was spent: preparing to see the patient(eg.review tests), obtaining and/or reviewing separately otained hiistory, ordering medications,tests, procedures and counseling the patient
--- NOTE | 2024-07-11 10:41 | IN_ITS ---
PT Notes Visit Reasons: Left Hip Fx Inpatient Physical Therapy Evaluation Date: 07/11/2024 Referring Doctor: Dr. Rodriguez PT Orders: PT CONSULT: Status post Ortho surgery Precautions: Weightbearing as tolerated left lower extremity, Hill catheter, Barbadian speaking(understands basic Colombian) Patient Profile/Admitting Diagnosis: Patient is a 88-year-old male presented to the ED on 07/09/2024 status post fall at home with left hip pain. Patient was found on the floor outside of his bathroom by his daughter who he lives with. X-rays in ED revealed left intertrochanteric fracture. Patient admitted to Med[facility] unit in anticipation of surgical repair. Patient to the OR on 07/10/2024 for IM nailing fixation under general anesthesia by Dr. Rodriguez. Postop uncomplicated. Patient now postop day 1 with PT consult in place. PMHX: Hypokalemia (Acute) Closed left hip fracture (Acute) Femur fracture (Acute) Arthritis (Acute) Bladder stone (Acute 01/27/16) removed / Central retinal vein occlusion (Acute 03/05/17) [facility] (Avastin OD) Chronic atrial fibrillation (Acute 10/04/15) Hyperplasia of prostate (Acute 10/03/12) Language difficulty (Acute) Not [place] speakerMemory impairment (Acute 05/08/13) 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) Normal B12; Ulnar Eczema (Chronic) Bilateral lower legsHTN (hypertension) (Chronic) Dysuria (Acute) Stenosis of rectum and anus (Acute) Gross hematuria (Acute 01/27/16) Depression (Chronic) Fatigue (Acute) Slow heart rate (Acute) Medical History (Updated 07/09/24 @ 07:39 by Noam Babin MD) Chest pain Contracture, left shoulder Left rotator cuff tear arthropathy Atrial fibrillation BPH (benign prostatic hyperplasia) Nasal polyp surgically removed Surgical History Hx of cystoscopy daughter reports prostate was cleared out Hx of appendectomy S/P excision of lipoma left thigh Social History/Home Situation: Patient resides with his daughter in the home with flight of stairs to enter with 1 railing. Patient independent ambulation with a cane, independent ADLs. Patient has assistance for meals, shopping, finances, transportation. Patient is alone 8 hours a day while his daughter works. Equipment Owned/DME: 2 single-point canes; He was fitted for and issued [facility]WW [facility] Subjective: Patient reports he is feeling well but his leg does hurt when he tries to move it Objective: [] General Observation: Elderly male upright in bed Hill catheter to bedside drainage IV access noted. Patient is Barbadian speaking he does understand basic Colombian. His daughter is visiting and provides translation into Barbadian as needed. Patient agreeable to participate in evaluation Mental Status: Alert and oriented, cooperative, pleasant Pain: 3/10 left hip Vital Signs: Monitored by nursing ROM: Right Upper Extremity: WFL Left Upper Extremity: WFL Right Lower Extremity: WFL Left Lower Extremity: Within functional limits except hip abduction 10 degrees and internal rotation to neutral Strength: Right Upper Extremity: 5/5 grossly Left Upper Extremity: Shoulder abduction 3/5, elbow 4/5 hand good Right Lower Extremity: 5/5 Left Lower Extremity: Hip flexion: 2-/5; hip abduction: 2- /5; hip extension: 2+ /5; knee extension: 3 -/5; knee flexion 2+ /5 ankle DF: 3+/5 ; ankle PF: 3+/5 Sensation: Intact to light touch Bed Mobility/Transfers: Supine to sit with head of bed at 30 degrees mod assist Sit to stand mod assist of 2 at FWW Stand to sit mod assist of 2 from FWW Bed to chair mod assist of 2 with increased time and FWW Gait: Ambulate 7 steps with FWW with min assist of 2 and close chair follow for safety patient difficulty advancing left lower extremity step length, excessive weightbearing through bilateral upper extremities patient appears to perform forearm approximately 25% weightbearing through left lower extremity. Balance: [] Static Sitting: Normal Dynamic Sitting: Fair plus Static Standing: Fair minus Dynamic Standing: Poor plus Special Tests: Mobility Limitations Standardized Measure [facility] AM-PAC 6 clicks Basic Mobility Inpatient Short Form: Raw Score: 12 CMS Score: 68.66% Informed Consent/Education: Patient instructed in purpose of PT consult and plan of care. Assessment: Patient is a 88year old male referred to physical therapy services with the diagnosis of left intertrochanteric fracture status post IM nailing fixation on 07/12/2024. Patient presents with clinical signs and symptoms consistent with admitting diagnosis, as demonstrated by the following impairment level findings: 1. Decreased strength to lower extremity major muscle groups 2. Impaired sitting and standing balance 3. Impaired activity tolerance 4. Impaired range of motion in left hip. 5. Pain in left hip impairments are contributing to the following functional limitations: 1. AMPAC score. 2. Decline in bed mobility skills 3. Declining transfer skills 4. Difficulty with ambulation without assistive device and physical assistance 5. Increased risk for falls 6. Difficulty with managing steps alone safely 7. Increased time to complete ADLs/mobility tasks Patient is assessed as a Moderate 99798 complexity based on the following: History: 88-year-old male with past medical history as indicated above Examination: Demonstrates impairments in strength, balance, mobility level with underlying impairments and functional limitations as described above Presentation: Evolving Decision Making: Moderate Goals: Goals X1 week 1. Supervision with bed mobility supine to sit to and from sit 2. Supervision transfers with FWW 3. Supervision ambulating with FWW greater than 50 feet x 2 4. Min assist on 4 steps with 2 rails 5. Supervision with home exercise program for strengthening and range of motion Plan of Care/Treatment Plan: 1-2x/day, 7 days/week x 1 week. Plan of care has been reviewed with the [facility] providing the service under Physical Therapy direction. Initiate Physical Therapy intervention for strengthening, bed mobility, transfers, gait, stairs, balance training, use of assistive device. DISCHARGE RECOMMENDATIONS: [] [] Home with no services [] [] Home with services [specify] [] Home with outpatient PT [] [X] SNF for continued rehabilitation vs HHPT [] [employer] [facility] [] [] SNF versus LTC based on ability to participate and progress [] TREATMENT CODE/TIME: []
[2024-07-11 11:29] VITALS: BP 106/60; PULSE 68; RESP 16; TEMP 36.2; O2SAT 98
--- NOTE | 2024-07-11 14:07 | PTTR_ITS ---
Date of service: 07/11/24 Time of Service: 01:50 PT Notes Visit Reasons: Left Hip Fx Inpatient Physical Therapy Treatment Note [facility] Date: 07/11/2024 PRECAUTIONS: Weight bearing as tolerated left lower extremity, Italian speaking(understands basic Kittitian) SUBJECTIVE: Indicated it was very painful to walk bed to chair. Advised to place more weight through UEs. Indicated pain level to be a 4/10 post ambulation, once back in bed. OBJECTIVE: ? PAIN: Significant pain in left hip with ambulation. Pain decreased to 4/10 once comfortable in bed. Therapeutic Activities ([id number]): Direct one-on-one instruction in dynamic activities to improve functional performance. ? BED MOBILITY/TRANSFERS? Rolling L/R: Mod assist rolling to right? Sit-supine: Mod assist of 2 ? Sit-stand: Mod assist of 2? Stand-sit: Mod assist of 2? Chair-bed: FWW with Mod assist of 2 Provided skilled cues and instruction on performance and technique throughout. GAIT? Assistive Device: FWW ? Weight bearing: WBAT on left Assist: Mod assist of 2 ? Distance:?7 steps? Deviation: Slow, short steps. Very fearful of falling. Verbal cueing to breath and take weight through arms. ? ASSESSMENT:? Requires significant verbal cueing with movement. Did well advancing left LE when walking today. PLAN: Continue with mobility training. Pre medication prior to treatment advised. TREATMENT CODE/TIME: 18747 x 1, 1:45 to 2:05 (20 minutes) DISCHARGE RECOMMENDATION: Patient would benefit from continued skill rehab or SNF
[2024-07-11] MEDS: traMADol 50 MG TAB PO (14:08)
--- NOTE | 2024-07-11 15:03 | CHAPLAIN ---
Merary was up in the chair, visiting with a family member (daughter or granddaughter) when I stopped in. I explained my role and offered support and asked if I could get him anything. His family member interpreted for him and he thanked me for visiting.
[2024-07-11 15:32] VITALS: BP 158/68; PULSE 82; RESP 16; TEMP 36.3; O2SAT 97
[2024-07-11] MEDS: Methocarbamol 500 MG TAB PO (16:53)
--- NOTE | 2024-07-11 17:44 | W.PM.PROGNOT ---
Date of Service Date of service: 07/11/24 Time of Service: 17:44 Assessment and Plan Assessment and plan (1) Closed left hip fracture: Status: Acute Assessment and plan: -closed left hip fracture as seen on imaging in ED -POD #1; will work with PT, appreciate recs (2) Chronic atrial fibrillation: Status: Acute Assessment and plan: -rate controlled, restarted home eliquis post-op (3) HTN (hypertension): Status: Chronic Assessment and plan: -continue home benazepril/hctz (4) Hypokalemia: Status: Acute Assessment and plan: -K 3.0 in ED, given 40mEq PO -continue home 20mEq PO daily -f/u AM BMP Subjective Subjective Interval history since last seen: Patient states that he is doing well today and is looking forward to working with physical therapy on his mobility. Exam Narrative Exam Narrative: Elderly gentleman laying in bed in mild distress secondary to pain, ANO x 4, heart regular rhythm, lungs clear to auscultation bilaterally, abdomen soft, mildly distended, nontender Objective Last Vital Signs Temp 97.3 F L 07/11/24 15:32 Pulse 82 07/11/24 15:32 Resp 16 07/11/24 15:32 BP 158/68 H 07/11/24 15:32 Pulse Ox 97 07/11/24 15:32 Laboratory Results - last 24 hr 07/11/24 06:23 WBC 10.49 RBC 3.22 L Hgb 9.3 L D Hct 28.1 L MCV 87 MCH 28.9 MCHC 33.1 RDW 14.2 H Plt Count 152 MPV 9.0 Sodium 140 Potassium 3.7 Chloride 105 Carbon Dioxide 29.3 Anion Gap 5.7 BUN 21 H Creatinine 0.8 Est GFR (CKD-EPI 2020) 85.12 Glucose 137 H Calcium 8.8 Time Spent with Patient Time Spent with Patient: >50 minutes Time was spent: preparing to see the patient(eg.review tests), obtaining and/or reviewing separately otained hiistory, ordering medications,tests, procedures, referring, communicating with other health rn managed care, indepentently interpreting results, counseling the patient and care coordination
--- NOTE | 2024-07-11 18:17 | PDOC.CMPRO ---
Date of service: 07/11/24 Time of Service: 18:17 Care Management Progress Note Progress Note Text Progress Note Text: Merary was sitting up in bed when CM met with him; his granddaughter was visiting. He stated that he is doing ok today, and not having much pain. CM discussed discharge planning including SNF vs home with HH, which were PT's recommendations from their evaluation this morning. Merary conversed with CM in japanese, but struggled with some words, which his granddaughter translated for him. He stated that he is agreeable to going to rehab, if that is the recommendation. CM sent referrals to local facilities to determine if a bed is available; CM discussed this with his daughter, Zahra, who stated that their preference is the [facility]. CM informed the family that the rehab facilities will likely respond on Sunday, and that if he is medically cleared at that time, and a bed is available, he will likely be discharged to the facility on Sunday. If he is doing well enough to return home, it is his preference and the family's preference to take him home with new HH services. He may require a lift assist into the home, as there is a full flight of stairs to enter the home. CM will continue to follow. Discharge Potential Discharge Needs: Surgical F/U Appt Anticipated Barriers to Discharge: Bed availability Patient/Family Education Needs: Review discharge instructions, discuss Ask Me Three Transportation: Private vehicle Plan: Anticipate Merary will go to SNF vs home with new HH PT, OT. Referrals are pending at the [facility], [facility], [facility], [facility], and [facility]. He will transport via private vehicle by family, if able. He will follow up with Ortho and his discharge plan of care. CM will continue to follow. Social Determinants of Health Screening Social Determinants of Health last assessed: 07/11/24 Will the Patient Participate in the Screening?: Yes Do you worry about having a steady place to live?: no (lives with daughter, Zahra) Problems where you live: no known problems In the past 12 months, have you had to go without electric, gas, oil or water in your home?: no Have you or anyone in your house had to go without enough food to eat?: no Has lack of transportation kept you from medical appointments or from doing things needed for daily living?: no Has anyone in your life made you feel unsafe or unsupported?: no How hard is it for you to pay for the very basics like food, housing, medical care, and heating? Would you say it is:: Not hard at all Do you want help finding or keeping work or a job?: I do not need or want help If for any reason you need help with day-to-day activities such as bathing, preparing meals, shopping, managing finances, etc., do you get the help you need?: I need a lot more help How often do you feel lonely or isolated from those around you?: Never Do you speak a language other than Singaporean at home?: No Health Related Social Needs Health related social needs: problems with daily activities (Z73.9)
[2024-07-11 19:17] VITALS: BP 143/71; PULSE 74; RESP 18; TEMP 36.9; O2SAT 96
[2024-07-11] MEDS: Atorvastatin 40 MG TAB PO (19:53)
[2024-07-11] MEDS: Latanoprost 0.005% 2.5 ML BTL OP (20:09)
[2024-07-12] MEDS: Acetaminophen 325 MG TAB PO ×3 (01:05→19:55)
[2024-07-12] MEDS: Docusate Sodium 100 MG CAP PO ×2 (01:05→08:42)
[2024-07-12 03:11] VITALS: BP 151/93; PULSE 65; RESP 16; TEMP 36.3; O2SAT 96
[2024-07-12 07:30] VITALS: BP 122/61; PULSE 73; RESP 15; TEMP 36.3; O2SAT 100
[2024-07-12] MEDS: Potassium Chloride 20 MEQ TABCR PO (08:42)
[2024-07-12] MEDS: hydroCHLOROthiazide 25 MG TAB PO (08:42)
[2024-07-12] MEDS: Apixaban 5 MG TAB PO ×2 (08:42→19:56)
[2024-07-12] MEDS: Benazepril 10 MG TAB 20 MG PO (08:42)
[2024-07-12] MEDS: Celecoxib 200 MG CAP PO ×2 (08:42→19:56)
[2024-07-12] MEDS: Vitamin E 400 UNITS CAP PO (08:42)
[2024-07-12] MEDS: Normal Saline Flush 10 ML SYR IVP ×2 (08:43→19:57)
--- NOTE | 2024-07-12 10:49 | PT.INTREAT ---
PT Notes Visit Reasons: Left Hip Fx SUBJECTIVE: Reports pain with left LE ROM OBJECTIVE:? WBTT left LE. Issued leg product consultant and HEP sheet Treatment: Therapeutic procedures (15045y[1]): Instruction in therapeutic exercises to develop strength and endurance, range of motion and flexibility per HEP sheet. leg product consultant for left LE, PT assisting for SLR on left with leg product consultant ? Therapeutic Activities - (76449 x[2]): instruction in dynamic activities with one on one patient contact by the provider to improve functional performance?as follows: supine to sit with mod assist x 1 with leg product consultant sit to standing mod x 1 2x stand to sit min x 1 2x Amb 20 feet with rolling walker with cuing for sequencing and assist to advance left LE last 4 steps secondary to fatigue WBTT left LE with cga only. Amb 8 feet with rolling walker and cuing for sequencing with assist to advance left LE 3 times with cga. Assessment: Patient is an 88 year old male referred to physical therapy services for left intertrochanteric fracture status post IM nailing fixation on 07/12/2024. Improved ability to move his left LE, weight bear and walk Plan: Continue daily PT over the weekend. Continue to determine d/c plan: d/c to home with HHPT vs STR Billing Charges: Treatment Units Time Duration Manual Therapy (48130) Hands-on techniques to modulate pain increase joint range of motion reduce or eliminate soft tissue swelling, inflammation, or restriction facilitate relaxation and improve contractile and non-contractile tissue extensibility Therapeutic Procedures (60910) Instruction in therapeutic exercises to develop strength and endurance, range of motion and flexibility. HEP instruction and review: Provided skilled instruction in proper exercise performance: Provided skilled manual cues to facilitate proper muscle recruitment and/or movement?pattern: 1 20 Neurological Re-Education (60022) to improve balance, coordination, kinesthetic and proprioceptive sensations. Ultrasound (53816) to promote healing Gait Training (88079) Therapeutic Activity (83278) instruction in dynamic activities with one on one patient contact by the provider to improve functional performance as follows: 1 28 Self Care Training (72531) Time Coded Treatment Minutes: 48 Total Treatment Time: 48
--- NOTE | 2024-07-12 11:36 | W.PM.PROGNOT ---
Date of Service Date of service: 07/12/24 Time of Service: 10:25 Assessment and Plan Assessment and plan (1) Intertrochanteric fracture of left femur: Status: Acute Assessment and plan: Merary is an 88-year-old male who is postop day #2 status post intervention nail fixation of the left inner troches fracture. He is doing as expected. He is 88 and his progress is definitely what I would expect to occur. He is making slow and steady gains. He should be able to discharge home at some point although may need a [facility] for continued [facility]. However I encouraged his family that he seems to making good progress. Merary seems to be in good spirits today. We will continue to watch his bowel progress and recommend continued medication treatment with slow progression as that usually will occur on its own around 3 to 4 days postop. There is been some slight decrease in his hemoglobin however this is to be expected. There is a very normal drop for a hip fracture, particular with the blood thinners on board. He is vital signs remained stable even with ambulation. I am not concerned about this although she continue to follow it. It usually hits its postoperative lucia today or tomorrow. Continue with physical therapy, weightbearing as tolerated. Continue anticoagulation. Follow-up me in the office in 4 weeks. Subjective Subjective Interval history since last seen: Merary is an 88-year-old male who is doing better from his hip fracture on the left side. He was able to ambulate with physical therapy today. He has made slow and steady progress. The family's been reluctant to utilize any narcotic pain medication and he seems to be making some progress on his own. Still no bowel movement. He is passing flatus. No concerns for chest pain or shortness of breath. He is voiding. Exam Narrative Exam Narrative: Brief evaluation was done as he was working with physical therapy. The dressing shows no sign of drainage or discharge. The thigh is swollen with some resolving ecchymosis. He is observed ambulating across the room and then sitting down to a chair. He has active knee extension, ankle dorsiflexion, ankle plantarflexion. Objective Last Vital Signs Temp 36.3 C L 07/12/24 07:30 Pulse 73 07/12/24 07:30 Resp 15 07/12/24 07:30 BP 122/61 02/22/25 07:30 Pulse Ox 100 07/12/24 07:30 Time Spent with Patient Time Spent with Patient: 25-34 minutes Time was spent: preparing to see the patient(eg.review tests), obtaining and/or reviewing separately otained hiistory and counseling the patient
[2024-07-12 15:16] VITALS: BP 159/93; PULSE 71; RESP 17; TEMP 36.8; O2SAT 98
--- NOTE | 2024-07-12 17:09 | W.PM.PROGNOT ---
Date of Service Date of service: 07/12/24 Time of Service: 17:09 Assessment and Plan Assessment and plan (1) Closed left hip fracture: Status: Acute Assessment and plan: -closed left hip fracture as seen on imaging in ED -POD #2; will work with PT, appreciate recs (2) Chronic atrial fibrillation: Status: Acute Assessment and plan: -rate controlled, restarted home eliquis post-op (3) HTN (hypertension): Status: Chronic Assessment and plan: -continue home benazepril/hctz (4) Hypokalemia: Status: Acute Assessment and plan: -K 3.0 in ED, given 40mEq PO -continue home 20mEq PO daily -f/u AM BMP Subjective Subjective Interval history since last seen: Patient states that he is doing well today and is looking forward to working with physical therapy on his mobility. Exam Narrative Exam Narrative: Elderly gentleman laying in bed in mild distress secondary to pain, ANO x 4, heart regular rhythm, lungs clear to auscultation bilaterally, abdomen soft, mildly distended, nontender Objective Last Vital Signs Temp 98.2 F 07/12/24 15:16 Pulse 71 07/12/24 15:16 Resp 17 07/12/24 15:16 BP 159/93 H 07/12/24 15:16 Pulse Ox 98 07/12/24 15:16 Time Spent with Patient Time Spent with Patient: >50 minutes Time was spent: preparing to see the patient(eg.review tests), obtaining and/or reviewing separately otained hiistory, ordering medications,tests, procedures, referring, communicating with other health infant caregiver, indepentently interpreting results, counseling the patient and care coordination
[2024-07-12 19:21] VITALS: BP 158/87; PULSE 64; RESP 18; TEMP 36.9; O2SAT 96
[2024-07-12] MEDS: Atorvastatin 40 MG TAB PO (19:56)
[2024-07-12] MEDS: Latanoprost 0.005% 2.5 ML BTL OP (20:08)
[2024-07-13] MEDS: Methocarbamol 500 MG TAB PO ×3 (00:49→21:41)
--- NOTE | 2024-07-13 07:02 | NUR.NOTE ---
Nursing Note: Patient noted to be trying to reposition in bed, however due to pain he was unable to do so, pt educated on importance of pain management to promote healing, mobility and prevent seconday infections like pneumonia. Family at bedside states absolutely no narcotics. Family educated on importance of pain management again and states that Tylenol and robaxin is okay. LAURA TORRES
[2024-07-13 07:20] VITALS: BP 150/79; PULSE 71; RESP 20; TEMP 36.8; O2SAT 93
[2024-07-13] MEDS: Polyethylene Glycol 3350 17 GM PACKET PO (07:33)
[2024-07-13] MEDS: Vitamin E 400 UNITS CAP PO (07:33)
[2024-07-13] MEDS: hydroCHLOROthiazide 25 MG TAB PO (07:33)
[2024-07-13] MEDS: Potassium Chloride 20 MEQ TABCR PO (07:33)
[2024-07-13] MEDS: Benazepril 10 MG TAB 20 MG PO (07:33)
[2024-07-13] MEDS: Celecoxib 200 MG CAP PO ×2 (07:34→19:30)
[2024-07-13] MEDS: Normal Saline Flush 10 ML SYR IVP ×2 (07:34→19:30)
[2024-07-13] MEDS: Apixaban 5 MG TAB PO ×2 (07:34→19:30)
[2024-07-13] MEDS: Acetaminophen 325 MG TAB PO ×2 (07:34→21:40)
[2024-07-13] MEDS: Docusate Sodium 100 MG CAP PO ×2 (07:34→21:41)
--- NOTE | 2024-07-13 09:25 | W.PM.PROGNOT ---
Date of Service Date of service: 07/13/24 Time of Service: 09:25 Assessment and Plan Assessment and plan (1) Closed left hip fracture: Status: Acute Assessment and plan: -closed left hip fracture as seen on imaging in ED -POD #3; will work with PT, plan for DC to [facility] (2) Chronic atrial fibrillation: Status: Acute Assessment and plan: -rate controlled, restarted home eliquis post-op (3) HTN (hypertension): Status: Chronic Assessment and plan: -continue home benazepril/hctz (4) Hypokalemia: Status: Acute Assessment and plan: -K 3.0 in ED, given 40mEq PO -continue home 20mEq PO daily -f/u AM BMP Subjective Subjective Interval history since last seen: Patient states that he is doing well today and is looking forward to working with physical therapy on his mobility and possible DC to [facility] early this week. Exam Narrative Exam Narrative: Elderly gentleman laying in bed in mild distress secondary to pain, ANO x 4, heart regular rhythm, lungs clear to auscultation bilaterally, abdomen soft, mildly distended, nontender Objective Last Vital Signs Temp 98.2 F 07/13/24 07:20 Pulse 71 07/13/24 07:20 Resp 20 07/13/24 07:20 BP 150/79 H 07/13/24 07:20 Pulse Ox 93 07/13/24 07:20 Time Spent with Patient Time Spent with Patient: >50 minutes Time was spent: preparing to see the patient(eg.review tests), obtaining and/or reviewing separately otained hiistory, ordering medications,tests, procedures, referring, communicating with other health home health aide caregiver, indepentently interpreting results, counseling the patient and care coordination
--- NOTE | 2024-07-13 10:51 | PT.INTREAT ---
PT Notes Visit Reasons: Left Hip Fx SUBJECTIVE: Daughter reports patient was up standing in the room on his own in the middle of the night and also walked to the bathroom by himself. OBJECTIVE:? WBTT left LE. Treatment: Able to perform own pericare in sitting. Therapeutic procedures (80893e[1]): Instruction in therapeutic exercises to develop strength and endurance, range of motion and flexibility per HEP sheet. leg administration clerk for left LE, arom right: quad set, glut set, heel slides, hip abd/add, SLR x 10 ? Therapeutic Activities - (46550 x[2]): instruction in dynamic activities with one on one patient contact by the provider to improve functional performance?as follows: sit to/from standing 2x with cga only with cuing for hand placement Amb 20 feet 2x with rolling walker with cuing for sequencing Assessment: Patient is an 88 year old male referred to physical therapy services for left intertrochanteric fracture status post IM nailing fixation on 07/12/2024. Improved ability to Mobilize Plan: Continue PT 2x/day during the week. Continue to determine d/c plan: d/c to home with HHPT vs STR Billing Charges: Treatment Units Time Duration Manual Therapy (54503) Hands-on techniques to modulate pain increase joint range of motion reduce or eliminate soft tissue swelling, inflammation, or restriction facilitate relaxation and improve contractile and non-contractile tissue extensibility Therapeutic Procedures (59933) Instruction in therapeutic exercises to develop strength and endurance, range of motion and flexibility. HEP instruction and review: Provided skilled instruction in proper exercise performance: Provided skilled manual cues to facilitate proper muscle recruitment and/or movement?pattern: 1 9 Neurological Re-Education (36558) to improve balance, coordination, kinesthetic and proprioceptive sensations. Ultrasound (79445) to promote healing Gait Training (28538) Therapeutic Activity (35798) instruction in dynamic activities with one on one patient contact by the provider to improve functional performance as follows: 1 17 Self Care Training (94465) Time Coded Treatment Minutes: 26 Total Treatment Time: 26
[2024-07-13 14:52] VITALS: BP 166/73; PULSE 76; RESP 20; TEMP 37; O2SAT 98
[2024-07-13 15:19] VITALS: BP 156/74
[2024-07-13] MEDS: Atorvastatin 40 MG TAB PO (19:30)
[2024-07-13] MEDS: Latanoprost 0.005% 2.5 ML BTL OP (19:31)
[2024-07-13 20:15] VITALS: BP 170/90; PULSE 75; RESP 18; TEMP 36.5; O2SAT 97
[2024-07-14] MEDS: Acetaminophen 325 MG TAB PO (02:37)
[2024-07-14] MEDS: Methocarbamol 500 MG TAB PO (02:38)
[2024-07-14] MEDS: traMADol 50 MG TAB PO (04:11)
[2024-07-14 07:23] VITALS: BP 165/66; PULSE 69; RESP 15; TEMP 36.4; O2SAT 96
[2024-07-14] MEDS: Apixaban 5 MG TAB PO (07:57)
[2024-07-14] MEDS: Benazepril 10 MG TAB 20 MG PO (07:57)
[2024-07-14] MEDS: Normal Saline Flush 10 ML SYR IVP (07:57)
[2024-07-14] MEDS: Celecoxib 200 MG CAP PO (07:57)
[2024-07-14] MEDS: hydroCHLOROthiazide 25 MG TAB PO (07:57)
[2024-07-14] MEDS: Potassium Chloride 20 MEQ TABCR PO (07:57)
[2024-07-14] MEDS: Vitamin E 400 UNITS CAP PO (07:57)
--- NOTE | 2024-07-14 13:00 | PTTR_ITS ---
PT Notes Visit Reasons: Left Hip Fx 07/14/2024 SUBJECTIVE: Pt's dtr, reports she stepped out of the room and then reentered to find her father attempting to reach for his walker while standing. Pt reports he is feeling better but still has pain in the outer part of his hip. (pm) pt 's dtr reports she is taking him home today She requested a review of ADL adaptive equipment OBJECTIVE:? WBAT left LE. Treatment: Therapeutic procedures (07253w[1]): Instruction in therapeutic exercises to develop strength and endurance, range of motion and flexibility per HEP sheet. leg braiding machine operator for left LE, AROM right: quad set, glut set, heel slides, hip abd/add, SLR x 10, LAQ and marching seated added ? Therapeutic Activities - (88595 x[2]): instruction in dynamic activities with one on one patient contact by the provider to improve functional performance?as follows: sit to/from standing 2x with cga only with cuing for hand placement Facilitated safe and correct performance of level surface ambulation covering a distance of 65 feet x 2using use front wheeled walker with contact-guard assist and wheelchair follow for safety. reported increas in pain from 3-4 to 4.5/10 . Denied headache, chest pain, and lightheadedness throughout activity. Minimal verbal cueing provided for AD management, directional changes, and posture.Amb Initially pt demonstrates antalgic pattern for first 4-5 steps then improved fluidity of movement (pm)Self Care Management 81576 Facilitated instruction in sock aide, long handled shoe horn, mica washer gluer, dressing stick. pt able to utilize sock aide, mica washer gluer and long handed shoe horn with mod A after initial instruction. He is independent with use of leg braiding machine operator Assessment: Patient is an 88 year old male referred to physical therapy services for left intertrochanteric fracture status post IM nailing fixation on 07/12/2024. He demonstrates increased tolerance to ambulation and able to perform transfers as well as seated therex with minimal reports of pain 3-4.5/10 per patient. (pm) Pt would benefit from OT assessment at home for self care and showering assessment. He requires repetition for carryover of use of Adaptive self care equipment. Plan: Continue PT 2x/day during the week. Continue to determine d/c plan: d/c to home with HHPT vs STR Billing Charges: am session 45997, 81819 [id number] pm session [id number] Treatment Units Time Duration Manual Therapy (61562) Hands-on techniques to modulate pain increase joint range of motion reduce or eliminate soft tissue swelling, inflammation, or restriction facilitate relaxation and improve contractile and non-contractile tissue extensibility Therapeutic Procedures (85858)(AM) Instruction in therapeutic exercises to develop strength and endurance, range of motion and flexibility. HEP instruction and review: Provided skilled instruction in proper exercise performance: Provided skilled manual cues to facilitate proper muscle recruitment and/or movement?pattern: 1 13 Neurological Re-Education (49925) to improve balance, coordination, kinesthetic and proprioceptive sensations. Ultrasound (61225) to promote healing Gait Training (81413) Therapeutic Activity (AM) (41322) instruction in dynamic activitie s with one on one patient contact by the provider to improve functional performance as follows: 2 27 Self Care Training (85809) PM) 14 Time Coded Treatment Minutes: 54 Total Treatment Time: 54
--- NOTE | 2024-07-14 15:04 | DSE_ITS ---
Date of service: 07/14/24 Time of Service: 15:04 DS: Diagnosis Discharge Diagnosis (1) Closed left hip fracture: Status: Acute (2) Chronic atrial fibrillation: Status: Acute (3) HTN (hypertension): Status: Chronic (4) Hypokalemia: Status: Acute Discharge Plan Disposition Patient Disposition: Home Condition: Stable Discharge Details Reason For Visit: Left Hip Fx Admit Date/Time: 07/09/24 07:37 Admit Provider: Noam Babin Attending Provider: Noam Babin Primary Care Provider: Juwan Mark Hospital Course Hospital Course: Per H+P: 88yo male with PMH chronic a-fib on eliquis, HTN, HLD, hypokalemia who presents to the ED after falling earlier in the morning and experiencing ongoing left hip pain. At around 3 AM earlier this morning patient's daughter heard a thud and found patient on the floor. He was able to state that he did not strike his head or losing consciousness. Patient's daughter was unable to get him up off of the floor due to left hip pain which is improved after 50 mics of fentanyl via EMS. He denies any headache, neck pain, back pain, nausea vomiting diarrhea. In the emergency department the patient was noted as having normal vital signs, normal CBC and CMP though was noted as having a shortened and externally rotated left lower extremity which was confirmed to be secondary to a left intertrochanteric fracture on x-ray. Orthopedic surgery stated they would see the patient later and would likely take him to the OR on 07/11/2024. At which time emergency room paged hospitalist for admission for patient with a left hip fracture. Patient was admitted after a fall with a L intertrochanteric femur fx. Ortho was consulted and patient went for L IMF with Dr. Rodriguez on 07/10 with no complication. Patient is on Eliquis for rate-controlled AF. This was held perioperatively and restarted after cleared by orthopedics. Pain control provided with tramadol. While this was effective at 50mg, family felt that it was making the patient overly sedated. However, on discharge they are requesting to continue this at a lower dose. Worked with PT/OT. Recommendations were for SNF. However, after multiple conversations with CM and family, they are electing to take him home with PT/OT/HHN. Plan to discharge today. IF any issues, can return to the ER for further eval. Follow with ortho in their office in 4 weeks. Home Meds and New Rx's Prescriptions: New tramadol 25 mg tablet 25 mg PO Q6H PRN (Reason: pain) Qty: 20 0RF Continued triamcinolone acetonide 0.1 % cream 1 applic TP TID PRN Qty: 80 2RF albuterol sulfate 90 mcg/actuation HFA aerosol inhaler 2 puff inhalation Q6H PRN (Reason: shortness of breath or wheezing) Qty: 8.5 0RF cholecalciferol (vitamin D3) [Vitamin D3] 25 mcg (1,000 unit) capsule 2,000 unit PO DAILY latanoprost 0.005 % drops 1 drp ophthalmic (eye) QPM Qty: 7.5 3RF Rx Instructions: Both eyes benazepril-hydrochlorothiazide 20-25 mg tablet 1 tab PO DAILY Qty: 90 3RF Eliquis 5 mg tablet 5 mg PO BID 90 Days Qty: 180 3RF potassium chloride 20 mEq tablet,ER particles/crystals 20 meq PO DAILY Qty: 90 3RF atorvastatin 40 mg tablet See Rx Instructions .ROUTE .COMPLEX Qty: 90 4RF Dose Instruction: TAKE ONE TABLET BY MOUTH AT BEDTIME Rx Instructions: TAKE ONE TABLET BY MOUTH AT BEDTIME vitamin E (dl, acetate) 400 UNIT capsule 1 cap PO DAILY Discharge Instructions Activity:: Activity as Tolerated Equipment/Supplies:: No Equipment Needed Diet:: Low Sodium Discharge Orders Discharge Orders: Discharge Order (Routine); Ordered 07/14/24 Ordered By: Chaparro Peña DS: Summary Time Spent with Patient providing and/or coordinating discharge services: Greater than 30 minutes Status at Discharge Functional status at discharge: uses cane/walker Overall status at discharge: patient is not back to baseline Mental Status: other Speech and Movement: other Mood: other Affect: other Quality:SDOH Health Related Social Needs: Health related social needs problems with daily activi ties (Z73.9) Exam Narrative Exam Narrative: patient asleep in chair with family present when i arrived, exam attenuated for this reason Const General: comfortable and no acute distress Resp Auscultation: clear to auscultation bilaterally Cardio Rate: regular rate Rhythm: abnormal rhythm GI Inspection: normal to inspection Palpation: soft Auscultation: normal bowel sounds Psych Mental Status: other Speech and Movement: other Mood: other Affect: other DS: Data Vitals/I&O Vitals and I&O: Vital Signs Temperature 36.4 C L 07/14/24 07:23 Temperature Source Temporal Artery Scan 07/14/24 07:23 Pulse 69 07/14/24 07:23 Pulse Rhythm Irregular 07/09/24 11:59 Pulse 77 07/10/24 14:11 Respiratory Rate 15 07/14/24 07:23 Respiratory Effort Normal 07/09/24 11:59 Respiratory Depth Normal 07/09/24 11:59 Respiratory Pattern Normal 07/09/24 11:59 Blood Pressure 165/66 H 07/14/24 07:23 Blood Pressure Mean 117 07/10/24 14:10 Blood Pressure Position Sitting 07/09/24 04:05 Pulse Oximetry 96 07/14/24 07:23 Respiratory End-tidal CO2 17 07/10/24 14:11 Oxygen Delivery Method Room Air 07/14/24 07:23 Oxygen Flow Rate 0 07/14/24 07:23 Pain Level 5 07/14/24 04:11 Comment bp relayed to RN 07/11/24 07:34 Intake & Output 07/13/24 07/14/24 07/14/24 23:59 11:59 23:59 Intake Total 540 / 540 100 / 100 Output Total 150 / 970 Balance 390 / -430 100 / 100 Intake: IV 0 / 0 Oral 540 / 540 100 / 100 Output: Urine 150 / 970 Other: Urine Color Yellow Yellow Urine Appearance Clear Clear Urine Odor Normal Normal Comment not measured. voided in toilet pt has been voiding independently, no issues reported PFSH All Active Problems (Updated 07/14/24 @ 15:04 by Chaparro Peña DO) Intertrochanteric fracture of left femur (Acute) Hypokalemia (Acute) Closed left hip fracture (Acute) Femur fracture (Acute) Arthritis (Acute) Bladder stone (Acute 01/27/16) removed / Central retinal vein occlusion (Acute 03/05/17) [facility] [place] (Avastin OD) Chronic atrial fibrillation (Acute 10/04/15) Hyperplasia of prostate (Acute 10/03/12) Language difficulty (Acute) Not morongo speaker Memory impairment (Acute 05/08/13) 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) Normal B12; Ulnar Eczema (Chronic) Bilateral lower legs HTN (hypertension) (Chronic) Dysuria (Acute) Stenosis of rectum and anus (Acute) Gross hematuria (Acute 01/27/16) Depression (Chronic) Fatigue (Acute) Slow heart rate (Acute) Medical History Chest pain Contracture, 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 Sister , 73 No problems noted. Sister , 80 Stroke Diabetes Daughter No problems noted. Daughter No problems noted. Social History Smoking/Tobacco Use Status: Former Tobacco Use tobacco type: cigarettes Quit Date: 05/21/15 Second Hand Exposure: Yes Smoking risk assessment performed?: Yes Alcohol Intake: current Alcohol Intake frequency: holidays/special occasions only Alcohol type: beer, wine and hard liquor Drug use: Never Substance use type: does not use Details: alcohol: t-1, 1/2 glass of wine Caregiver/Support person: No Housing: house Communication Needs: Language Barriers Do you need help understanding health information?: Always Pets and animals: No Sexually active: No Do you think of yourself as: straight/heterosexual What is your relationship status?: How often do you talk on the phone with friends or family?: three or more times per week How often do you get together with friends or relatives?: once per week Do you belong to any clubs or organized social groups?: no Panel score (0-1 are the most socially isolated patients): 1 What type of physical activity do you participate in: walking Duration: 15-30 minutes/day Frequency: 3-4 times per week Janae/Spiritism: Voodoo Seatbelt use: always Drive intox or ride w/intox ross carrier driver: No Additional Social history: Unable to assess privatley, daughter in room Time Spent with Patient Time Spent with Patient: <45 minutes Time was spent: preparing to see the patient(eg.review tests), ordering medications,tests, procedures, indepentently interpreting results and care coordination
--- NOTE | 2024-07-14 15:53 | CMDISCH_ITS ---
Date of service: 07/14/24 Time of Service: 15:53 LACE Index Scoring Tool Questions: Length of Stay (in days): 4 - 6 Was the patient admitted via the E.D.?: Yes E.D. Visits: 0 Answers: Total Score: 7 Risk of Readmission: Low Risk Care Management Discharge Plan Reason for Hospitalization: left hip fracture Discharge Plan: Merary will return home today with new orders for HH PT, OT. His daughter drove him home, and CM coordinated a lift assist through [email or web address]. He will follow up with Ortho, his PCP and his discharge plan of care. CM communicated with his community engagement representative, Evelyn, from [facility], as well as La, the customer care coordinator at [facility] regarding his discharge home. CM discussed the option of going to SNF from the community utilizing his acute 3 night stay (within 30 days) with his daughter, if needed, although he is doing very well with PT today. Merary is happy to be going home today. Patient/Family Education Needs: Review discharge instructions and limitations, discussion of self care needs including ask me three. Services Needed at Discharge: Home Health Care Services (new HH PT, OT) and Transportation (lift assist, [employer]) SDOH Health Related Social Needs: Health related social needs problems with daily activi ties (Z73.9)
--- NOTE | 2024-07-14 16:20 | PDOC.HHF2F_ITS ---
Home Health Referral Home Health Orders Clinical synopsis of why skilled professionals are needed: Per H+P: 88yo male with PMH chronic a-fib on eliquis, HTN, HLD, hypokalemia who presents to the ED after falling earlier in the morning and experiencing ongoing left hip pain. At around 3 AM earlier this morning patient's daughter heard a thud and found patient on the floor. He was able to state that he did not strike his head or losing consciousness. Patient's daughter was unable to get him up off of the f gale due to left hip pain which is improved after 50 mics of fentanyl via EMS. He denies any headache, neck pain, back pain, nausea vomiting diarrhea. In the emergency department the patient was noted as having normal vital signs, normal CBC and CMP though was noted as having a shortened and externally rotated left lower extremity which was confirmed to be secondary to a left intertrochanteric fracture on x-ray. Orthopedic surgery stated they would see the patient later and would likely take him to the OR on 07/11/2024. At which time emergency room paged hospitalist for admission for patient with a left hip fracture. Patient was admitted after a fall with a L intertrochanteric femur fx. Ortho was consulted and patient went for L IMF with Dr. Rodriguez on 07/10 with no complication. Patient is on Eliquis for rate-controlled AF. This was held perioperatively and restarted after cleared by orthopedics. Pain control provided with tramadol. While this was effective at 50mg, family felt that it was making the patient overly sedated. However, on discharge they are requesting to continue this at a lower dose. Worked with PT/OT. Recommendations were for SNF. However, after multiple conversations with CM and family, they are electing to take him home with PT/OT/HHN. Plan to discharge today. IF any issues, can return to the ER for further eval. Follow with ortho in their office in 4 weeks. Medical diagnosis necessitation home health referral: L femur fracture Physical Therapist: Check all that apply Increase strength & endurance for safe mobility at home: Ordered Occupational Therapist: Evaluate and treat for patient unable to perform ADL/IADL/self-care: Ordered Home Bound Status Assistance of another person (Describe assistance and medical necessity): needs help to ambulate Encounter Date and Reason: I certify that a FTF encounter for this patient was performed on July 14, 2024 and that such encounter was related to the primary reason the patient requires home health services. The encounter was conducted in the following manner: * By me as the certifying physician, FEATHEREDGER AND REDUCER MACHINE, PA or * By an inpatient physician, FEATHEREDGER AND REDUCER MACHINE or PA during an inpatient stay who communicated findings to me, Certification And Authentication I certify that I composed the above information based on my clinical judgment relating to this patient's medical condition and, if applicable, clinical findings communicated to me by the NPP or inpatient physician who performed the FTF encounter. Name of Provider that will be monitoring home health services: Juwan Mark
== END 2024-07-14 16:10 | disposition home health service (06) | DRG 481 ==
LOC: ER 10:26 → MS 11:45
PROVIDERS: Student in an Organized Health Care Education/Training Program; Admitting Provider Family Medicine; Emergency Provider Student in an Organized Health Care Education/Training Program; PCP Nurse Practitioner Family; Responsible Provider Hospitalist; Visit Provider Family Medicine
PROC: 0QS736Z Reposition Left Upper Femur with Intramedullary Internal Fixation Device, Percutaneous Approach (ICD-10-PCS; CPT 27245; principal; 2024-07-10 11:45)
DX: I48.20 Chronic atrial fibrillation, unspecified; I10 Essential (primary) hypertension; E87.6 Hypokalemia; S72.142A Displaced intertrochanteric fracture of left femur, initial encounter for closed fracture; R00.1 Bradycardia, unspecified; F32.A Depression, unspecified; R41.3 Other amnesia; Z79.01 Long term (current) use of anticoagulants; E78.5 Hyperlipidemia, unspecified; W19.XXXA Unspecified fall, initial encounter; N40.0 Benign prostatic hyperplasia without lower urinary tract symptoms; G58.8 Other specified mononeuropathies; L30.9 Dermatitis, unspecified
CPT/HCPCS: 27245; 00123; 36415; 51702; 73552; 80048; 80053; 85027; 93005; 96374; 96375; 96376; 97110; 97162; 97530; 97535; 99223; 99233; 99285; 70450; 71045; 72125; 72170; 73501; 73560; 83735; 85025; 85610; 85730; 93010; 99239; J0690; J1100; J2003; J2270; J2371; J2405; J2704; J3010

== ENCOUNTER 2024-08-07 15:32 | Outpatient (CLI) | payer MEDICARE, MEDICAID, SELFPAY ==
--- NOTE | 2024-08-07 10:45 | DI.RAD_ITS ---
Exam(s) XR HIP LT AP LAT ONLY EXAM: XR HIP LT AP LAT ONLY INDICATION: S/P IM NAIL. COMPARISON: CR XR FEMUR LT from 07/11/2024 TECHNIQUE: 2D digital imaging was performed. Two views. FINDINGS: Stable fracture and hardware alignment. There has been some interval healing at the proximal femoral fracture. DATA REPOSITORY: RADIATION DOSE DELIVERED:
== END 2024-08-07 15:33 | disposition home or self-care (01) ==
LOC: DIORS 15:32
PROVIDERS: PCP Nurse Practitioner Family; Referring Provider Nurse Practitioner Family; Visit Provider Student in an Organized Health Care Education/Training Program
DX: S72.142D Displaced intertrochanteric fracture of left femur, subsequent encounter for closed fracture with routine healing (principal); X58.XXXD Exposure to other specified factors, subsequent encounter
CPT/HCPCS: 99024; 73502

== ENCOUNTER 2024-08-07 22:15 | Outpatient (REF) | payer MEDICARE, MEDICAID, SELFPAY ==
[2024-08-07 21:28] LABS: Bilirubin Negative (Negative); Blood Trace-intact (Negative); Clarity Sl Cloudy (Clear); Glucose Negative (Negative); Ketones Negative (Negative); Leukocyte Esterase Moderate (Negative); Nitrite Negative (Negative); Specific Gravity >= 1.030 (1.005-1.025); Urobilinogen 0.2 mg/dL (Up to 0.2)
[2024-08-07 21:33] LABS: Bacteria Few HPF (Negative); C & S Indicated? C&S Done As Ordered; Casts Negative LPF (Negative); Crystals Negative HPF (Negative); Epithelial Cells Few HPF (Negative); Mucus Negative (Negative)
== END 2024-08-07 22:16 | disposition home or self-care (01) ==
LOC: LBN 22:15
PROVIDERS: PCP Nurse Practitioner Family; Visit Provider Nurse Practitioner Family
DX: R30.0 Dysuria (principal); N39.0 Urinary tract infection, site not specified
CPT/HCPCS: 81003; 81015; 87086

== ENCOUNTER 2024-08-19 18:33 | Outpatient (REF) | payer MEDICARE, MEDICAID, SELFPAY ==
[2024-08-19 18:32] LABS: HGB 12.4 g/dL (13.5-17.5); MCH 29.2 pg (27.0-33.0); MCHC 31.8 % (32.0-36.0); MCV 92 fL (80-95); MPV 10.1 fL (8.0-11.0); Platelet Count 231 10^3/uL (130-400); RBC 4.25 10^6/uL (4.36-5.78); RDW-SD 50.7 fL; WBC 6.26 10^3/uL (4.4-10.8)
[2024-08-19 18:40] LABS: Anion Gap 8.3 mmol/L (3-11); BUN 14 mg/dL (7-18); CO2 32.7 mmol/L (21.0-32.0); CREATININE 0.7 mg/dL (0.70-1.30); Calcium 9.6 mg/dL (8.5-10.1); Chloride 101 mmol/L (98-107); Estimated GFR 88.08 (mL/min/1.73m2); Glucose 101 mg/dL (74-106); Potassium 3.5 mmol/L (3.5-5.1); Sodium 142 mmol/L (136-145)
== END 2024-08-19 18:34 | disposition home or self-care (01) ==
LOC: LBN 18:33
PROVIDERS: PCP Nurse Practitioner Family; Visit Provider Nurse Practitioner Family
DX: D64.9 Anemia, unspecified (principal); E87.6 Hypokalemia; I48.20 Chronic atrial fibrillation, unspecified
CPT/HCPCS: 80048; 85027

== ENCOUNTER 2024-09-29 11:15 | Outpatient (CLI) | payer MEDICARE, MEDICAID, SELFPAY ==
--- NOTE | 2024-09-29 11:00 | DI.RAD_ITS ---
Exam(s) XR HIP LT AP LAT ONLY EXAM: XR HIP LT AP LAT ONLY CLINICAL HISTORY: S/P IM NAIL. TECHNIQUE: 2D digital imaging was performed. Two images were obtained. AP and lateral views were ob tained. COMPARISON: CR XR HIP LT AP LAT ONLY from 08/07/2024 FINDINGS: BONES: There are stable post operative changes of an internal fixation of an intertrochanteric fractu re of the left femur present. The orthopedic hardware is in stable position. There is stable alignm ent of the fracture. The fracture lines are still visualized. No new fracture or dislocation. JOINTS: The joint spaces are well maintained. SOFT TISSUE: Vascular calcifications are present. IMPRESSION: Stable postoperative changes. DATA REPOSITORY: RADIATION DOSE DELIVERED:
== END 2024-09-29 11:16 | disposition home or self-care (01) ==
LOC: DIORS 11:15
PROVIDERS: PCP Nurse Practitioner Family; Referring Provider Nurse Practitioner Family; Visit Provider Student in an Organized Health Care Education/Training Program
DX: S72.142D Displaced intertrochanteric fracture of left femur, subsequent encounter for closed fracture with routine healing (principal); Z47.89 Encounter for other orthopedic aftercare; X58.XXXD Exposure to other specified factors, subsequent encounter
CPT/HCPCS: 99024; 73502

== ENCOUNTER → 2024-11-24 11:00 | Outpatient (BNVA) | payer MEDICARE, MEDICAID, SELFPAY | PROVIDERS: PCP Nurse Practitioner Family; Referring Provider Nurse Practitioner Family; Visit Provider Physician Assistant | DX: S72.142D Displaced intertrochanteric fracture of left femur, subsequent encounter for closed fracture with routine healing (principal); X58.XXXD Exposure to other specified factors, subsequent encounter | CPT/HCPCS: 99213 ==

== ENCOUNTER 2025-02-19 11:30 | Outpatient (CLI) | payer MEDICARE, MEDICAID, SELFPAY ==
--- NOTE | 2025-02-19 09:15 | DI.RAD_ITS ---
Exam(s) XR HIP LT AP LAT ONLY EXAM: XR HIP LT AP LAT ONLY CLINICAL HISTORY: left hip fracture eval, recent lateral pain/fall. TECHNIQUE: 2D digital imaging was performed. COMPARISON: CR XR HIP LT AP LAT ONLY from 08/07/2024 CR XR HIP LT AP LAT ONLY from 09/29/2024 FINDINGS: Two views Again noted is the ORIF hardware in the left hip which appears stable without evidence of migration or loosening. There is further healing of the intertrochanteric fracture site including further healing at the level the avulsed lesser trochanter. Fracture lines are no longer visible. IMPRESSION: Satisfactory appearance as above. DATA REPOSITORY: RADIATION DOSE DELIVERED:
== END 2025-02-19 11:31 | disposition home or self-care (01) ==
LOC: DIORS 11:30
PROVIDERS: PCP Nurse Practitioner Family; Referring Provider Nurse Practitioner Family; Visit Provider Student in an Organized Health Care Education/Training Program
DX: M70.62 Trochanteric bursitis, left hip (principal); S72.002D Fracture of unspecified part of neck of left femur, subsequent encounter for closed fracture with routine healing; X58.XXXD Exposure to other specified factors, subsequent encounter
CPT/HCPCS: 20610; J1010; 73502

== ENCOUNTER 2025-03-31 10:34 | Observation (INO) | payer MEDICARE, MEDICAID, SELFPAY ==
[2025-03-31] VITALS (7 sets, daily range): BP systolic 131–153; BP diastolic 62–79; PULSE 67–83; RESP 16–18; TEMP 36.5–36.6; O2SAT 88–97
--- NOTE | 2025-03-31 10:30 | DI.RAD_ITS ---
Exam(s) XR CHEST 1V IN DI DEPT EXAM: XR CHEST 1V IN DI DEPT CLINICAL HISTORY: Right hip pain. TECHNIQUE: 2D digital imaging was performed. COMPARISON: CR,XR XR CHEST 1V IN DI DEPT from 07/09/2024 FINDINGS: Single AP portable view. There is cardiomegaly again noted. Increased markings in the left upper lobe appear unchanged from 07/09/2024. Slightly increased markings in left lower lobe retrocardiac region also noted. Also increase right parahilar markings. No evidence of airspace pulmonary edema. No obvious pleural effusions. IMPRESSION: Chronic left upper lobe infiltrate. Mild left lower lobe infiltrate. No pulmonary edema. No pleural effusions DATA REPOSITORY: RADIATION DOSE DELIVERED:
--- NOTE | 2025-03-31 10:30 | DI.RAD_ITS ---
Exam(s) XR PELVIS AP EXAM: XR PELVIS AP CLINICAL HISTORY: Right hip pain. TECHNIQUE: 2D digital imaging was performed. COMPARISON: CR,XR XR PELVIS AP from 07/09/2024 FINDINGS: 3 views There is fracture of the greater trochanter of the right hip. Minimally displaced. The right femoral neck and head appear intact. IMPRESSION: Right hip greater trochanter fracture. DATA REPOSITORY: RADIATION DOSE DELIVERED:
--- NOTE | 2025-03-31 10:30 | DI.RAD_ITS ---
Exam(s) XR FEMUR RT EXAM: XR FEMUR RT CLINICAL HISTORY: Right hip pain. TECHNIQUE: 2D digital imaging was performed. COMPARISON: CR XR FEMUR LT from 03/31/2025 FINDINGS: 3 views There is a mildly displaced fracture of the greater trochanter of the right hip. This does not extend into the subtrochanteric region and there is no obvious fracture of the femoral neck. No fracture seen in the subtrochanteric in lower aspect of the femur. No tibial plateau fracture. IMPRESSION: Right hip greater trochanter fracture DATA REPOSITORY: RADIATION DOSE DELIVERED:
--- NOTE | 2025-03-31 10:39 | W.ED.GENAD ---
Discharge Plan Disposition Patient Disposition: Admit to [facility] Discharge Details Clinical Impression: Acute hypokalemia, Closed fracture of greater trochanter of right femur, Left lower lobe pulmonary infiltrate Admit Date/Time: 03/31/25 13:40 Admit Provider: Evan Akers Attending Provider: Evan Akers Primary Care Provider: Juwan Mark ED Provider: Matthew Motta Discharge Data Discharge Date/Time-TO BE ENTERED AT DEPARTURE: 03/31/25 14:31 HPI General Date/Time Provider Initiated Documentation: 03/31/25 10:39. HPI Narrative: MDM This is an elderly appearing normothermic and not tachycardic 89-year-old male with acute right hip pain concerning for fracture for which patient will undergo x-ray and CT head after being made n.p.o. No pain on proportion to suggest necrotizing soft tissue infection. No focal neurological deficits to suggest CVA so I did not feel patient required an angiogram. Patient does have an abrasion to the left side of his back but no underlying tenderness. Will obtain chest x-ray. Patient has a history of memory impairment and daughter reports that he is baseline not oriented to year. Nonetheless given apixaban use and fall will obtain CT head. Anticipate that if plain films are unremarkable patient will require more sensitive test with CT scheduled. No reported preceding chest pain to suggest ACS so did not obtain ECG. No shortness of breath to suggest PE so I did not send a D-dimer. 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 No midline cervical spinal tenderness to suggest benefit from CT cervical spine. 11:48 AM Patient was found to be hypokalemic with serum potassium of 2.9. His ECG showed that his QTc was mildly prolonged at 497 mL equivalents for which she received IV potassium repletion at 10 mill equivalents. ECG showing rate controlled atrial fibrillation at a rate of 78. Left axis deviation. No signs of LVH. Compared to prior dated earlier this year right anterior chest wall repolarization abnormality is more significant. No ST segment depressions.CBC shows normocytic anemia. No thrombocytopenia. No leukocytosis. Anemia slightly worse compared to prior. 12:52 PM On x-ray patient was found to have mild left lower lobe infiltrate for which I will treat with ceftriaxone. Patient was found to have a right hip greater trochanteric fracture with mild displacement. I ordered type and screen. Will place Hill catheter. Will reach out to orthopedics. 1 PM I was in touch with Dr. Rodriguez from the orthopedic team. He advised the patient would be managed nonoperatively. Advance patient's diet. I counseled his Hill catheter and his type and screen. Weightbearing status will be 4 point gait, no active abuction per Dr. Rodriguez. Will reach out to hospitalist team. 3 PM Radiology read patient's x-ray is concerning for infiltrate. I was in touch with Kareen Pineda from the hospitalist team. Patient lacked any fevers or new confusion or leukocytosis. Her preference was to observe patient off of antibiotics. HPI The patient presents to the emergency room for evaluation of a right hip fracture. He experienced a fall at his residence last night, resulting in a right hip fracture. The incident occurred between 1:00 and 2:00 AM. He reports no other injuries or loss of consciousness. His blood pressure readings have been within normal limits. He was administered Tylenol and fentanyl 100 mcg in 50 mcg increments for pain management. His oxygen saturation was initially 93% on room air, which improved to 96% with the administration of 3 liters of supplemental oxygen. Exam General: Elderly-appearing in no acute distress speaking in complete sentences. Head: Normocephalic, atraumatic. Eye: Extraocular eye movements intact. No conjunctival injection. No scleral icterus. Ear, nose, mouth, throat: Grossly normal inspection. Normal voice, handling secretions normally. Neck: Trachea midline. No midline cervical spinal tenderness. Cardiovascular: Well-perfused distal extremities. Regular rate and rhythm. Respiratory: Nonlabored respiration. Clear lungs bilaterally. No chest wall tenderness. Back: No midline thoracic nor lumbar spinal tenderness. No step-off. No deformities. On the left side of the upper back mid scapular line there is an approximately 4 x 4 centimeter erythematous area consistent with abrasion. Gastrointestinal: Nondistended abdomen. Soft nontender. Hernia present reducible. Musculoskeletal: Bilateral upper extremities nontender. Right hip with lateral tenderness at the proximal femur. No lacerations or ecchymosis. Range of motion testing deferred. No right lower extremity tenderness at knee or throughout tib-fib and foot. Right foot warm well-perfused intact PT and DP pulses Left lower extremity with mid femoral tenderness. No obvious ecchymoses or lacerations. No left hip tenderness. No left lower extremity tenderness at knee or throughout tib-fib and foot. Left foot warm well-perfused intact PT and DP pulses. Skin: Normal for age and race, grossly normal temperature and turgor. No acute rash. Neurologic: Alert and oriented to person and place but not time. Related Data Home Medications Medication Instructions Recorded Confirmed vitamin E (dl, acetate) 180 mg 1 cap PO DAILY 09/08/15 03/31/25 (400 unit) capsule cholecalciferol (vitamin D3) 25 2,000 unit PO DAILY 01/21/20 03/31/25 mcg (1,000 unit) capsule (Vitamin D3) albuterol sulfate 90 mcg/actuation 2 puff inhalation Q6H PRN 08/24/22 03/31/25 aerosol inhaler shortness of breath or wheezing #8.5 grams latanoprost 0.005 % eye drops 1 drp ophthalmic (eye) QPM #7.5 mL 02/28/23 03/31/25 potassium chloride 20 mEq 20 meq PO DAILY #90 tab-caps 05/28/24 03/31/25 tablet,extended release(part/cryst) atorvastatin 40 mg tablet See Rx Instructions .Route 07/10/24 03/31/25 .COMPLEX #90 tabs triamcinolone acetonide 0.1 % 1 applic topical BID 10 days #80 09/23/24 03/31/25 topical cream grams benazepril 20 1 tab PO DAILY #90 tabs 12/11/24 03/31/25 mg-hydrochlorothiazide 25 mg tablet apixaban 5 mg tablet (Eliquis) 5 mg PO BID 90 days #180 tab-caps 01/14/25 03/31/25 Previous Rx's Medication Instructions Recorded albuterol sulfate 90 mcg/actuation 2 puff inhalation Q6H PRN 08/24/22 aerosol inhaler shortness of breath or wheezing #8.5 grams latanoprost 0.005 % eye drops 1 drp ophthalmic (eye) QPM #7.5 mL 02/28/23 potassium chloride 20 mEq 20 meq PO DAILY #90 tab-caps 05/28/24 tablet,extended release(part/cryst) atorvastatin 40 mg tablet See Rx Instructions .Route 07/10/24 .COMPLEX #90 tabs triamcinolone acetonide 0.1 % 1 applic topical BID 10 days #80 09/23/24 topical cream grams benazepril 20 1 tab PO DAILY #90 tabs 12/11/24 mg-hydrochlorothiazide 25 mg tablet apixaban 5 mg tablet (Eliquis) 5 mg PO BID 90 days #180 tab-caps 01/14/25 Allergies Allergy/AdvReac Type Severity Reaction Status Date / Time acetaminophen (From Tylenol) Allergy Itching Verified 03/16/25 16:03 General RACHAEL: 3 Medical Decision Making Quality:SDOH Health Related Social Needs: Health related social needs daily activities PFSH All Active Problems (Updated 03/31/25 @ 16:45 by Matthew Motta MD) Left lower lobe pulmonary infiltrate (Acute) On deep vein thrombosis (DVT) prophylaxis (Acute) Closed fracture of greater trochanter of right femur (Acute) Acute hypokalemia (Acute) Trochanteric bursitis, left hip (Acute) DEPO MEDROL 02/19/25 Femur fracture (Acute) Arthritis (Acute) Bladder stone (Acute 01/27/16) removed / Central retinal vein occlusion (Acute 03/05/17) [facility] [place] (Avastin OD) Chronic atrial fibrillation (Acute 10/04/15) Hyperplasia of prostate (Acute 10/03/12) Language difficulty (Acute) Not [place] speaker Memory impairment (Acute 05/08/13) 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) Normal B12; Ulnar Eczema (Chronic) Bilateral lower legs HTN (hypertension) (Chronic) Dysuria (Acute) Stenosis of rectum and anus (Acute) Gross hematuria (Acute 01/27/16) Depression (Chronic) Fatigue (Acute) Slow heart rate (Acute) Medical History Closed left hip fracture Chest pain Contracture, left shoulder Left rotator cuff tear arthropathy Atrial fibrillation BPH (benign prostatic hyperplasia) Nasal polyp surgically removed Surgical History Intertrochanteric fracture of left femur (07/09/24) S/P IM nail fixation: 07/10/2024 Hx of cystoscopy daughter reports prostate was cleared out Hx of appendectomy S/P excision of lipoma left thigh Family History Mother , 73 Stroke Father , 40 No problems noted. Sister , 73 No problems noted. Sister , 80 Stroke Diabetes Daughter No problems noted. Daughter No problems noted. Social History Smoking/Tobacco Use Status: Former Tobacco Use tobacco type: cigarettes Quit Date: 05/21/15 Second Hand Exposure: Yes Smoking risk assessment performed?: Yes Alcohol Intake: current Alcohol Intake frequency: holidays/special occasions only Alcohol type: beer, wine and hard liquor Drug use: Never Substance use type: does not use Details: alcohol: t-1, 1/2 glass of wine Caregiver/Support person: No Housing: house Communication Needs: Language Barriers Do you need help understanding health information?: Always Pets and animals: No Sexually active: No Do you think of yourself as: straight/heterosexual What is your relationship status?: How often do you talk on the phone with friends or family?: three or more times per week How often do you get together with friends or relatives?: once per week Do you belong to any clubs or organized social groups?: no Panel score (0-1 are the most socially isolated patients): 1 What type of physical activity do you participate in: walking Duration: 15-30 minutes/day Frequency: 3-4 times per week Janae/Yarsanism: Rastafarian Seatbelt use: always Drive intox or ride w/intox local bulk driver: No Additional Social history: Unable to assess carinatcarlene, daughter in room
--- NOTE | 2025-03-31 11:00 | RT.EKG_ITS ---
APPROVED REPORT Exam: Resting ECG Reason for Exam: Fall Patient Location: E HR:78 bpm ECG Measurements Heart Rate 78 AXIS WA [id number] P [id number] QRSd 101 QRS 29 QT 437 T -87 QTc 497 Conclusion Atrial fibrillation...? atrial activity Anterior infarct, old...Q >40mS, abnormal ST-T, V2-V5 Repol abnrm suggests ischemia, lateral leads...ST dep, T neg, I aVL V5 V6 No Occlusion AL
--- NOTE | 2025-03-31 11:00 | DI.RAD_ITS ---
Exam(s) XR FEMUR LT EXAM: XR FEMUR LT CLINICAL HISTORY: Left mid femur pain. TECHNIQUE: 2D digital imaging was performed. COMPARISON: CR XR FEMUR LT from 07/11/2024 FINDINGS: 3 views There is ORIF hardware in left hip with evidence of healing when compared to images of 07/11/2024. There is no evidence of acute fracture and no obvious hardware loosening. Lower down there are no fractures in the distal femur evident. IMPRESSION: No fracture of the left femur and hip. ORIF hardware in the left hip noted. DATA REPOSITORY: RADIATION DOSE DELIVERED:
[2025-03-31 11:32] LABS: Abs Immature Grans 0.03 10^3/uL (0.0-0.06); HCT 32.4 % (40.0-50.0); HGB 10.7 g/dL (13.5-17.5); Immature Grans % 0.4 %; MCH 28.1 pg (27.0-33.0); MCHC 33.0 % (32.0-36.0); MCV 85 fL (80-95); MPV 8.7 fL (8.0-11.0); Platelet Count 159 10^3/uL (130-400); RBC 3.81 10^6/uL (4.36-5.78); RDW 15.2 % (11.8-14.1); RDW-SD 47.0 fL; WBC 8.17 10^3/uL (4.4-10.8)
[2025-03-31] MEDS: Normal Saline 500 ML IV (11:39)
[2025-03-31 11:45] LABS: Anion Gap 10.4 mmol/L (3-11); BUN 10 mg/dL (7-18); CO2 25.6 mmol/L (21.0-32.0); Calcium 8.6 mg/dL (8.5-10.1); Chloride 100 mmol/L (98-107); Glucose 148 mg/dL (74-106); Sodium 136 mmol/L (136-145)
[2025-03-31 11:47] LABS: Potassium 2.9 mmol/L (3.5-5.1)
[2025-03-31] MEDS: MORPHine 4 MG/ML SYR IVP (11:54)
--- NOTE | 2025-03-31 13:05 | DI.CT_ITS ---
Exam(s) CT PELVIC WO EXAM: CT PELVIC WO CLINICAL HISTORY: Right proximal femur pain. Please complete pelvis. TECHNIQUE: Imaging Protocol: Axial computed tomography images with coronal and sagittal reformatted images were created and reviewed CONTRAST MATERIAL: Intravenous: none Oral: None COMPARISON: No exams were available for comparison FINDING: PELVIS: OSSEOUS: There is an acute fracture of the right hip involving the greater trochanter. There is no avulsion of the lesser trochanter. There are mild degenerative changes in the hip.No significant osseous lesions evident.Opposite- left hip contains ORIF hardware and no evidence of acute left hip fracture. No additional pelvic fractures identified. No evidence of intrapelvic hematoma. OTHER: Common iliac arteries are heavily calcified. There is no intrapelvic nor inguinal adenopathy. Anterior abdominal wall umbilical hernia is noted which is only partially included in the field of view of this pelvis only study. There is no ascites in the pelvis. No evidence of bowel obstruction. Prostate mildly enlarged. Seminal vesicles unremarkable. Urinary bladder mildly distended. Pelvic ureters are not dilated. IMPRESSION: 1. Intertrochanteric fracture of the right hip. Minimal displacement. 2. No osseous lesions. 3. No intrapelvic hematoma. RADIATION DOSE DELIVERED: 363.83mGy.cm Total DLP DATA REPOSITORY: All CT scans at this facility are submitted to the National Radiology Data Registry (NRDR) Dose Index Registry (DIR) with the [employer] ([employer]). RADIATION OPTIMIZATION: All CT scans at this facility use at least one of these dose optimization techniques: automated exposure control; mA and/or kV adjustment per patient size (includes targeted exams where dose is matched to clinical indication); or iterative reconstruction.
--- NOTE | 2025-03-31 13:05 | DI.CT_ITS ---
Exam(s) CT HEAD WO EXAM: CT HEAD WO CLINICAL HISTORY: fall AMS. TECHNIQUE: Imaging Protocol: Axial computed tomography images with coronal and sagittal reformatted images were created and reviewed COMPARISON: CT CT HEAD CERVICAL SPINE WO from 07/09/2024 FINDINGS: There are no skull fractures. There is no fluid in the visualized paranasal sinuses. There is no evidence of intracranial hemorrhage, mass effect, or shift of midline structures. There are no extra-axial fluid collections. The ventricles are not enlarged or shifted and there is no blood within the ventricular system nor within the basal cisterns. There is symmetrical involutional change. No ventriculomegaly. There is moderate amount of bilateral periventricular hypodensity consistent with chronic small vessel disease. There are lacunar infarcts in both external capsules noted which are similar to the prior CT scan of June 2024. No new t erritorial infarct evident. IMPRESSION: No acute intracranial findings on this noninfused CT scan of the brain. Chronic small-vessel white matter ischemic changes again noted but unchanged from June [address]24 CT scan. Report called by myself to ER 03/31/2025 at 1:30 p.m. RADIATION DOSE DELIVERED: 871mGy.cm Total DLP DATA REPOSITORY: All CT scans at this facility are submitted to the National Radiology Data Registry (NRDR) Dose Index Registry (DIR) with the [employer] (ACR). RADIATION OPTIMIZATION: All CT scans at this facility use at least one of these dose optimization techniques: automated exposure control; mA and/or kV adjustment per patient size (includes targeted exams where dose is matched to clinical indication); or iterative reconstruction.
--- NOTE | 2025-03-31 13:05 | W.PM.HP.N ---
Date of service: 03/31/25 Time of Service: 13:06 Assessment and Plan Assessment and plan (1) Closed fracture of greater trochanter of right femur: Status: Acute Assessment and plan: As per imaging in the ED Non-operable as per orthopedic consult Pain management with acetaminophen scheduled, PRN ketorolac , PRN PO hydromorphone and PRN IV hydromorphone (2) Acute hypokalemia: Status: Acute Assessment and plan: Supplemented BMP (3) Chronic atrial fibrillation: Status: Acute Assessment and plan: MVR heart rate 77 Continue low-dose Eliquis (4) Hyperplasia of prostate: Status: Acute Assessment and plan: Continue home regimen with CIC q. weekly on Sunday (5) Memory impairment: Status: Acute Assessment and plan: At baseline (6) HTN (hypertension): Status: Chronic Assessment and plan: Continue home medicine regimen (7) Language difficulty: Status: Acute Assessment and plan: The patient speaks tree other languages Estonian learned at her older age and can understand part of the conversation Consider translation services (8) On deep vein thrombosis (DVT) prophylaxis: Status: Acute Assessment and plan: Ongoing low molecular weight heparin Discussed with Dr. Akers History of Present Illness Narrative: This 89 years old male patient with past medical history of atrial fibrillation on Eliquis, hypertension, BPH, umbilical hernia, presented to the ED at [facility] for evaluation of right lower extremity pain status post fall last night. Workup in the ED was consistent right closed greater trochanteric fracture with minimal displacement as per CT imaging. Workup was positive for hypokalemia 2.9 stable anemia with hemoglobin 10.[address] was negative for any acute findings. X-ray showed chronic left lower lobe infiltrate and mild left lower lobe infiltrate. Stable ORIF hardware seen in the left hip without fracture. Oximetry in the ED showing a saturation at 88% on room air improving to saturation above 92% on oxygen supplementation at 2 L. In the ED, the patient received morphine, fentanyl ( EMS), potassium replacement and IV fluid. Orthopedic services were consulted and deemed that the fracture was non-operable . The . Patient was admitted to the medical surgical floor by the hospitalist service for hemodynamic and physical therapy. The patient denies dizziness, chills, fever, in vision, head strike, fainting or syncope, cough, chest pain, worsening weakness or fatigue for the past few days, nausea vomiting diarrhea or dysuria. The patient reports falling but left remembering if he tripped, episodic periumbilical hernia pain. Patient sitting diet he would not want to have CPR administration nurse patient is a DNR/DNI. Patient reporting speaking Citizen Of [place] Swedish [place]an, but only for Estonian most of the interview was completed by his daughter residential property manager or preferred by ED provider previously was declined. Review of Systems All systems reviewed & are unremarkable except as noted in HPI and below PFSH All Active Problems (Updated 03/31/25 @ 16:21 by Kareen Pineda APRN) On deep vein thrombosis (DVT) prophylaxis (Acute) Closed fracture of greater trochanter of right femur (Acute) Acute hypokalemia (Acute) Trochanteric bursitis, left hip (Acute) DEPO MEDROL 02/19/25 Femur fracture (Acute) Arthritis (Acute) Bladder stone (Acute 01/27/16) removed / Central retinal [place] occlusion [place]Ac[place]05/17[place] [facility] [place] Chronic atrial fibrillation (Acute 10/04/15) Hyperplasia of prostate (Acute 10/03/12) Language difficulty (Acute) Not kaw speaker Memory impairment (Acute 05/08/13) 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) Normal B12; Ulnar Eczema (Chronic) Bilateral lower legs HTN (hypertension) (Chronic) Dysuria (Acute) Stenosis of rectum and anus (Acute) Gross hematuria (Acute 01/27/16) Depression (Chronic) Fatigue (Acute) Slow heart rate (Acute) Medical History Closed left hip fracture Chest pain Contracture, left shoulder Left rotator cuff tear arthropathy Atrial fibrillation BPH (benign prostatic hyperplasia) Nasal polyp surgically removed Surgical History Intertrochanteric fracture of left femur (07/09/24) S/P IM nail fixation: 07/10/2024 Hx of cystoscopy daughter reports prostate was cleared out Hx of appendectomy S/P excision of lipoma left thigh Family History Mother , 73 Stroke Father , 40 No problems noted. Sister , 73 No problems noted. Sister , 80 Stroke Diabetes Daughter No problems noted. Daughter No problems noted. Social History Smoking/Tobacco Use Status: Former Tobacco Use tobacco type: cigarettes Quit Date: 05/21/15 Second Hand Exposure: Yes Smoking risk assessment performed?: Yes Alcohol Intake: current Alcohol Intake frequency: holidays/special occasions only Alcohol type: beer, wine and hard liquor Drug use: Never Substance use type: does not use Details: alcohol: t-1, 1/2 glass of wine Caregiver/Support person: No Housing: house Communication Needs: Language Barriers Do you need help understanding health information?: Always Pets and animals: No Sexually active: No Do you think of yourself as: straight/heterosexual What is your relationship status?: How often do you talk on the phone with friends or family?: three or more times per week How often do you get together with friends or relatives?: once per week Do you belong to any clubs or organized social groups?: no Panel score (0-1 are the most socially isolated patients): 1 What type of physical activity do you participate in: walking Duration: 15-30 minutes/day Frequency: 3-4 times per week Janae/Nondenominational: Denominational Seatbelt use: always Drive intox or ride w/intox hydraulic lift driver: No Additional Social history: Unable to assess ingris daughter in room Meds Allergies and Home Medications Allergies Allergy/AdvReac Type Severity Reaction Status Date / Time acetaminophen (From Tylenol) Allergy Itching Verified 03/16/25 16:03 Home Medications Medication Instructions Recorded Confirmed Type vitamin E (dl, acetate) 180 mg 1 cap PO DAILY 09/08/15 03/31/25 History (400 unit) capsule cholecalciferol (vitamin D3) 25 2,000 unit PO DAILY 01/21/20 03/31/25 History mcg (1,000 unit) capsule (Vitamin D3) albuterol sulfate 90 mcg/actuation 2 puff inhalation Q6H PRN 08/24/22 03/31/25 Rx aerosol inhaler shortness of breath or wheezing #8.5 grams latanoprost 0.005 % eye drops 1 drp ophthalmic (eye) QPM #7.5 mL 02/28/23 03/31/25 Rx potassium chloride 20 mEq 20 meq PO DAILY #90 tab-caps 05/28/24 03/31/25 Rx tablet,extended release(part/cryst) atorvastatin 40 mg tablet See Rx Instructions .Route 07/10/24 03/31/25 Rx .COMPLEX #90 tabs triamcinolone acetonide 0.1 % 1 applic topical BID 10 days #80 09/23/24 03/31/25 Rx topical cream grams benazepril 20 1 tab PO DAILY #90 tabs 12/11/24 03/31/25 Rx mg-hydrochlorothiazide 25 mg tablet apixaban 5 mg tablet (Eliquis) 5 mg PO BID 90 days #180 tab-caps 01/14/25 03/31/25 Rx Exam Narrative Exam Narrative: 89-year-old male looking of stated age, alert to self place and year: Ongoing chronic impairment, no acute focal neurological deficit, unlabored breathing clear lungs, S1-S2 irregular A-fib MDR on nuclear monitoring technician EDP x 4, abdomen is nondistended soft nontender, moves all 4 extremities no shortening of right lower extremity strength to R lower extremity due to pain on mobilization, no external rotation noted Results Labs 03/31/25 11:23 03/31/25 11:23 Labs: Laboratory Results - last 24 hr 03/31/25 03/31/25 03/31/25 11:12 11:23 12:53 WBC 8.17 RBC 3.81 L Hgb 10.7 L Hct 32.4 L MCV 85 MCH 28.1 MCHC 33.0 RDW 15.2 H Plt Count 159 MPV 8.7 Immature Gran % 0.4 Neutrophils % 87.9 Lymphocytes % 4.5 Monocytes % 6.9 Eosinophils % 0.2 Basophils % 0.1 Nucleated RBC % 0.0 Absolute Neutrophils 7.18 H Absolute Lymphocytes 0.37 L Absolute Monocytes 0.56 Absolute Eosinophils 0.02 Absolute Basophils 0.01 Sodium 136 Potassium 2.9 L* Chloride 100 Carbon Dioxide 25.6 Anion Gap 10.4 BUN 10 Creatinine 0.7 Est GFR (CKD-EPI 2020) 88.08 Glucose 148 H Calcium 8.6 Urine Color Cancelled Urine Clarity Cancelled Urine pH Cancelled Ur Specific [place] Cancelled Urine Protein Cancelled Urine Ketones Cancelled Urine Blood Cancelled Urine Nitrite Cancelled Urine Bilirubin Cancelled Urine Urobilinogen Cancelled Ur Leukocyte Esterase Cancelled Urine Glucose Cancelled ABO/Rh Cancelled Antibody Screen Cancelled Last Vital Signs Temp 36.5 C 03/31/25 10:43 Pulse 74 03/31/25 10:43 Resp 16 03/31/25 10:43 BP 151/72 H 03/31/25 10:43 Pulse Ox 88 L 03/31/25 10:43 Time Spent Time spent with Patient: >75 minutes Time was spent: preparing to see the patient(eg.review tests), obtaining and/or reviewing separately otained hiistory, ordering medications,tests, procedures, referring, communicating with other health managed care director, indepentently interpreting results, counseling the patient, care coordination and other
[2025-03-31] MEDS: POTASSIUM CHLORIDE 10 MEQ/100 ML BAG 100 MEQ IV_INF (13:14)
--- NOTE | 2025-03-31 14:20 | W.PC.ACHO ---
Registration Status: REG ER Primary Language: Preferred Language: Upper Sorbian ED Information & Data Chief Complaint Orthopedic 03/31/25 10:43 Triage Note right hip pain fall last 03/31/25 10:43 night, EMS went out declined transport. Unable to sit on commode this AM or ambulate at baseline Medical / Surgical History (Last Reviewed 02/21/25 @ 07:13 by James Rodriguez MD) Closed left hip fracture Chest pain Contracture, left shoulder Left rotator cuff tear arthropathy Atrial fibrillation BPH (benign prostatic hyperplasia) Nasal polyp (Last Reviewed 02/21/25 @ 07:13 by James Rodriguez MD) Intertrochanteric fracture of left femur (07/09/24) Hx of cystoscopy Hx of appendectomy S/P excision of lipoma Most Recent Vital Signs Temperature 36.5 C 03/31/25 10:43 Temperature Source Oral 03/31/25 10:43 Pulse 74 03/31/25 10:43 Respiratory Rate 16 03/31/25 10:43 Blood Pressure 151/72 H 03/31/25 10:43 Pulse Oximetry 88 L 03/31/25 10:43 Oxygen Delivery Method Room Air 03/31/25 10:43 Oxygen Flow Rate 0 03/31/25 10:43 Allergies acetaminophen (From Tylenol) Allergy (Verified 03/16/25 16:03) Itching IV IV Catheter Type [Right Hand] Saline Lock IV Catheter Gauge [Right Hand] 20 Diet Orders Category Date Time Status DIET [Regular/Normal] [DIET] Nutrition 03/31/25 Dinner Active Diagnostics 03/31/25 03/31/25 03/31/25 Range/Units 12:53 11:23 11:12 WBC 8.17 (4.4-10.8) 10^3/uL RBC 3.81 L (4.36-5.78) 10^6/uL Hgb 10.7 L (13.5-17.5) g/dL Hct 32.4 L (40.0-50.0) % MCV 85 (80-95) fL MCH 28.1 (27.0-33.0) pg MCHC 33.0 (32.0-36.0) % RDW 15.2 H (11.8-14.1) % Plt Count 159 (130-400) 10^3/uL MPV 8.7 (8.0-11.0) fL Immature Gran % 0.4 % Neutrophils % 87.9 % Lymphocytes % 4.5 % Monocytes % 6.9 % Eosinophils % 0.2 % Basophils % 0.1 % Nucleated RBC % 0.0 (0.0-0.3) % Absolute Neutrophils 7.18 H (1.2-6.7) 10^3/uL Absolute Lymphocytes 0.37 L (1.2-3.4) 10^3/uL Absolute Monocytes 0.56 (0.1-0.8) 10^3/uL Absolute Eosinophils 0.02 (0.0-0.7) 10^3/uL Absolute Basophils 0.01 (0.0-0.2) 10^3/uL Sodium 136 (136-145) mmol/L Potassium 2.9 L* (3.5-5.1) mmol/L Chloride 100 (98-107) mmol/L Carbon Dioxide 25.6 (21.0-32.0) mmol/L Anion Gap 10.4 (3-11) mmol/L BUN 10 (7-18) mg/dL Creatinine 0.7 (0.70-1.30) mg/dL Est GFR (CKD-EPI 2020) 88.08 (mL/min/1.73m2) Glucose 148 H (74-106) mg/dL Calcium 8.6 (8.5-10.1) mg/dL Urine Color Cancelled Urine Clarity Cancelled Urine pH Cancelled Ur Specific [place] Cancelled Urine Protein Cancelled Urine Ketones Cancelled Urine Blood Cancelled Urine Nitrite Cancelled Urine Bilirubin Cancelled Urine Urobilinogen Cancelled Ur Leukocyte Esterase Cancelled Urine Glucose Cancelled ABO/Rh Cancelled Antibody Screen Cancelled Intake and Output - 24 Hour Total 03/31/25 10:34 thru 03/31/25 11:39 Intake Total 10 Balance 10 Weight 80.9 kg Intake: IV 10 Problems (Last Reviewed 02/21/25 @ 07:13 by James Rodriguez MD) Closed fracture of greater trochanter of right femur (Acute) Acute hypokalemia (Acute) Attestation Statement: By documenting the first initial, last name, and credentials of the reporting nurse below, both parties acknowledge that all relevant information regarding the patient handoff has been communicated, and that all questions have been addressed to ensure continuity and safety of care. Additional Patient Information/Comments: Called ED reportobtained from Jennifer TORRES. patient fell over night, declined EMS transfer. THis am unable to ambulate. r hip fracture, no surgery at this time. vss, patient does not speak Upper Sorbian, family translating for patient Report Received From:
[2025-03-31] MEDS: Ketorolac 15 MG/ML VIAL IVP ×2 (16:45→23:26)
[2025-03-31] MEDS: Pantoprazole 40 MG VIAL IVP (18:27)
[2025-03-31] MEDS: Atorvastatin 40 MG TAB PO (20:21)
[2025-03-31] MEDS: Apixaban 5 MG TAB PO (20:21)
[2025-03-31] MEDS: Normal Saline Flush 10 ML SYR IVP ×2 (20:22→23:27)
--- NOTE | 2025-03-31 21:09 | OCONE_ITS ---
Date of service: 03/31/25 Time of Service: 16:35 History of Present Illness History of Present Illness Chief Complaint: Right Hip Pain Narrative: Merary is an 89-year-old male who I do previously from a left hip fracture. He lives with assistance at his home but is fairly functional independent. He recovered nicely from his left hip fracture surgery, somewhat complicated by trochanteric bursitis but responded to an injection. He is independent with ambulation with actually walking outside with minimal assistance. Unfortunately, he had a fall onto his right side while at home. He was able to get up and mobilize. He was able to get up from the toilet a few times but had persistent pain. Therefore, he was taken to the emergency department. Consults Consult date: 03/31/25 Requesting physician: Matthew Motta Consult Reason Right greater trochanter fracture Assessment and Plan Assessment and plan (1) Closed fracture of greater trochanter of right femur: Status: Acute Assessment and plan: Merary is an 89-year-old who suffered a fall onto his right side which resulted in a fracture of the greater trochanter of the right proximal femur. This can be managed nonoperatively. It may displace slightly but there is still is very little surgical indication for treatment of this. The best treatment would be 6 weeks of 4-point gait, walker at all times with the knee slightly wider than hips. No adduction of the hip across the midline and no active abduction of the hip. Uses hands to assist with all weightbearing as well as rising from a chair or toilet. There is little need to follow this with serial x-rays but only follow-up in orthopedics in 6 weeks. Review of Systems All systems reviewed & are unremarkable except as noted in HPI and below PFSH All Active Problems Left lower lobe pulmonary infiltrate (Acute) On deep vein thrombosis (DVT) prophylaxis (Acute) Closed fracture of greater trochanter of right femur (Acute) Acute hypokalemia (Acute) Trochanteric bursitis, left hip (Acute) DEPO MEDROL 02/19/25 Femur fracture (Acute) Arthritis (Acute) Bladder stone (Acute 01/27/16) removed / Central retinal vein occlusion (Acute 03/05/17) [facility] [place] (Avastin OD) Chronic atrial fibrillation (Acute 10/04/15) Hyperplasia of prostate (Acute 10/03/12) Language difficulty (Acute) Not [place] speaker Memory impairment (Acute 05/08/13) 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) Normal B12; Ulnar Eczema (Chronic) Bilateral lower legs HTN (hypertension) (Chronic) Dysuria (Acute) Stenosis of rectum and anus (Acute) Gross hematuria (Acute 01/27/16) Depression (Chronic) Fatigue (Acute) Slow heart rate (Acute) Medical History Closed left hip fracture Chest pain Contracture, left shoulder Left rotator cuff tear arthropathy Atrial fibrillation BPH (benign prostatic hyperplasia) Nasal polyp surgically removed Surgical History Intertrochanteric fracture of left femur (07/09/24) S/P IM nail fixation: 07/10/2024 Hx of cystoscopy daughter reports prostate was cleared out Hx of appendectomy S/P excision of lipoma left thigh Family History Mother , 73 Stroke Father , 40 No problems noted. Sister , 73 No problems noted. Sister , 80 Stroke Diabetes Daughter No problems noted. Daughter No problems noted. Social History Smoking/Tobacco Use Status: Former Tobacco Use tobacco type: cigarettes Quit Date: 05/21/15 Second Hand Exposure: Yes Smoking risk assessment performed?: Yes Alcohol Intake: current Alcohol Intake frequency: holidays/special occasions only Alcohol type: beer, wine and hard liquor Drug use: Never Substance use type: does not use Details: alcohol: t-1, 1/2 glass of wine Caregiver/Support person: No Housing: house Communication Needs: Language Barriers Do you need help understanding health information?: Always Pets and animals: No Sexually active: No Do you think of yourself as: straight/heterosexual What is your relationship status?: How often do you talk on the phone with friends or family?: three or more times per week How often do you get together with friends or relatives?: once per week Do you belong to any clubs or organized social groups?: no Panel score (0-1 are the most socially isolated patients): 1 What type of physical activity do you participate in: walking Duration: 15-30 minutes/day Frequency: 3-4 times per week Janae/Zoroastrian: Latter Day Seatbelt use: always Drive intox or ride w/intox after school driver: No Additional Social history: Unable to assess polly amado in room Exam Narrative Exam Narrative: Sitting up in bed comfortably. Reevaluation the right hip shows no significant ecchymosis. Gentle passive internal and external rotation does not increase pain. There is pain palpation of the greater trochanter and the lateral right hip. Results Last Vital Signs Temp 36.6 C 03/31/25 19:34 Pulse 83 03/31/25 19:34 Resp 18 03/31/25 19:34 BP 142/67 H 03/31/25 19:34 Pulse Ox 97 03/31/25 19:34 Labs 03/31/25 11:23 03/31/25 11:23 Labs: Laboratory Results - last 24 hr 03/31/25 03/31/25 03/31/25 11:12 11:23 12:53 WBC 8.17 RBC 3.81 L Hgb 10.7 L Hct 32.4 L MCV 85 MCH 28.1 MCHC 33.0 RDW 15.2 H Plt Count 159 MPV 8.7 Immature Gran % 0.4 Neutrophils % 87.9 Lymphocytes % 4.5 Monocytes % 6.9 Eosinophils % 0.2 Basophils % 0.1 Nucleated RBC % 0.0 Absolute Neutrophils 7.18 H Absolute Lymphocytes 0.37 L Absolute Monocytes 0.56 Absolute Eosinophils 0.02 Absolute Basophils 0.01 Sodium 136 Potassium 2.9 L* Chloride 100 Carbon Dioxide 25.6 Anion Gap 10.4 BUN 10 Creatinine 0.7 Est GFR (CKD-EPI 2020) 88.08 Glucose 148 H Calcium 8.6 Urine Color Cancelled Urine Clarity Cancelled Urine pH Cancelled Ur Specific [place] Cancelled Urine Protein Cancelled Urine Ketones Cancelled Urine Blood Cancelled Urine Nitrite Cancelled Urine Bilirubin Cancelled Urine Urobilinogen Cancelled Ur Leukocyte Esterase Cancelled Urine Glucose Cancelled ABO/Rh Cancelled Antibody Screen Cancelled Imaging Imaging Studies: X-ray of the pelvis shows a femoral nail transfixing a left intertrochanteric femur fracture. As for the right, there is a fracture involving the greater trochanter. No fracture line is single across the intertrochanteric region or the femoral neck. CT scan of the pelvis shows a fracture about the greater trochanter once again without obvious involvement of the intertrochanteric region or the femoral neck.
[2025-03-31] MEDS: traMADol 50 MG TAB PO (21:37)
[2025-04-01 06:54] LABS: Abs Immature Grans 0.03 10^3/uL (0.0-0.06); HCT 30.7 % (40.0-50.0); HGB 10.0 g/dL (13.5-17.5); Immature Grans % 0.5 %; MCH 27.8 pg (27.0-33.0); MCHC 32.6 % (32.0-36.0); MCV 85 fL (80-95); MPV 8.7 fL (8.0-11.0); Platelet Count 153 10^3/uL (130-400); RBC 3.60 10^6/uL (4.36-5.78); RDW 15.4 % (11.8-14.1); RDW-SD 47.7 fL; WBC 6.53 10^3/uL (4.4-10.8)
[2025-04-01 07:11] LABS: Anion Gap 10 mmol/L (3-11); BUN 18 mg/dL (9-23); CO2 25.0 mmol/L (20.0-31.0); Calcium 8.9 mg/dL (8.3-10.6); Chloride 105 mmol/L (98-107); Glucose 112 mg/dL (74-106); Potassium 3.2 mmol/L (3.5-5.1); Sodium 140 mmol/L (136-145)
[2025-04-01 07:32] VITALS: BP 138/81; PULSE 69; RESP 16; TEMP 36.8; O2SAT 94
--- NOTE | 2025-04-01 08:13 | INITIAL_ITS ---
Date of service: 04/01/25 Time of Service: 08:13 Care Management Initial Assmt Initial Assessment Reason for Hospitalization: Right Closed Greater Trochanteric Gracture Functional Status/Living Situation Patient Presentation: Merary was sitting in a recliner and appeared to be sleeping comfortably when CM met with him. He is primarily Upper Sorbian-speaking and his daughter aZhra, was present and provided information for this initial assessment. Merary resides in [place] with Zahra, whom moved in with him to assist with his care. His other daughter Elvin, also local, is involved and provides additional support. He requires assistance with his ADL's and IADL's. Family expressed desire to continue providing care for her Merary at home. Family is agreeable to [facility] RN/PT/OT services, as recommended. Due to patients limited mobility, a RCT w/c van and a lift assist will be needed to support a safe discharge. CM will follow. Town of Residence: [place] Resides with: Child (Daughter Zahra ) Significant Other/Family: Local (daughter Elvin) Natural Supports: Daughters Elvin and Zahra Employment Status: Retired Instrumental Activities of Daily Living (ADLs): Requires support (With ADL and IADLs) Physical Functioning/Mobility Assistive Device: Walker, cane, rolator Advance Directives Advance Directives: Do you have an Advance Directive: N , 14:[address] [facility]: N 01/23/19, 14:31 Date Asked 08/19/24 08/19/24, 15:38 AD Date Reviewed COLST On File at [facility] COLST Date Scanned Code Status Resuscitation Status Full Code Insurance Coverage/Financial Issues Insurance: Medicare Part A & B - [id number] Medicaid of [place] - [id number] Care Team Visit Care Team Role Provider Type Kareen Pineda APRN MD [facility] STAFF PHYSICIAN Juwan Mark, AYLA Primary Care Provider NURSE PRACTITIONER InPatient Jean Whaley Other Providers OTHER Matthew Motta MD Emergency Provider [facility] STAFF PHYSICIAN Evan Akers MD Admit Provider [facility] STAFF PHYSICIAN Attending Provider Discharge Potential Discharge Needs: PCP F/U Appt and Surgical F/U Appt (Ortho) Anticipated Barriers to Discharge: None Identified Patient/Family Education Needs: Review discharge instructions, discuss Ask Me Three Transportation: RCT RCT Transportation: Wheel chair van (With lift assist) Plan: Merary will discharge home with [facility] RN/PT/OT and resumption of caregiver support once medically ready. He will transport via RCT W/C van and require a lift assist. Patient will follow up with community providers and continue per his discharge plan of care. CM will follow. Social Determinants of Health Screening Social Determinants of health last assessed in clinic: 04/01/25 Will the Patient Participate in the Screening?: Yes Do you worry about having a steady place to live?: no Problems where you live: no known problems In the past 12 months, have you had to go without electric, gas, oil or water in your home?: no 1. Within the past 12 months, we worried whether our food would run out before we got money to buy more.: Never true 2. Within the past 12 months, the food we bought just didn't last and we didn't have money to get more.: Never true Has lack of transportation kept you from medical appointments or from doing things needed for daily living?: no Has anyone in your life made you feel unsafe or unsupported?: no How hard is it for you to pay for the very basics like food, housing, medical care, and heating? Would you say it is:: Not hard at all Do you want help finding or keeping work or a job?: I do not need or want help If for any reason you need help with day-to-day activities such as bathing, preparing meals, shopping, managing finances, etc., do you get the help you need?: I get all the help I need How often do you feel lonely or isolated from those around you?: Rarely Do you speak a language other than South Korean at home?: Yes Comments: pt speaks singaporean Health Related Social Needs Health related social needs: feeling lonely/isolated (Z60.8) and education (Z55.6) [facility] All Active Problems Left lower lobe pulmonary infiltrate (Acute) On deep vein thrombosis (DVT) prophylaxis (Acute) Closed fracture of greater trochanter of right femur (Acute) Acute hypokalemia (Acute) Trochanteric bursitis, left hip (Acute) DEPO MEDROL 02/19/25 Femur fracture (Acute) Arthritis (Acute) Bladder stone (Acute 01/27/16) removed / Central retinal vein occlusion (Acute 03/05/17) [facility] [place] (Avastin OD) Chronic atrial fibrillation (Acute 10/04/15) Hyperplasia of prostate (Acute 10/03/12) Language difficulty (Acute) Not [place] speaker Memory impairment (Acute 05/08/13) 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) Normal B12; Ulnar Eczema (Chronic) Bilateral lower legs HTN (hypertension) (Chronic) Dysuria (Acute) Stenosis of rectum and anus (Acute) Gross hematuria (Acute 01/27/16) Depression (Chronic) Fatigue (Acute) Slow heart rate (Acute) Medical History Closed left hip fracture Chest pain Contracture, left shoulder Left rotator cuff tear arthropathy Atrial fibrillation BPH (benign prostatic hyperplasia) Nasal polyp surgically removed Surgical History Intertrochanteric fracture of left femur (07/09/24) S/P IM nail fixation: 07/10/2024 Hx of cystoscopy daughter reports prostate was cleared out Hx of appendectomy S/P excision of lipoma left thigh Family History Mother , 73 Stroke Father , 40 No problems noted. Sister , 73 No problems noted. Sister , 80 Stroke Diabetes Daughter No problems noted. Daughter No problems noted. Social History Smoking/Tobacco Use Status: Former Tobacco Use tobacco type: cigarettes Quit Date: 05/21/15 Second Hand Exposure: Yes Smoking risk assessment performed?: Yes Alcohol Intake: current Alcohol Intake frequency: holidays/special occasions only Alcohol type: beer, wine and hard liquor Drug use: Never Substance use type: does not use Details: alcohol: t-1, 1/2 glass of wine Caregiver/Support person: No Housing: house Communication Needs: Language Barriers Do you need help understanding health information?: Always Pets and animals: No Sexually active: No Do you think of yourself as: straight/heterosexual What is your relationship status?: How often do you talk on the phone with friends or family?: three or more times per week How often do you get together with friends or relatives?: once per week Do you belong to any clubs or organized social groups?: no Panel score (0-1 are the most socially isolated patients): 1 What type of physical activity do you participate in: walking Duration: 15-30 minutes/day Frequency: 3-4 times per week Janae/Jain: Zoroastrian Seatbelt use: always Drive intox or ride w/intox truss driver helper: No Additional Social history: Unable to assess privatcarlene, daughter in room
[2025-04-01] MEDS: Ketorolac 15 MG/ML VIAL IVP ×2 (09:18→20:02)
[2025-04-01] MEDS: Benazepril 10 MG TAB 20 MG PO (09:20)
[2025-04-01] MEDS: Potassium Chloride 20 MEQ TABCR PO (09:20)
[2025-04-01] MEDS: Apixaban 5 MG TAB PO ×2 (09:20→20:04)
[2025-04-01] MEDS: Pantoprazole 40 MG VIAL IVP (09:20)
[2025-04-01] MEDS: Normal Saline Flush 10 ML SYR IVP ×3 (09:21→20:03)
[2025-04-01] MEDS: hydroCHLOROthiazide 25 MG TAB PO (09:26)
[2025-04-01] MEDS: traMADol 50 MG TAB PO (11:15)
--- NOTE | 2025-04-01 11:25 | PT.INIE ---
PT Notes Visit Reasons: Right Closed Greater Trochanteric Fracture Physical Therapy Inpatient Initial Evaluation Date: 04/01/2025 Referring Doctor: Kareen Pineda NP PT Orders: PT CONSULT: Eval for Assistive Device. Safety Consult For D/C. Fall Safety Assessment. Precautions: Fall. Standard. Per Dr. Rodriguez as of 03/31/2025: 6 weeks of 4-point gait, walker at all times with the knee slightly wider than hips. No adduction of the hip across the midline and no active abduction of the hip. Uses hands to assist with all weight bearing as well as rising from a chair or toilet. Patient Profile/Admitting Diagnosis: Merary is a 89-year-old male with preexisting memory impairement patient who sustained a minimally displaced intertrochateric fracture of the R hip from a fall who has been recommended for conservatve management as above. Patient is also being managed for acute hypokalemia, AF exacerbation, hyperplasia of prostate, and HTN PMHX: All Active Problems (Updated 03/31/25 @ 16:21 by Kareen Pineda APRN) On deep vein thrombosis (DVT) prophylaxis (Acute) Closed fracture of greater trochanter of right femur (Acute) Acute hypokalemia (Acute) Trochanteric bursitis, left hip (Acute) DEPO MEDROL 02/19/25 Femur fracture (Acute) Arthritis (Acute) Bladder stone (Acute 01/27/16) removed / Central retinal vein occlusion (Acute 03/05/17) [facility] [place]Avastin [place] Chronic atrial fibrillation (Acute 10/04/15) Hyperplasia of prostate (Acute 10/03/12) Language difficulty (Acute) Not [place] speaker Memory impairment (Acute 05/08/13) 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) Normal B12; Ulnar Eczema (Chronic) Bilateral lower legsHTN (hypertension) (Chronic) Dysuria (Acute) Stenosis of rectum and anus (Acute) Gross hematuria (Acute 01/27/16) Depression (Chronic) Fatigue (Acute) Slow heart rate (Acute) Medical History Closed left hip fracture Chest pain Contracture, left shoulder Left rotator cuff tear arthropathy Atrial fibrillation BPH (benign prostatic hyperplasia) Nasal polyp surgically removed Surgical History Intertrochanteric fracture of left femur (07/09/24) S/P IM nail fixation: 07/10/2024 Hx of cystoscopy daughter reports prostate was cleared out Hx of appendectomy S/P excision of lipoma left thigh Social History/Home Situation: Lives with daughter in a private home. Independent with use of SPC indoors and outdoors. Equipment Owned/DME: SPC Subjective: Per daughter, this is patient's third fall in the past 12 months. He understands and speaks very little Tajik. Daughters will be available throughout the day to hekp translate as needed. Patient complained of 0-1/10 at rest and 4/10 with weight bearing. Daughter has good understanding of orthopedic precautions recommended above. Denide headache, chest pain, and lightheadedness throughout session. Per Nurse Rosado, patient has pain medications prior to PT visit. Objective: General Observation: Daughter was present in room throughout session. Patient resting in bed in semi-schaefer's position. Mental Status: Alert and oriented as to person, place, time, and purpose. Able to pay attention, focus, and respond appropriately. Pain: As above Vital Signs: Closely monitored by nursing staff ROM: Right Lower Extremity: Hip flexion allowed up to 80 degrees in supine with pain at end of range. Hip abduction not tested per recommendation of orthopod. Knee flexion WFL. Ankle dorsiflexion WFL. Ankle plantarflexion WFL. Left Lower Extremity: Hip flexion WFL. Hip abduction WFL. Knee flexion WFL. Ankle dorsiflexion WFL. Ankle plantarflexion WFL. Strength: Right Lower Extremity: Hip flexors 3-/5. Hip abductors 3-/5. Knee flexors 4-/5. Knee extensors 4-/5. Ankle dorsiflexors 4-/5. Ankle plantarflexors 4-/5. Left Lower Extremity: Hip flexors 4-/5. Hip abductors 4-/5. Knee flexors 4-/5. Knee extensors 4-/5. Ankle dorsiflexors 4-/5. Ankle plantarflexors 4-/5. Bed Mobility/Transfers: Minimal verbal cueing provided with daughter full translating all instructions with great result for use of B hands as needed for support, movement sequence, AD management, and posture to reduce fall risk and minimize pain report. Rolling with minimal assist cues for safe/correct technique Supine to sit minimal assist to upper back Sit to stand with contact guard assist of 2 with FWW Stand to sit with contact guard assist with FWW Bed to reclining chair contact guard assist with FWW Gait: 50 feet with contact guard assit of PT and wheelchair follow of Nurse Skip for the first half of the walk and of Nurse Ashlee for the socnd half. Minimal cueing provided for hand placement, limb movement sequence, AD management, and posture ensuring that B knees are as wide as the hips. Reported pain in the R hip at 4-5/10 that subsided with rest. Stairs: To be assessed in [facility] next session Balance: Static Sitting: Normal Dynamic Sitting: Normal Static Standing: Fair Dynamic Standing: Fair Special Tests: Mobility Limitations Standardized Measure [facility] AM-PAC 6 clicks Basic Mobility Inpatient Short Form: Raw Score: 17 CMS Score: 51% deficit Informed Consent/Education: Patient was instructed in purpose of PT consult and plan of care. Agreeable to proceed with established PT POC to achieve personal goals. Assessment: Patient able to follow single to double step commands that were translated by her daughter who was present throughout the session today. With pain level managed, patient is able to execute mobility ADL tasks safely with use of FWW and is very motivated to get better while slowly working through the pain. He will benefit from PT services to address impairments in strength, balance, and movement performance to reduce fall risk at home. Daughter expressed that the patient will have needed supervision between herself and her sister for all of their father's needs. Patient presents with clinical signs and symptoms consistent with current/admitting diagnoses that have resulted to mobility limitations, gait instability, generalized weakness, and overall ADL decline as demonstrated by the following impairment level findings: 1. Decreased strength to L LE hip and knee muscle groups 2. Impaired standing balance 3. Impaired activity tolerance 4. Limitation of joint range of motion in R hip 5. Pain in R hip Impairments are contributing to the following functional limitations: 1. Decline in bed mobility skills 2. Decline in transfer skills 3. Difficulty with ambulation without assistive device and physical assistance 4. Increased completion time for mobility ADL performance 5. Increased risk for falls 6. Difficulty with managing steps alone safely Patient is assessed as a 81344 moderate complexity based on the following: History: 89-year-old male with past medical history as indicated above Examination: Demonstrable impairment in strength, balance, and mobility level with underlying impairments and functional limitations as exhibited above as well as deficit score of 51% utilizing the [facility] Mobility Inpatient Short Form Presentation: Evolving Decision Makin moderate complexity Goals: Goals X1 week 1. Supine-Sit independent 2. Sit-Supine independent 3. Sit-Stand independent 4. Stand-Sit independent with FWW 5. Bed-Chair independent with FWW 6. Chair-Bed independent with FWW 7. Independent gait on level surface with use of FWW for at least 300 feet without report of pain nor dyspnea 8. Independent stair negotiation while holding onto B rails for at least 3 steps without report of pain nor dyspnea 9. Independent with home exercise program 10. Good static and dynamic standing balance/tolerance Plan of Care/Treatment Plan: 1-2x/day, 7 days/week x 1 week. Plan of care has been reviewed with the MONOTYPE CASTER providing the service under Physical Therapy direction. Initiate Physical Therapy intervention for pain management as needed, strengthening, bed mobility, transfers, gait, stairs, balance training, and use of assistive device. DISCHARGE RECOMMENDATIONS: Patient will benefit from home health PT services in order to progress mobility level using FWW, assess home safety, identify additional equipment needs, and establish a functional maintenance program that will increase ability of patient to remain at home. TREATMENT CODE/TIME: 26784 x 28 minutes for 1 unit (11:25-11:53). Thank you for the opportunity to participate in the care of this patient. Conchis Hicks PT, DPT, CLT [facility] [place], [place]
--- NOTE | 2025-04-01 11:29 | PHA.REVIEW2 ---
Pharmacy Admission Review Admission Clinical Review Admission Pharmacy Review: Left lower lobe pulmonary infiltrate (Acute) On deep vein thrombosis (DVT) prophylaxis (Acute) Closed fracture of greater trochanter of right femur (Acute) Acute hypokalemia (Acute) Chronic atrial fibrillation (Acute 10/04/15) Hyperplasia of prostate (Acute 10/03/12) Language difficulty (Acute) Memory impairment (Acute 05/08/13) acetaminophen (From Tylenol) Allergy (Verified 03/16/25 16:03) Itching Resuscitation Status Full Code Height 5 ft 2 in Weight 80.9 kg Pharmacy Admission Review Renal Dosing Renal Dosing: BUN 18 mg/dL (9-23) 04/01/25 06:35 Creatinine 0.9 mg/dL (0.73-1.18) 04/01/25 06:35 Medications needing adjustments: Reviewed (CrCl 46.12 mL/min) List of meds needing interventions: Current medications are okay Anticoagulation Anticoagulation: Hgb 10.0 g/dL (13.5-17.5) L 04/01/25 06:35 Hct 30.7 % (40.0-50.0) L 04/01/25 06:35 Plt Count 153 10^3/uL (130-400) 04/01/25 06:35 Creatinine 0.9 mg/dL (0.73-1.18) 04/01/25 06:35 DVT Prophylaxis: Reviewed Medications: Apixaban (5mg BID) Opiate Usage Evaluate Pain Scale/Pains Meds: Reviewed (hydromorphone 0.5mg IVP q4h PRN - no doses given, hydromorphone 2mg PO q4h PRN - no doses given) Scheduled Bowel Reg ordered if on Opiates?: No (PRN Miralax) Relevant Labs Relevant Labs: Sodium 140 mmol/L (136-145) 04/01/25 06:35 Potassium 3.2 mmol/L (3.5-5.1) L 04/01/25 06:35 Chloride 105 mmol/L (98-107) 04/01/25 06:35 Electrolytes, C-Reactive P, ESR: Reviewed (potassium increased from 2.9) Cardiac Review BP, HR, EF%: Reviewed (BP and HR WNL) List meds needing interventions: Has orders for benazepril 20mg daily and HCTZ 25mg daily QTc Review QTc: Reviewed (497 from 03/31/25) IV to PO Switch IV Medications: Intervened (Asked provider if pantoprazole could be changed from IV to PO - provider was okay with this) Home Meds Home Med List reviewed: Reviewed Relevent Home Meds Not ordered & why?: vitamin D3, latanoprost, triamcinolone cream and vitamin E Current Meds Current Medication Order Review: Reviewed
[2025-04-01] MEDS: HYDROmorphone 2 MG TAB PO (14:31)
--- NOTE | 2025-04-01 14:59 | PGE_ITS ---
Date of Service Date of service: 04/01/25 Time of Service: 11:35 Assessment and Plan Assessment and plan (1) Closed fracture of greater trochanter of right femur: Status: Acute Assessment and plan: As per imaging in the ED s/p fall Non-operable as per orthopedic consult Pain management with acetaminophen scheduled, PRN ketorolac , PRN PO hydromorphone - family is reluctant to opioid use- none given on the floor Orthopedic consult: Please read notes - Best treatment recommendation: 6 weeks of 4-point gait, walker at all times with the knee slightly wider than hips. - No adduction of the hip across the midline and no active abduction of the hip. - Continue to hands to assist with all weightbearing as well as rising from a chair or toilet. - No serial x-rays - follow-up in orthopedics in 6 weeks. Ongoing PT Family plan to take the patient home in 24 - 48 hours - PT at d/c (2) Acute hypokalemia: Status: Acute Assessment and plan: Supplemented BMP (3) Chronic atrial fibrillation: Status: Acute Assessment and plan: No tachyarrhytmia as per VS and seems to be rate controlled w/o anti- arrhythmic/ AV blocking agent drugs Ongoing home dose Eliquis (4) Hyperplasia of prostate: Status: Acute Assessment and plan: Ongoing home regimen with CIC q. weekly on Sunday (5) Memory impairment: Status: Acute Assessment and plan: No exacerbation - at baseline (6) HTN (hypertension): Status: Chronic Assessment and plan: Continue home medicine regimen and adjust as per guidelines (7) Language difficulty: Status: Acute Assessment and plan: Not a yurok liberian speaker, the patient speaks tree other languages Gibraltarian learned at her older age and can understand part of the conversation Considered official insurance application investigator services but family had declined as one of the 2 daughters is always present in the day- time consider using as needed or for consents (8) On deep vein thrombosis (DVT) prophylaxis: Status: Acute Assessment and plan: on eliquis for atrial fibrillation - not other pharmacological agent needed Discussed with Dr. Akers Subjective Subjective Patient reports: no new complaints, pain is less, tolerating liquids well, tolerating a regular diet, voiding w/o difficulty and no bowel movement (last 03/31); denies diarrhea, nausea, vomiting, shortness of breath or fever Exam Narrative Exam Narrative: 89-year-old male looking of stated age, alert to self place and year: Ongoing ch ronic impairment, no acute focal neurological deficit, unlabored breathing clear lungs, S1-S2 irregular, chronic murmur PPP x 4, abdomen is nondistended soft nontender,diminished ROM to right lower extremity due to pain on mobilization, no external rotation, no edema noted Objective Last Vital Signs Temp 36.8 C 04/01/25 07:32 Pulse 69 04/01/25 07:32 Resp 16 04/01/25 07:32 BP 138/81 04/01/25 07:32 Pulse Ox 94 04/01/25 07:32 Laboratory Results - last 24 hr 04/01/25 06:35 WBC 6.53 RBC 3.60 L Hgb 10.0 L Hct 30.7 L MCV 85 MCH 27.8 MCHC 32.6 RDW 15.4 H Plt Count 153 MPV 8.7 Immature Gran % 0.5 Neutrophils % 69.9 Lymphocytes % 14.1 Monocytes % 11.2 Eosinophils % 4.0 Basophils % 0.3 Nucleated RBC % 0.0 Absolute Neutrophils 4.57 Absolute Lymphocytes 0.92 L Absolute Monocytes 0.73 Absolute Eosinophils 0.26 Absolute Basophils 0.02 Sodium 140 Potassium 3.2 L Chloride 105 Carbon Dioxide 25.0 Anion Gap 10 BUN 18 Creatinine 0.9 Est GFR (CKD-EPI 2020) 82.51 Glucose 112 H Calcium 8.9 Time Spent with Patient Time Spent with Patient: >50 minutes Time was spent: preparing to see the patient(eg.review tests), obtaining and/or reviewing separately otained hiistory, ordering medications,tests, procedures, referring, communicating with other health healthcare network consultant, indepentently interpreting results, counseling the patient, care coordination and other
--- NOTE | 2025-04-01 15:20 | PTTR_ITS ---
PT Notes Visit Reasons: Right Closed Greater Trochanteric Fracture Physical Therapy Inpatient Treatment Note Date: 04/01/2025 Precautions: Fall. Standard. Per Dr. Rodriguez as of 03/31/2025: 6 weeks of 4-point gait, walker at all times with the knee slightly wider than hips. No adduction of the hip across the midline and no active abduction of the hip. Uses hands to assist with all weight bearing as well as rising from a chair or toilet. Subjective: Daughters are concerned about being able to manage pain at home. They worry that pain can get out of control and they would not know what to do. Agreeable to PT for their father as soon as he is discharged to home. Objective: General Observation: Another daughter was present in room throughout session. Patient resting seated on bedside recliner. Mental Status: Alert and oriented as to person, place, time, and purpose. Able to pay attention, focus, and respond appropriately. Pain: As above Vital Signs: Closely monitored by nursing staff Bed Mobility/Transfers: Minimal verbal cueing provided with daughter full translating all instructions with great result for use of B hands as needed for support, movement sequence, AD management, and posture to reduce fall risk and minimize pain report. Sit to stand with contact guard assist of 2 with FWW Stand to sit with contact guard assist with FWW Wheelchair to edge of bed minimal assist with FWW Sit to supine moderate assist of 2 Scoot up in bed moderate assist of 2 Gait: 25 feet with contact guard assist of PT and wheelchair follow of daughter. Reported pain in the R hip at 5-6/10 that limited distance walked. Gait antalgic with L swing phase decreased due to pain in R hip. Nurse Ashlee was updated of pain level and asked about a pil for breakthrough pain. Minimal cueing provided for hand placement, limb movement sequence, AD management, and posture ensuring that B knees are as wide as the hips. Stairs: Deferred THERA EX: One-on-one instruction given to patient and to daughter about safe and slow performance of seated exercises-- Gluteal sets x 5 Quads sets x 5 Ankle pumps x 5 Adductor squeezes x 5 Balance: Static Sitting: Normal Dynamic Sitting: Normal Static Standing: Fair Dynamic Standing: Fair Assessment: Another daughter came in today to facilitate conversation with patient and safe mobility performance. Pain level crept up to 5-6/10 after walking a shorter distance of 30 feet as opposed to 50 feet + 50 feet this morning. Patient also requested to rest in bed as he has been sitting on the chair for too long. Highly beneficial to pre-medicate patient for pain for all PT sessions. Daughters will be primary caregivers for patient and will require training with safe mobility performance bfore patient leaves. Plan of Care/Treatment Plan: 1-2x/day, 7 days/week x 1 week. Plan of care has been reviewed with the CAMPGROUND CLEANING ATTENDANT providing the service under Physical Therapy direction. Initiate Physical Therapy intervention for pain management as needed, strengthening, bed mobility, transfers, gait, stairs, balance training, and use of assistive device. --Pre-medicate for pain --Ensure that caregiver education is provided about mobility performance each session DISCHARGE RECOMMENDATIONS: Patient will benefit from home health PT services in order to progress mobility level using FWW, assess home safety, identify additional equipment needs, and establish a functional maintenance program that will increase ability of patient to remain at home. TREATMENT CODE/TIME: 46610 x 39 minutes for 3 unit (15:20-15:59).
[2025-04-01] MEDS: Potassium Chloride 20 MEQ TABCR 40 MEQ PO (15:59)
[2025-04-01] MEDS: HYDROmorphone 2 MG/ML SYR 1 MG IVP (16:06)
[2025-04-01 19:50] VITALS: BP 185/113; PULSE 85; RESP 16; TEMP 36.6; O2SAT 96
[2025-04-01] MEDS: Atorvastatin 40 MG TAB PO (20:03)
[2025-04-01] MEDS: Latanoprost 0.005% 2.5 ML BTL OP (20:04)
[2025-04-01 21:00] VITALS: BP 161/92
[2025-04-02] MEDS: Ketorolac 15 MG/ML VIAL IVP (06:20)
[2025-04-02] MEDS: Normal Saline Flush 10 ML SYR IVP ×3 (06:21→20:37)
[2025-04-02 06:35] LABS: Abs Immature Grans 0.02 10^3/uL (0.0-0.06); HCT 33.8 % (40.0-50.0); HGB 10.9 g/dL (13.5-17.5); Immature Grans % 0.3 %; MCH 27.7 pg (27.0-33.0); MCHC 32.2 % (32.0-36.0); MCV 86 fL (80-95); MPV 9.0 fL (8.0-11.0); Platelet Count 161 10^3/uL (130-400); RBC 3.94 10^6/uL (4.36-5.78); RDW 15.4 % (11.8-14.1); RDW-SD 48.3 fL; WBC 5.98 10^3/uL (4.4-10.8)
[2025-04-02 07:16] LABS: Magnesium 1.6 mg/dL (1.6-2.6)
[2025-04-02 07:17] LABS: Anion Gap 5.7 mmol/L (3-11); BUN 17 mg/dL (9-23); CO2 27.3 mmol/L (20.0-31.0); Calcium 8.9 mg/dL (8.3-10.6); Chloride 103 mmol/L (98-107); Glucose 99 mg/dL (74-106); Potassium 3.2 mmol/L (3.5-5.1); Sodium 136 mmol/L (136-145)
[2025-04-02 07:32] VITALS: BP 153/96; PULSE 65; RESP 17; TEMP 36.6; O2SAT 96
[2025-04-02] MEDS: Cholecalciferol (Vitamin D3) 1,000 UNIT TAB 2000 UNITS PO (08:20)
[2025-04-02] MEDS: traMADol 50 MG TAB PO ×2 (08:20→22:29)
[2025-04-02] MEDS: Apixaban 5 MG TAB PO ×2 (08:20→20:37)
[2025-04-02] MEDS: Benazepril 10 MG TAB 20 MG PO (08:20)
[2025-04-02] MEDS: Pantoprazole 40 MG TABCR PO (08:20)
[2025-04-02] MEDS: hydroCHLOROthiazide 25 MG TAB PO (08:21)
[2025-04-02] MEDS: Potassium Chloride 20 MEQ TABCR PO (08:21)
--- NOTE | 2025-04-02 08:25 | PDOC.CMDIS ---
Date of service: 04/02/25 Time of Service: 08:25 Care Management Discharge SDOH Health Related Social Needs: Health related social needs lonely/isolated education
--- NOTE | 2025-04-02 09:29 | PT.INTREAT ---
PT Notes Visit Reasons: Right Closed Greater Trochanteric Fracture Physical Therapy Inpatient Treatment Note Date: 04/02/2025 Precautions: Fall. Standard. Per Dr. Rodriguez as of 03/31/2025: 6 weeks of 4-point gait, walker at all times with the knee slightly wider than hips. No adduction of the hip across the midline and no active abduction of the hip. Uses hands to assist with all weight bearing as well as rising from a chair or toilet. Subjective: Confidence level of patient with walking and transferring improving. Pain in R buttock is felt mostly during getting up and sitting down. Patient and family appreciatesdcoordination of pain pill intake with therapy so pain is not a barrier to movement. Denied headache, chest pain, and lightheadedness for both sessions today. Daughter translated for PT for both sessions which made sessions more meaningful for patient. Objective: General Observation: R hip and gluteal area ecchymoses starting to felicita. Seated on recliner in the morning, was resting in bed in the afternoon when PT came in. Mental Status: Alert and oriented as to person, place, time, and purpose. Able to pay attention, focus, and respond appropriately. Pain: Crept up to 5/10 when he sat down to rest for both sessions Vital Signs: Closely monitored by nursing staff Bed Mobility/Transfers: Minimal verbal cueing provided with daughter full translating all instructions with great result for use of B hands as needed for support, movement sequence, AD management, and posture to reduce fall risk and minimize pain report. Sit to stand with contact guard assist with FWW, sit to stand from wheelchair minimal assist after walking about 275 feet Stand to sit with contact guard assist with FWW Wheelchair to edge of bed with contact guard assist with FWW Sit to supine stand by assist while pulling on L bed rail Gait: In the AM, 200 feet with contact guard assist of PT and wheelchair follow of ravi using FWW with one seated rest. In the PM, 250 feet with stand by assist and wheelchair follow of daughter using FWW with one seated rest Reported pain in the R hip at 5/10 that limited distance walked. Gait antalgic with L swing phase decreased due to pain in R hip. Nurse Ashlee was updated of pain level and asked about a pil for breakthrough pain. Minimal cueing provided for hand placement, limb movement sequence, AD management, and posture ensuring that B knees are as wide as the hips. Stairs: In the morning, facilitated up and down 4 x 6-inch steps while holding onto B rails for support. Minimal verbal cueing for limb movement sequence, weight distribution through B UE and LE to optimize off loading the R hip, and for incraeased flexion at the R hip and knee during each ascent. THERA EX: One-on-one instruction given to patient and to daughter about safe and slow performance of seated exercises-- Gluteal sets x 5 Quads sets x 5 Ankle pumps x 5 Adductor squeezes x 5 Balance: Static Sitting: Normal Dynamic Sitting: Normal Static Standing: Fair Dynamic Standing: Fair Assessment: Level of independence improving, needed less physical assistance today. Sit<>stand movement transitions where gluteal muscle pull at insertion is high tend to result to more report of pain. Patient and daughter were educated on the value of using B arms for support and scooting forward onto edge of chair for more efficient body mechanics and less strain on B gluteal muscles. Will continue to coordinate with nurse fore premedication for pain to optimize session performance. Continues to require services for functional mobility progression and fall reduction. Plan of Care/Treatment Plan: 1-2x/day, 7 days/week x 1 week. Plan of care has been reviewed with the VISCOSE CELLAR CHARGE HAND providing the service under Physical Therapy direction. Initiate Physical Therapy intervention for pain management as needed, strengthening, bed mobility, transfers, gait, stairs, balance training, and use of assistive device. --Pre-medicate for pain --Ensure that caregiver education is provided about mobility performance each session DISCHARGE RECOMMENDATIONS: Patient will benefit from home health PT services in order to progress mobility level using FWW, assess home safety, identify additional equipment needs, and establish a functional maintenance program that will increase ability of patient to remain at home. TREATMENT CODE/TIME: Session 1--16627 x 30 minutes for 2 units, 55448 x 17 minutes for 1 unit (9:29-10:16). Session 2--17012 x 30 minutes for 2 units (13:56-14:26).
--- NOTE | 2025-04-02 09:36 | W.PM.PROGNOT ---
Date of Service Date of service: 04/02/25 Time of Service: 09:36 Assessment and Plan Assessment and plan (1) Closed fracture of greater trochanter of right femur: Status: Acute Assessment and plan: As per imaging in the ED s/p fall Non-operable as per orthopedic consult Pain management with acetaminophen trial then scheduled, PRN ketorolac transitioned to celebrex , PRN PO hydromorphone discontinued only used tramadol - family is reluctant to opioid use- minimally given on the floor Orthopedic consult: Seen by Dr Collins -Please read notes -Recommendation for 2-view right hip XR if ongoing pain with weightbearing as seen on previous day - Best treatment recommendation: 6 weeks of 4-point gait, walker at all times with the knee slightly wider than hips. - No adduction of the hip across the midline and no active abduction of the hip. - Continue to hands to assist with all weightbearing as well as rising from a chair or toilet. - No serial x-rays - follow-up in orthopedics in 6 weeks. Ongoing PT: Has stairs at home Family plan to take the patient home in 24 - 48 hours - PT at d/c (2) Acute hypokalemia: Status: Acute Assessment and plan: Supplemented BMP (3) Chronic atrial fibrillation: Status: Acute Assessment and plan: Rate control w/o AV blocking agents on home medicine regimen list - fully anticoagulated on Eliquis On home dose Eliquis (4) Hyperplasia of prostate: Status: Acute Assessment and plan: Ongoing home regimen with [facility] q. weekly on Sunday- voids w/o difficulty (5) Memory impairment: Status: Acute Assessment and plan: As per history, no exacerbation - remains at baseline (6) HTN (hypertension): Status: Chronic Assessment and plan: Ongoing home medicine regimen and adjust as per guidelines (7) Language difficulty: Status: Acute Assessment and plan: non- [place] indonesian speaker, but able to communicate discomfort - the patient speaks tree other languages Macedonian learned at her older age and can understand part of the conversation Considered official lang interpreter services but family had declined as one of the 2 daughters is always present in the day- time consider using as needed or for medical consent forms or procedures (8) On deep vein thrombosis (DVT) prophylaxis: Status: Acute Assessment and plan: on eliquis for atrial fibrillation - pharmacological agent not required Discussed with Dr. Akers Subjective Subjective Patient reports: no new complaints, feels better, pain is less, tolerating liquids well, tolerating a regular diet, voiding w/o difficulty and no bowel movement; denies diarrhea, nausea, vomiting, shortness of breath or fever Exam Narrative Exam Narrative: 89-year-old male appering of stated age, alert to self place and year: Ongoing chronic memory impairment w/o exacerbation, no acute focal neurological deficit, unlabored breathing clear lungs, S1-S2 irregular, PPP x 4, abdomen is nondistended soft nontender, minimal pain on right knee flexion, no external rotation, no edema noted Objective Last Vital Signs Temp 36.6 C 04/02/25 07:32 Pulse 65 04/02/25 07:32 Resp 17 04/02/25 07:32 BP 153/96 H 04/02/25 07:32 Pulse Ox 96 04/02/25 07:32 Laboratory Results - last 24 hr 04/02/25 06:09 WBC 5.98 RBC 3.94 L Hgb 10.9 L Hct 33.8 L MCV 86 MCH 27.7 MCHC 32.2 RDW 15.4 H Plt Count 161 MPV 9.0 Immature Gran % 0.3 Neutrophils % 66.9 Lymphocytes % 17.1 Monocytes % 10.0 Eosinophils % 5.4 Basophils % 0.3 Nucleated RBC % 0.0 Absolute Neutrophils 4.00 Absolute Lymphocytes 1.02 L Absolute Monocytes 0.60 Absolute Eosinophils 0.32 Absolute Basophils 0.02 Sodium 136 Potassium 3.2 L Chloride 103 Carbon Dioxide 27.3 Anion Gap 5.7 BUN 17 Creatinine 0.7 L Est GFR (CKD-EPI 2020) 101.03 Glucose 99 Calcium 8.9 Magnesium 1.6 Time Spent with Patient Time Spent with Patient: >50 minutes Time was spent: preparing to see the patient(eg.review tests), obtaining and/or reviewing separately otained hiistory, ordering medications,tests, procedures, referring, communicating with other health skin care instructor, indepentently interpreting results, counseling the patient, care coordination and other
[2025-04-02] MEDS: ACETAMINOPHEN 1,000 MG/100 ML BAG 400 MG IVPB (10:11)
[2025-04-02] MEDS: Celecoxib 100 MG CAP PO ×2 (10:11→20:37)
[2025-04-02] MEDS: Docusate Sodium 100 MG CAP PO ×3 (10:11→20:37)
[2025-04-02] MEDS: Polyethylene Glycol 3350 17 GM PACKET PO (10:11)
--- NOTE | 2025-04-02 10:28 | PGE_ITS ---
Date of Service Date of service: 04/02/25 Time of Service: 09:45 Assessment and Plan Assessment and plan (1) Closed fracture of greater trochanter of right femur: Status: Acute Assessment and plan: Merary has a fracture of the right greater trochanter. He is making improvements and the pain he is having is to be expected with activation of the abductors. At this point he will need six weeks of protectd 4-point weight bearing with a walker and no active abduction or no cross-body adduction. F/U in 6 weeks. Subjective Subjective Interval history since last seen: Merary is actually doing okay this morning. He had an increase in pain yesterday with ambulation. However, he feels much better this morning. Exam Narrative Exam Narrative: Resting in the bed. Comfortable. RLE with some pain to palpation of the trochanter. No pain with passive ER/IR/Flex. +ADF/APF/EHL/FHL Objective Last Vital Signs Temp 36.6 C 04/02/25 07:32 Pulse 65 04/02/25 07:32 Resp 17 04/02/25 07:32 BP 153/96 H 04/02/25 07:32 Pulse Ox 96 04/02/25 07:32 Laboratory Results - last 24 hr 04/02/25 06:09 WBC 5.98 RBC 3.94 L Hgb 10.9 L Hct 33.8 L MCV 86 MCH 27.7 MCHC 32.2 RDW 15.4 H Plt Count 161 MPV 9.0 Immature Gran % 0.3 Neutrophils % 66.9 Lymphocytes % 17.1 Monocytes % 10.0 Eosinophils % 5.4 Basophils % 0.3 Nucleated RBC % 0.0 Absolute Neutrophils 4.00 Absolute Lymphocytes 1.02 L Absolute Monocytes 0.60 Absolute Eosinophils 0.32 Absolute Basophils 0.02 Sodium 136 Potassium 3.2 L Chloride 103 Carbon Dioxide 27.3 Anion Gap 5.7 BUN 17 Creatinine 0.7 L Est GFR (CKD-EPI 2020) 101.03 Glucose 99 Calcium 8.9 Magnesium 1.6 Time Spent with Patient Time Spent with Patient: <25 minutes Time was spent: preparing to see the patient(eg.review tests), obtaining and/or reviewing separately otained hiistory, referring, communicating with other health behavioral health care manager and counseling the patient
[2025-04-02 11:34] VITALS: BP 151/81; PULSE 70; RESP 17; TEMP 36.6; O2SAT 97
[2025-04-02] MEDS: Potassium Chloride 20 MEQ TABCR 40 MEQ PO (12:40)
[2025-04-02] MEDS: Acetaminophen 500 MG TAB 1000 MG PO (17:03)
[2025-04-02 19:53] VITALS: BP 112/79; PULSE 71; RESP 16; TEMP 36.8; O2SAT 95
[2025-04-02] MEDS: Atorvastatin 40 MG TAB PO (20:37)
[2025-04-02] MEDS: Latanoprost 0.005% 2.5 ML BTL OP (20:45)
[2025-04-03] MEDS: Acetaminophen 500 MG TAB 1000 MG PO ×3 (01:24→20:48)
[2025-04-03] MEDS: MORPHine 2 MG/ML SYR IVP (03:10)
[2025-04-03 07:25] VITALS: BP 164/91; PULSE 61; RESP 16; TEMP 36.5; O2SAT 95
--- NOTE | 2025-04-03 08:14 | PDOC.CMDIS ---
Date of service: 04/03/25 Time of Service: 08:14 LACE Index Scoring Tool Questions: Length of Stay (in days): 3 Was the patient admitted via the E.D.?: Yes E.D. Visits: 2 Answers: Total Score: 8 Risk of Readmission: Low Risk Care Management Discharge Plan Reason for Hospitalization: Right Closed Greater Trochanteric Fracture Discharge Plan: Merary is being discharged home with [facility] RN/PT/OT via [facility] w/c van with lift assist. Patient will follow up with community providers and continue per her discharge plan of care as directed. Patient/Family Education Needs: Review discharge instructions and plan to follow up after discharge. Discuss ask me three. Services Needed at Discharge: Home Health Care Services ([facility] RN/PT/OT, coordinated by DERREK) and Transportation ([facility] w/c van with lift assist coordinated by CM) SDOH Health Related Social Needs: Health related social needs lonely/isolated education
--- NOTE | 2025-04-03 08:26 | PT.INTREAT ---
PT Notes Visit Reasons: Right Closed Greater Trochanteric Fracture Physical Therapy Inpatient Treatment Note Date: 04/03/2025 Precautions: Fall. Standard. Per Dr. Rodriguez as of 03/31/2025: 6 weeks of 4-point gait, walker at all times with the knee slightly wider than hips. No adduction of the hip across the midline and no active abduction of the hip. Uses hands to assist with all weight bearing as well as rising from a chair or toilet. Subjective: Pain in R buttock is felt mostly during getting up and sitting down, walking did not increase pain for this session. Patient was sleeping earlier and has not taken her morning shift medication as Nurse Jayden did not want to wake him up early. Patient and daughter were both agreeable to work slowly as he has not taken any pain pills yet. Denied headache, chest pain, and lightheadedness for both sessions today. Daughter translated for PT for this session which made session more meaningful for patient. Daughter added that patient walked again last night after supper. Objective: General Observation: R hip and gluteal area ecchymoses starting to felicita. Daughter present in room to translate judiciously. Mental Status: Alert and oriented as to person, place, time, and purpose. Able to pay attention, focus, and respond appropriately. Pain: Crept up to 5/10 when he sat down onto treatment plinth after walking from room 208 to therapy room Vital Signs: Closely monitored by nursing staff Bed Mobility/Transfers: Minimal verbal cueing provided with daughter full translating all instructions with great result for use of B hands as needed for support, movement sequence, AD management, and posture to reduce fall risk and minimize pain report. Sit to stand with contact guard assist with FWW Stand to sit with contact guard assist with FWW Wheelchair to edge of bed with contact guard assist with FWW Sit to supine stand by assist while pulling on L bed rail Gait: 200 feet with stand by assist of PT and wheelchair follow of daughter using FWW with no seated rest needed. No pain reported during walking. Increased and almost symmetrical step length and height through stance and swing phases. Occasional cueing only for walker management as he is becoming more aware of maintaining appropriate distance from walker thorughout the walk. Minimal cueing to maintain B knees slightly wider than the hips with walking. Stairs: Increasing indepednence and mastery with negotiation of 6 x 4-inch steps and 4 x 6-inch steps while holding onto B rails for support. Minimal verbal cueing for: limb movement sequence, weight distribution through B UE and LE to optimize off loading the R hip,for increased flexion at the R hip and knee during, and more controlled descent of R LE each ascent. No report of increased pain throughout. THERA EX: reinforced performance with daughter of the following exercises every two hours while on the chair or in bed-- Gluteal sets x 5 Quads sets x 5 Ankle pumps x 5 Adductor squeezes x 5 Balance: Static Sitting: Normal Dynamic Sitting: Normal Static Standing: Fair Dynamic Standing: Fair Assessment: Patient's self-reliance improving, pain tolerance increasing as patient was able to participate before he could take his morning pain medication. Needed less physical assistance today at stand by assist. Sit<>stand movement transitions where gluteal muscle pull at insertion is high continue to cause more report of short-lived pain. Daughter was also educated on safe techniques while watching bed mobiity, transfers and ambualtion task performance. Also emphasized safe cueing for hand placement and movement precautions compliance. Will continue to coordinate with nurse for premedication for pain to optimize session performance. Continues to require services for functional mobility progression and fall reduction. Plan of Care/Treatment Plan: 1-2x/day, 7 days/week x 1 week. Plan of care has been reviewed with the VP DIRECTOR OF FINANCE providing the service under Physical Therapy direction. Initiate Physical Therapy intervention for pain management as needed, strengthening, bed mobility, transfers, gait, stairs, balance training, and use of assistive device. --Pre-medicate for pain --Ensure that continued caregiver education is provided about mobility performance each session DISCHARGE RECOMMENDATIONS: Patient will benefit from home health PT services in order to progress mobility level using FWW, assess home safety, identify additional equipment needs, and establish a functional maintenance program that will increase ability of patient to remain at home. TREATMENT CODE/TIME: 23992 x 42 minutes for 3 units (7:38-08:10).
[2025-04-03 08:53] LABS: Abs Immature Grans 0.02 10^3/uL (0.0-0.06); HCT 33.1 % (40.0-50.0); HGB 10.9 g/dL (13.5-17.5); Immature Grans % 0.3 %; MCH 28.0 pg (27.0-33.0); MCHC 32.9 % (32.0-36.0); MCV 85 fL (80-95); MPV 8.8 fL (8.0-11.0); Platelet Count 162 10^3/uL (130-400); RBC 3.89 10^6/uL (4.36-5.78); RDW 15.5 % (11.8-14.1); RDW-SD 47.8 fL; WBC 5.97 10^3/uL (4.4-10.8)
[2025-04-03 09:10] LABS: Anion Gap 10.3 mmol/L (3-11); BUN 16 mg/dL (9-23); CO2 26.7 mmol/L (20.0-31.0); Calcium 9.2 mg/dL (8.3-10.6); Chloride 102 mmol/L (98-107); Glucose 158 mg/dL (74-106); Potassium 3.4 mmol/L (3.5-5.1); Sodium 139 mmol/L (136-145)
[2025-04-03] MEDS: Cholecalciferol (Vitamin D3) 1,000 UNIT TAB 2000 UNITS PO (09:53)
[2025-04-03] MEDS: Potassium Chloride 20 MEQ TABCR PO (09:53)
[2025-04-03] MEDS: Celecoxib 100 MG CAP PO ×2 (09:53→20:48)
[2025-04-03] MEDS: Pantoprazole 40 MG TABCR PO (09:54)
[2025-04-03] MEDS: Docusate Sodium 100 MG CAP PO ×3 (09:54→20:48)
[2025-04-03] MEDS: Benazepril 10 MG TAB 20 MG PO (09:54)
[2025-04-03] MEDS: hydroCHLOROthiazide 25 MG TAB PO (09:54)
[2025-04-03] MEDS: Apixaban 5 MG TAB PO ×2 (09:54→20:48)
[2025-04-03] MEDS: Normal Saline Flush 10 ML SYR IVP ×2 (09:55→20:49)
[2025-04-03] MEDS: Polyethylene Glycol 3350 17 GM PACKET PO ×2 (10:27→15:10)
[2025-04-03] MEDS: Potassium Chloride 20 MEQ TABCR 40 MEQ PO (10:53)
--- NOTE | 2025-04-03 10:59 | W.NUTRFU ---
Nutrition Note NOTE: 89, M. Height: 158 cm. Weight: 81 kg. BMI: 32.6 kg/m^2. IBW: 55 kg. Weight appears steady. Patient initially presented with hypokalemia. Potassium was recorded low at 3.4 L on 04/03/25, but has shown an upward trajectory from the low of 2.9 L on 03/31/25. A high blood glucose level of 158 was recorded on 04/03/25. A low hgb level of 10.9 was recorded on 04/03/25.
--- NOTE | 2025-04-03 14:23 | W.PM.DS.N ---
Date of service: 04/03/25 Time of Service: 14:23 DS: Diagnosis Discharge Diagnosis (1) Closed fracture of greater trochanter of right femur: Status: Acute (2) Acute hypokalemia: Status: Acute (3) Chronic atrial fibrillation: Status: Acute (4) Hyperplasia of prostate: Status: Acute (5) Memory impairment: Status: Acute (6) HTN (hypertension): Status: Chronic (7) Language difficulty: Status: Acute (8) On deep vein thrombosis (DVT) prophylaxis: Status: Acute Discharge Plan Disposition Patient Disposition: Home W/Home Health Services Condition: Improving Discharge Details Reason For Visit: Right Closed Greater Trochanteric Fracture Admit Date/Time: 03/31/25 13:40 Admit Provider: Evan Akers Attending Provider: Evan Akers Primary Care Provider: Juwan Mark Home Meds and New Rx's Prescriptions: New tramadol 50 mg Tablet 50 mg PO Q6H PRN PRNQty: 30 0RF Continued albuterol sulfate 90 mcg/actuation HFA aerosol inhaler 2 puff inhalation Q6H PRN (Reason: shortness of breath or wheezing) Qty: 8.5 0RF triamcinolone acetonide 0.1 % cream 1 applic TP BID 10 Days Qty: 80 2RF cholecalciferol (vitamin D3) [Vitamin D3] 25 mcg (1,000 unit) capsule 2,000 unit PO DAILY latanoprost 0.005 % drops 1 drp ophthalmic (eye) QPM Qty: 7.5 3RF Rx Instructions: Both eyes potassium chloride 20 mEq tablet,ER particles/crystals 20 meq PO DAILY Qty: 90 3RF atorvastatin 40 mg tablet See Rx Instructions .ROUTE .COMPLEX Qty: 90 4RF Dose Instruction: TAKE ONE TABLET BY MOUTH AT BEDTIME Rx Instructions: TAKE ONE TABLET BY MOUTH AT BEDTIME benazepril-hydrochlorothiazide 20-25 mg tablet 1 tab PO DAILY Qty: 90 3RF Eliquis 5 mg tablet 5 mg PO BID 90 Days Qty: 180 3RF vitamin E (dl, acetate) 400 UNIT capsule 1 cap PO DAILY Discharge Instructions Instructions: Hip fracture Additional Instructions: 6 weeks of 4-point gait, walker at all times with the knee slightly wider than hips. No adduction of the hip across the midline and no active abduction of the hip. Uses hands to assist with all weightbearing as well as rising from a chair or toilet. Acetaminophen for pain. Tramadol for severe pain. Home health will call you and make arrangements to see you in your home for PT. Follow up with orthopedics at the clinic in 6 weeks Stand Alone Forms: Portal Information, Nursing Discharge Form Referrals: Juwan Mark NP [Primary Care Provider, Medicine] Referral Note: 1-2 weeks post hospitalization for fx hip James Rodriguez MD [ [facility] STAFF PHYSICIAN, Orthopaedic Surgical] Referral Note: 6 week follow up s/p hospitalization for fx hip Activity:: Activity as Tolerated Equipment/Supplies:: Walker Diet:: As Tolerated Discharge Orders Discharge Orders: Discharge Order (Routine); Ordered 04/03/25 Ordered By: Pushpa Iniguez DS: Summary Quality:SDOH Health Related Social Needs: Health related social needs lonely/isolated education DS: Data Vitals/I&O Vitals and I&O: Vital Signs Temperature 36.5 C 04/03/25 07:25 Temperature Source Temporal Artery Scan 04/03/25 07:25 Pulse 61 04/03/25 07:25 Respiratory Rate 16 04/03/25 07:25 Blood Pressure 164/91 H 04/03/25 07:25 Blood Pressure Mean 115 04/03/25 07:25 Pulse Oximetry 95 04/03/25 07:25 Oxygen Delivery Method Room Air 04/03/25 07:25 Oxygen Flow Rate 0 04/03/25 07:25 Pain Level 5 04/03/25 12:33 Intake & Output 04/02/25 04/03/25 04/03/25 23:59 11:59 23:59 Intake Total 600 / 850 400 / 400 Balance 600 / 350 400 / 400 Intake: IV 100 / 100 Oral 500 / 750 400 / 400 Other: Urine Color Yellow Yellow Urine Appearance Clear Clear Urine Odor Normal Comment Pt voided an immeasurable amount ind. into the toilet. Data Completed and Pending Pending Labs at Discharge: 03/31/25 03/31/25 03/31/25 11:12 11:23 12:53 WBC 8.17 RBC 3.81 L Hgb 10.7 L Hct 32.4 L MCV 85 MCH 28.1 MCHC 33.0 RDW 15.2 H Plt Count 159 MPV 8.7 Immature Gran % 0.4 Neutrophils % 87.9 Lymphocytes % 4.5 Monocytes % 6.9 Eosinophils % 0.2 Basophils % 0.1 Nucleated RBC % 0.0 Absolute Neutrophils 7.18 H Absolute Lymphocytes 0.37 L Absolute Monocytes 0.56 Absolute Eosinophils 0.02 Absolute Basophils 0.01 Sodium 136 Potassium 2.9 L* Chloride 100 Carbon Dioxide 25.6 Anion Gap 10.4 BUN 10 Creatinine 0.7 Est GFR (CKD-EPI 2020) 88.08 Glucose 148 H Calcium 8.6 Magnesium Urine Color Cancelled Urine Clarity Cancelled Urine pH Cancelled Ur Specific [place] Cancelled Urine Protein Cancelled Urine Ketones Cancelled Urine Blood Cancelled Urine Nitrite Cancelled Urine Bilirubin Cancelled Urine Urobilinogen Cancelled Ur Leukocyte Esterase Cancelled Urine Glucose Cancelled ABO/Rh Cancelled Antibody Screen Cancelled 04/01/25 04/02/25 04/03/25 06:35 06:09 08:45 WBC 6.53 5.98 5.97 RBC 3.60 L 3.94 L 3.89 L Hgb 10.0 L 10.9 L 10.9 L Hct 30.7 L 33.8 L 33.1 L MCV 85 86 85 MCH 27.8 27.7 28.0 MCHC 32.6 32.2 32.9 RDW 15.4 H 15.4 H 15.5 H Plt Count 153 161 162 MPV 8.7 9.0 8.8 Immature Gran % 0.5 0.3 0.3 Neutrophils % 69.9 66.9 71.9 Lymphocytes % 14.1 17.1 12.6 Monocytes % 11.2 10.0 9.9 Eosinophils % 4.0 5.4 5.0 Basophils % 0.3 0.3 0.3 Nucleated RBC % 0.0 0.0 0.0 Absolute Neutrophils 4.57 4.00 4.29 Absolute Lymphocytes 0.92 L 1.02 L 0.75 L Absolute Monocytes 0.73 0.60 0.59 Absolute Eosinophils 0.26 0.32 0.30 Absolute Basophils 0.02 0.02 0.02 Sodium 140 136 139 Potassium 3.2 L 3.2 L 3.4 L Chloride 105 103 102 Carbon Dioxide 25.0 27.3 26.7 Anion Gap 10 5.7 10.3 BUN 18 17 16 Creatinine 0.9 0.7 L 0.8 Est GFR (CKD-EPI 2020) 82.51 101.03 87.11 Glucose 112 H 99 158 H Calcium 8.9 8.9 9.2 Magnesium 1.6 Urine Color Urine Clarity Urine pH Ur Specific [place] Urine Protein Urine Ketones Urine Blood Urine Nitrite Urine Bilirubin Urine Urobilinogen Ur Leukocyte Esterase Urine Glucose ABO/Rh Antibody Screen PFSH All Active Problems Left lower lobe pulmonary infiltrate (Acute) On deep vein thrombosis (DVT) prophylaxis (Acute) Closed fracture of greater trochanter of right femur (Acute) Acute hypokalemia (Acute) Trochanteric bursitis, left hip (Acute) DEPO MEDROL 02/19/25 Femur fracture (Acute) Arthritis (Acute) Bladder stone (Acute 01/27/16) removed / Central retinal vein occlusion (Acute 03/05/17) [facility] [place] (Avastin OD) Chronic atrial fibrillation (Acute 10/04/15) Hyperplasia of prostate (Acute 10/03/12) Language difficulty (Acute) Not [place] speaker Memory impairment (Acute 05/08/13) 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) Normal B12; Ulnar Eczema (Chronic) Bilateral lower legs HTN (hypertension) (Chronic) Dysuria (Acute) Stenosis of rectum and anus (Acute) Gross hematuria (Acute 01/27/16) Depression (Chronic) Fatigue (Acute) Slow heart rate (Acute) Medical History Closed left hip fracture Chest pain Contracture, left shoulder Left rotator cuff tear arthropathy Atrial fibrillation BPH (benign prostatic hyperplasia) Nasal polyp surgically removed Surgical History Intertrochanteric fracture of left femur (07/09/24) S/P IM nail fixation: 07/10/2024 Hx of cystoscopy daughter reports prostate was cleared out Hx of appendectomy S/P excision of lipoma left thigh Family History Mother , 73 Stroke Father , 40 No problems noted. Sister , 73 No problems noted. Sister , 80 Stroke Diabetes Daughter No problems noted. Daughter No problems noted. Social History Smoking/Tobacco Use Status: Former Tobacco Use tobacco type: cigarettes Quit Date: 05/21/15 Second Hand Exposure: Yes Smoking risk assessment performed?: Yes Alcohol Intake: current Alcohol Intake frequency: holidays/special occasions only Alcohol type: beer, wine and hard liquor Drug use: Never Substance use type: does not use Details: alcohol: t-1, 1/2 glass of wine Caregiver/Support person: No Housing: house Communication Needs: Language Barriers Do you need help understanding health information?: Always Pets and animals: No Sexually active: No Do you think of yourself as: straight/heterosexual What is your relationship status?: How often do you talk on the phone with friends or family?: three or more times per week How often do you get together with friends or relatives?: once per week Do you belong to any clubs or organized social groups?: no Panel score (0-1 are the most socially isolated patients): 1 What type of physical activity do you participate in: walking Duration: 15-30 minutes/day Frequency: 3-4 times per week Janae/Sikh: [employer] Seatbelt use: always Drive intox or ride w/intox commercial driver's license driver: No Additional Social history: Unable to assess carinatcarlene, daughter in room
--- NOTE | 2025-04-03 17:44 | W.PM.PROGNOT ---
Date of Service Date of service: 04/03/25 Time of Service: 17:44 Assessment and Plan Assessment and plan (1) Closed fracture of greater trochanter of right femur: Status: Acute Assessment and plan: As per imaging in the ED s/p fall Non-operable as per orthopedic consult Pain management with acetaminophen scheduled; tramadol prn pain not relieved by acetaminophen. Orthopedic consult: Seen by Dr Collins -Please read notes - Best treatment recommendation: 6 weeks of 4-point gait, walker at all times with the knee slightly wider than hips. - No adduction of the hip across the midline and no active abduction of the hip. - Continue to hands to assist with all weightbearing as well as rising from a chair or toilet. - No serial x-rays - follow-up in orthopedics in 6 weeks. Ongoing PT: Has stairs at home Family plan to take the patient home in 24 - 48 hours - PT at d/c (2) Acute hypokalemia: Status: Acute Assessment and plan: Supplemented BMP (3) Chronic atrial fibrillation: Status: Acute Assessment and plan: Rate control w/o AV blocking agents on home medicine regimen list - fully anticoagulated on apixaban Continue apixaban (4) Hyperplasia of prostate: Status: Acute Assessment and plan: Ongoing home regimen with [facility] q. weekly on Sunday- voids w/o difficulty (5) Memory impairment: Status: Acute Assessment and plan: As per history, no exacerbation - remains at baseline (6) HTN (hypertension): Status: Chronic Assessment and plan: Ongoing home medicine regimen (7) Language difficulty: Status: Acute Assessment and plan: Sole does understand [place], but not [place] language. 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 Akers (9) Constipated: Status: Acute Assessment and plan: States no BM since hospitalized Oral stool softeners and dulcolax [place] given. Daughter refuses to take him home until he has a BM. Educated regarding stool softeners and diet at home to help avoid constipation Subjective Subjective Patient reports: no new complaints, pain is less, tolerating liquids well, tolerating a regular diet, voiding w/o difficulty, flatus, no bowel movement (Daughter does not feel safe taking him home since he hasn't had a BM in three days) and afebrile; denies diarrhea, nausea, vomiting or shortness of breath Interval history since last seen: Patient wake, alert, sitting in the chair. Told his daughter he has not had a BM since admission. Exam Narrative Exam Narrative: patient sitting up in chair, awake, alert, conversant, with ongoing chronic memory issues. Const General: comfortable and no acute distress Resp Auscultation: clear to auscultation bilaterally Cardio Rate: regular rate Rhythm: abnormal rhythm GI Inspection: normal to inspection Palpation: soft Auscultation: normal bowel sounds Psych Mental Status: other Speech and Movement: other Mood: other Affect: other Objective Last Vital Signs Temp 36.5 C 04/03/25 07:25 Pulse 61 04/03/25 07:25 Resp 16 04/03/25 07:25 BP 164/91 H 04/03/25 07:25 Pulse Ox 95 04/03/25 07:25 Laboratory Results - last 24 hr 04/03/25 08:45 WBC 5.97 RBC 3.89 L Hgb 10.9 L Hct 33.1 L MCV 85 MCH 28.0 MCHC 32.9 RDW 15.5 H Plt Count 162 MPV 8.8 Immature Gran % 0.3 Neutrophils % 71.9 Lymphocytes % 12.6 Monocytes % 9.9 Eosinophils % 5.0 Basophils % 0.3 Nucleated RBC % 0.0 Absolute Neutrophils 4.29 Absolute Lymphocytes 0.75 L Absolute Monocytes 0.59 Absolute Eosinophils 0.30 Absolute Basophils 0.02 Sodium 139 Potassium 3.4 L Chloride 102 Carbon Dioxide 26.7 Anion Gap 10.3 BUN 16 Creatinine 0.8 Est GFR (CKD-EPI 2020) 87.11 Glucose 158 H Calcium 9.2 Time Spent with Patient Time Spent with Patient: 25-34 minutes Time was spent: preparing to see the patient(eg.review tests), ordering medications,tests, procedures, referring, communicating with other health health care marketing manager, indepentently interpreting results, counseling the patient and care coordination
[2025-04-03] MEDS: Bisacodyl 10 MG SUPP PR (18:08)
[2025-04-03 20:43] VITALS: BP 166/87; PULSE 74; RESP 16; TEMP 36.6; O2SAT 97
[2025-04-03] MEDS: Latanoprost 0.005% 2.5 ML BTL OP (20:47)
[2025-04-03] MEDS: Atorvastatin 40 MG TAB PO (20:48)
[2025-04-03] MEDS: traMADol 50 MG TAB PO (23:55)
[2025-04-04] MEDS: Pantoprazole 40 MG TABCR PO (06:13)
[2025-04-04 06:53] LABS: Abs Immature Grans 0.02 10^3/uL (0.0-0.06); HCT 30.8 % (40.0-50.0); HGB 10.3 g/dL (13.5-17.5); Immature Grans % 0.3 %; MCH 28.8 pg (27.0-33.0); MCHC 33.4 % (32.0-36.0); MCV 86 fL (80-95); MPV 9.0 fL (8.0-11.0); Platelet Count 165 10^3/uL (130-400); RBC 3.58 10^6/uL (4.36-5.78); RDW 15.5 % (11.8-14.1); RDW-SD 48.7 fL; WBC 5.85 10^3/uL (4.4-10.8)
[2025-04-04 07:11] LABS: Magnesium 1.6 mg/dL (1.6-2.6)
[2025-04-04 07:13] LABS: Anion Gap 8.1 mmol/L (3-11); BUN 17 mg/dL (9-23); CO2 28.9 mmol/L (20.0-31.0); Calcium 9.0 mg/dL (8.3-10.6); Chloride 103 mmol/L (98-107); Glucose 103 mg/dL (74-106); Potassium 3.4 mmol/L (3.5-5.1); Sodium 140 mmol/L (136-145)
[2025-04-04 07:37] VITALS: BP 166/93; PULSE 71; RESP 16; TEMP 36.5; O2SAT 96
[2025-04-04] MEDS: Benazepril 10 MG TAB 20 MG PO (08:37)
[2025-04-04] MEDS: Cholecalciferol (Vitamin D3) 1,000 UNIT TAB 2000 UNITS PO (08:37)
[2025-04-04] MEDS: Potassium Chloride 20 MEQ TABCR PO ×2 (08:40)
[2025-04-04] MEDS: traMADol 50 MG TAB PO ×2 (08:40→13:34)
[2025-04-04] MEDS: Docusate Sodium 100 MG CAP PO (08:40)
[2025-04-04] MEDS: Apixaban 5 MG TAB PO (08:40)
[2025-04-04] MEDS: Celecoxib 100 MG CAP PO (08:40)
[2025-04-04] MEDS: Polyethylene Glycol 3350 17 GM PACKET PO (08:41)
[2025-04-04] MEDS: Normal Saline Flush 10 ML SYR IVP (08:41)
[2025-04-04] MEDS: hydroCHLOROthiazide 25 MG TAB PO (08:41)
--- NOTE | 2025-04-04 09:57 | DSE_ITS ---
Date of service: 04/04/25 Time of Service: 09:57 DS: Diagnosis Discharge Diagnosis (1) Closed fracture of greater trochanter of right femur: Status: Acute (2) Acute hypokalemia: Status: Acute (3) Chronic atrial fibrillation: Status: Acute (4) Hyperplasia of prostate: Status: Acute (5) Memory impairment: Status: Acute (6) HTN (hypertension): Status: Chronic (7) Language difficulty: Status: Acute (8) On deep vein thrombosis (DVT) prophylaxis: Status: Acute (9) Constipated: Status: Acute Discharge Plan Disposition Patient Disposition: Home W/Home Health Services Condition: Improving Discharge Details Reason For Visit: Right Closed Greater Trochanteric Fracture Admit Date/Time: 03/31/25 13:40 Admit Provider: Evan Akers Attending Provider: Evan Akers Primary Care Provider: Juwan Mark Hospital Course Hospital Course: 89-year-old male with past medical history of atrial fibrillation (on Eliquis), hypertension, BPH, umbilical hernia, presented to the ED after a fall at home. He reported right lower extremity pain. * Imaging: CT showed a closed right greater trochanteric fracture with minimal displacement; non-operable per orthopedic consult. X-ray showed chronic left lower lobe infiltrate and stable left hip ORIF hardware. * Labs: Hypokalemia (K 2.9), stable anemia (Hgb 10.7). * Vitals: O2 saturation 88% on room air, improved to >92% on 2L O2 * Treatment in ED: Morphine, fentanyl (EMS), IV fluids, potassium replacement. The patient denied dizziness, syncope, chest pain, nausea, vomiting, diarrhea, or dysuria. Labs * Hgb 10.7 g/dL, Hct 32.4% * K 2.9 mEq/L (low) – supplemented in hospital and increased to 3.4 and repleted on day of discharge. Continue home potassium. * Glucose 148 mg/dL * WBC 8.17 ×10³/µL Assessment * Closed fracture, right greater trochanter – Non-operative. Weightbearing with 4-point gait for 6 weeks, walker use recommended. Avoid hip adduction/active abduction. Orthopedic follow-up in 6 weeks. PT ordered. * Acute hypokalemia – Supplemented; BMP monitoring. * Chronic atrial fibrillation – Continue Eliquis. HR controlled. * BPH – Continue home regimen, CIC weekly. * Memory impairment – At baseline. * Hypertension – Continue home medications. Dr. Rodriguez reviewed and confirmed non-operative management. Patient should use hands for all weightbearing activities and when rising from chair/toilet. Serial X-rays not indicated unless clinical concern arises. Home health RN, PT, OT, STRINGED INSTRUMENT TUNER ordered Follow up with PCP in 1 week. Follow up with orthopedics in 6 weeks. Tramadol for pain. Home Meds and New Rx's Prescriptions: New tramadol 50 mg Tablet 50 mg PO Q6H PRN PRNQty: 30 0RF Continued albuterol sulfate 90 mcg/actuation HFA aerosol inhaler 2 puff inhalation Q6H PRN (Reason: shortness of breath or wheezing) Qty: 8.5 0RF triamcinolone acetonide 0.1 % cream 1 applic TP BID 10 Days Qty: 80 2RF cholecalciferol (vitamin D3) [Vitamin D3] 25 mcg (1,000 unit) capsule 2,000 unit PO DAILY latanoprost 0.005 % drops 1 drp ophthalmic (eye) QPM Qty: 7.5 3RF Rx Instructions: Both eyes potassium chloride 20 mEq tablet,ER particles/crystals 20 meq PO DAILY Qty: 90 3RF atorvastatin 40 mg tablet See Rx Instructions .ROUTE .COMPLEX Qty: 90 4RF Dose Instruction: TAKE ONE TABLET BY MOUTH AT BEDTIME Rx Instructions: TAKE ONE TABLET BY MOUTH AT BEDTIME benazepril-hydrochlorothiazide 20-25 mg tablet 1 tab PO DAILY Qty: 90 3RF Eliquis 5 mg tablet 5 mg PO BID 90 Days Qty: 180 3RF vitamin E (dl, acetate) 400 UNIT capsule 1 cap PO DAILY Discharge Instructions Instructions: Hip fracture Additional Instructions: 6 weeks of 4-point gait, walker at all times with the knee slightly wider than hips. No adduction of the hip across the midline and no active abduction of the hip. Uses hands to assist with all weightbearing as well as rising from a chair or toilet. Acetaminophen for pain. Tramadol for severe pain. Home health will call you and make arrangements to see you in your home for PT. Follow up with orthopedics at the clinic in 6 weeks Stand Alone Forms: Portal Information Referrals: Juwan Mark COPYRIGHT MANAGER [Primary Care Provider, Medicine] Referral Note: 1-2 weeks post hospitalization for fx hip Your pcp will call to schedule a follow up, please reach out if you do not hear from them James Rodriguez MD [ [facility] STAFF PHYSICIAN, Orthopaedic Surgical] Referral Note: 6 week follow up s/p hospitalization for fx hip Activity:: Activity as Tolerated Equipment/Supplies:: Walker Diet:: As Tolerated Discharge Orders Discharge Orders: Discharge Order (Routine); Ordered 04/04/25 Ordered By: Pushpa Iniguez Discharge Data Discharge Date/Time-TO BE ENTERED AT DEPARTURE: 04/04/25 14:06 DS: Summary Time Spent with Patient providing and/or coordinating discharge services: Greater than 30 minutes Status at Discharge Functional status at discharge: uses cane/walker Overall status at discharge: patient is progressing back to baseline Mental Status: other Speech and Movement: other Mood: other Affect: other Quality:SDOH Health Related Social Needs: Health related social needs lonely/isolated education Exam Narrative Exam Narrative: patient sitting up in chair, awake, alert, conversant, with ongoing chronic memory issues, states he is ready to go home. Const General: comfortable and no acute distress Resp Auscultation: clear to auscultation bilaterally Cardio Rate: regular rate Rhythm: abnormal rhythm GI Inspection: normal to inspection Palpation: soft Auscultation: normal bowel sounds Psych Mental Status: other Speech and Movement: other Mood: other Affect: other DS: Data Vitals/I&O Vitals and I&O: Vital Signs Temperature 36.5 C 04/04/25 07:37 Temperature Source Temporal Artery Scan 04/04/25 07:37 Pulse 71 04/04/25 07:37 Respiratory Rate 16 04/04/25 07:37 Blood Pressure 166/93 H 04/04/25 07:37 Blood Pressure Mean 117 04/04/25 07:37 Pulse Oximetry 96 04/04/25 07:37 Oxygen Delivery Method Room Air 04/04/25 07:37 Oxygen Flow Rate 0 04/04/25 07:37 Pain Level 0 04/04/25 07:37 Intake & Output 04/03/25 04/03/25 04/04/25 11:59 23:59 11:59 Intake Total 400 / 1360 960 / 1360 Balance 400 / 1360 960 / 1360 Intake: Oral 400 / 1360 960 / 1360 Other: Urine Color Yellow Pale Yellow Yellow Straw Urine Appearance Clear Clear Clear Urine Odor None Normal Comment pt voided in the toliet unmeasureable amount Pt voids and immeasurable amount ind. into the toilet. Stool Size Moderate Stool Characteristics Soft Data Completed and Pending Pending Labs at Discharge: 03/31/25 03/31/25 03/31/25 11:12 11:23 12:53 WBC 8.17 RBC 3.81 L Hgb 10.7 L Hct 32.4 L MCV 85 MCH 28.1 MCHC 33.0 RDW 15.2 H Plt Count 159 MPV 8.7 Immature Gran % 0.4 Neutrophils % 87.9 Lymphocytes % 4.5 Monocytes % 6.9 Eosinophils % 0.2 Basophils % 0.1 Nucleated RBC % 0.0 Absolute Neutrophils 7.18 H Absolute Lymphocytes 0.37 L Absolute Monocytes 0.56 Absolute Eosinophils 0.02 Absolute Basophils 0.01 Sodium 136 Potassium 2.9 L* Chloride 100 Carbon Dioxide 25.6 Anion Gap 10.4 BUN 10 Creatinine 0.7 Est GFR (CKD-EPI 2020) 88.08 Glucose 148 H Calcium 8.6 Magnesium Urine Color Cancelled Urine Clarity Cancelled Urine pH Cancelled Ur Specific [place] Cancelled Urine Protein Cancelled Urine Ketones Cancelled Urine Blood Cancelled Urine Nitrite Cancelled Urine Bilirubin Cancelled Urine Urobilinogen Cancelled Ur Leukocyte Esterase Cancelled Urine Glucose Cancelled ABO/Rh Cancelled Antibody Screen Cancelled 04/01/25 04/02/25 04/03/25 06:35 06:09 08:45 WBC 6.53 5.98 5.97 RBC 3.60 L 3.94 L 3.89 L Hgb 10.0 L 10.9 L 10.9 L Hct 30.7 L 33.8 L 33.1 L MCV 85 86 85 MCH 27.8 27.7 28.0 MCHC 32.6 32.2 32.9 RDW 15.4 H 15.4 H 15.5 H Plt Count 153 161 162 MPV 8.7 9.0 8.8 Immature Gran % 0.5 0.3 0.3 Neutrophils % 69.9 66.9 71.9 Lymphocytes % 14.1 17.1 12.6 Monocytes % 11.2 10.0 9.9 Eosinophils % 4.0 5.4 5.0 Basophils % 0.3 0.3 0.3 Nucleated RBC % 0.0 0.0 0.0 Absolute Neutrophils 4.57 4.00 4.29 Absolute Lymphocytes 0.92 L 1.02 L 0.75 L Absolute Monocytes 0.73 0.60 0.59 Absolute Eosinophils 0.26 0.32 0.30 Absolute Basophils 0.02 0.02 0.02 Sodium 140 136 139 Potassium 3.2 L 3.2 L 3.4 L Chloride 105 103 102 Carbon Dioxide 25.0 27.3 26.7 Anion Gap 10 5.7 10.3 BUN 18 17 16 Creatinine 0.9 0.7 L 0.8 Est GFR (CKD-EPI 2020) 82.51 101.03 87.11 Glucose 112 H 99 158 H Calcium 8.9 8.9 9.2 Magnesium 1.6 Urine Color Urine Clarity Urine pH Ur Specific [place] Urine Protein Urine Ketones Urine Blood Urine Nitrite Urine Bilirubin Urine Urobilinogen Ur Leukocyte Esterase Urine Glucose ABO/Rh Antibody Screen 04/04/25 06:10 WBC 5.85 RBC 3.58 L Hgb 10.3 L Hct 30.8 L MCV 86 MCH 28.8 MCHC 33.4 RDW 15.5 H Plt Count 165 MPV 9.0 Immature Gran % 0.3 Neutrophils % 68.0 Lymphocytes % 14.5 Monocytes % 9.9 Eosinophils % 6.8 Basophils % 0.5 Nucleated RBC % 0.0 Absolute Neutrophils 3.97 Absolute Lymphocytes 0.85 L Absolute Monocytes 0.58 Absolute Eosinophils 0.40 Absolute Basophils 0.03 Sodium 140 Potassium 3.4 L Chloride 103 Carbon Dioxide 28.9 Anion Gap 8.1 BUN 17 Creatinine 0.8 Est GFR (CKD-EPI 2020) 88.34 Glucose 103 Calcium 9.0 Magnesium 1.6 Urine Color Urine Clarity Urine pH Ur Specific [place] Urine Protein Urine Ketones Urine Blood Urine Nitrite Urine Bilirubin Urine Urobilinogen Ur Leukocyte Esterase Urine Glucose ABO/Rh Antibody Screen PFSH All Active Problems (Updated 04/03/25 @ 17:50 by Pushpa Iniguez, AYLA) Constipated (Acute) Left lower lobe pulmonary infiltrate (Acute) On deep vein thrombosis (DVT) prophylaxis (Acute) Closed fracture of greater trochanter of right femur (Acute) Acute hypokalemia (Acute) Trochanteric bursitis, left hip (Acute) DEPO MEDROL 02/19/25 Femur fracture (Acute) Arthritis (Acute) Bladder stone (Acute 01/27/16) removed / Central retinal vein occlusion (Acute 03/05/17) [facility] [place] (Avastin OD) Chronic atrial fibrillation (Acute 10/04/15) Hyperplasia of prostate (Acute 10/03/12) Language difficulty (Acute) Not [place] speaker Memory impairment (Acute 05/08/13) 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) Normal B12; Ulnar Eczema (Chronic) Bilateral lower legs HTN (hypertension) (Chronic) Dysuria (Acute) Stenosis of rectum and anus (Acute) Gross hematuria (Acute 01/27/16) Depression (Chronic) Fatigue (Acute) Slow heart rate (Acute) Medical History Closed left hip fracture Chest pain Contracture, left shoulder Left rotator cuff tear arthropathy Atrial fibrillation BPH (benign prostatic hyperplasia) Nasal polyp surgically removed Surgical History Intertrochanteric fracture of left femur (07/09/24) S/P IM nail fixation: 07/10/2024 Hx of cystoscopy daughter reports prostate was cleared out Hx of appendectomy S/P excision of lipoma left thigh Family History Mother , 73 Stroke Father , 40 No problems noted. Sister , 73 No problems noted. Sister , 80 Stroke Diabetes Daughter No problems noted. Daughter No problems noted. Social History Smoking/Tobacco Use Status: Former Tobacco Use tobacco type: cigarettes Quit Date: 05/21/15 Second Hand Exposure: Yes Smoking risk assessment performed?: Yes Alcohol Intake: current Alcohol Intake frequency: holidays/special occasions only Alcohol type: beer, wine and hard liquor Drug use: Never Substance use type: does not use Details: alcohol: t-1, 1/2 glass of wine Caregiver/Support person: No Housing: house Communication Needs: Language Barriers Do you need help understanding health information?: Always Pets and animals: No Sexually active: No Do you think of yourself as: straight/heterosexual What is your relationship status?: How often do you talk on the phone with friends or family?: three or more times per week How often do you get together with friends or relatives?: once per week Do you belong to any clubs or organized social groups?: no Panel score (0-1 are the most socially isolated patients): 1 What type of physical activity do you participate in: walking Duration: 15-30 minutes/day Frequency: 3-4 times per week Janae/Adventism: Religious Seatbelt use: always Drive intox or ride w/intox transit mixer driver: No Additional Social history: Unable to assess polly amado in room Time Spent with Patient Time Spent with Patient: 70-84 minutes4 Time was spent: preparing to see the patient(eg.review tests), ordering medications,tests, procedures, referring, communicating with other health hearing care professional, indepentently interpreting results, counseling the patient and care coordination
[2025-04-04] MEDS: Acetaminophen 500 MG TAB 1000 MG PO (12:01)
--- NOTE | 2025-04-04 13:24 | PDOC.CMDIS ---
Date of service: 04/04/25 Time of Service: 13:24 LACE Index Scoring Tool Questions: Length of Stay (in days): 4 - 6 Was the patient admitted via the E.D.?: Yes E.D. Visits: 0 Answers: Total Score: 7 Risk of Readmission: Low Risk Care Management Discharge Plan Reason for Hospitalization: Right Closed Greater Trochanteric Fracture Discharge Plan: Merary returned home today, in the care of his daughter, Zahra. Zahra drove him home via private vehicle with the help of staff to get him into the car. CM coordinated at lift assist via [employer], scheduled for 20 min past his departure time. He will have new orders for HH RN, PT, OT; CM communicated with intake at [facility]. He will follow up with his PCP and discharge plan of care. Patient/Family Education Needs: Review discharge instructions and limitations, discussion of self care needs including ask me three. Services Needed at Discharge: Home Health Care Services (new HH RN, PT, OT) and Transportation ([employer] [facility]ist, [employer]) SDOH Health Related Social Needs: Health related social needs lonely/isolated education
--- NOTE | 2025-04-04 15:08 | PDOC.HHF2F_ITS ---
Date of service: 04/04/25 Time of Service: 15:08 Home Health Referral Home Health Orders Clinical synopsis of why skilled professionals are needed: 89-year-old male with past medical history of atrial fibrillation (on Eliquis), hypertension, BPH, umbilical hernia, presented to the ED after a fall at home. He reported right lower extremity pain. * Imaging: CT showed a closed right greater trochanteric fracture with minimal displacement; non-operable per orthopedic consult. X-ray showed chronic left lower lobe infiltrate and stable left hip ORIF hardware. * Labs: Hypokalemia (K 2.9), stable anemia (Hgb 10.7). * Vitals: O2 saturation 88% on room air, improved to >92% on 2L O2 * Treatment in ED: Morphine, fentanyl (EMS), IV fluids, potassium replacement. The patient denied dizziness, syncope, chest pain, nausea, vomiting, diarrhea, or dysuria. Labs * Hgb 10.7 g/dL, Hct 32.4% * K 2.9 mEq/L (low) – supplemented in hospital and increased to 3.4 and repleted on day of discharge. Continue home potassium. * Glucose 148 mg/dL * WBC 8.17 ×10³/µL Assessment * Closed fracture, right greater trochanter – Non-operative. Weightbearing with 4-point gait for 6 weeks, walker use recommended. Avoid hip adduction/active abduction. Orthopedic follow-up in 6 weeks. PT ordered. * Acute hypokalemia – Supplemented; BMP monitoring. * Chronic atrial fibrillation – Continue Eliquis. HR controlled. * BPH – Continue home regimen, CIC weekly. * Memory impairment – At baseline. * Hypertension – Continue home medications. Dr. Rodriguez reviewed and confirmed non-operative management. Patient should use hands for all weightbearing activities and when rising from chair/toilet. Serial X-rays not indicated unless clinical concern arises. Medical diagnosis necessitation home health referral: Fractured right greater trochanter Registered Nurse: Check all that apply Assess for exacerbation of medical condition, instruct patient/caregivers on signs and symptoms to report for early detection: Ordered Other: Hypertension - monitor blood pressure and report to PCP Physical Therapist: Check all that apply Increase strength & endurance for safe mobility at home: Ordered To design/establish home maintenance program: Ordered Fall reduction therapy program for patient with history of frequent falls: Ordered Home safety evaluation and teaching/gait training including stair management (if applicable): Ordered Occupational Therapist: Evaluate and treat for patient unable to perform ADL/IADL/self-care: Ordered Upper extremity strengthening, range and motion: Ordered Gastroenterology Technician: Assist with community resources: Ordered Assist with jail care planning: Ordered Home Bound Status Requires the aid of supportive device (check all that apply): Walker Patient has a condition such that leaving home is medically contraindicated (Describe): Fractured hip Describe why leaving home would require a considerable and taxing effort: Side effects from pain medication (sedation/drowsiness), Requires frequent rest periods and Confusion Encounter Date and Reason: I certify that a FTF encounter for this patient was performed on April 04, 2025 and that such encounter was related to the primary reason the patient requires home health services. The encounter was conducted in the following manner: * By me as the certifying physician, LUDLOW MACHINE OPERATOR, PA or * By an inpatient physician, LUDLOW MACHINE OPERATOR or PA during an inpatient stay who communicated findings to me, Certification And Authentication I certify that I composed the above information based on my clinical judgment relating to this patient's medical condition and, if applicable, clinical findings communicated to me by the NPP or inpatient physician who performed the FTF encounter. Name of Provider that will be monitoring home health services: Juwan Mark
== END 2025-04-04 14:06 | disposition home health service (06) ==
LOC: ER 13:05 → MS 14:29
PROVIDERS: Nurse Practitioner Acute Care; Admitting Provider Family Medicine; Emergency Provider Emergency Medicine; PCP Nurse Practitioner Family; Responsible Provider Nurse Practitioner Family; Visit Provider Family Medicine
DX: S72.111A Displaced fracture of greater trochanter of right femur, initial encounter for closed fracture (principal); I48.20 Chronic atrial fibrillation, unspecified; E87.6 Hypokalemia; R41.3 Other amnesia; N40.0 Benign prostatic hyperplasia without lower urinary tract symptoms; I10 Essential (primary) hypertension; K59.00 Constipation, unspecified; Z79.899 Other long term (current) drug therapy; D64.9 Anemia, unspecified; W19.XXXA Unspecified fall, initial encounter; S30.810A Abrasion of lower back and pelvis, initial encounter; R91.8 Other nonspecific abnormal finding of lung field; M70.62 Trochanteric bursitis, left hip; G62.9 Polyneuropathy, unspecified; L30.9 Dermatitis, unspecified; F32.A Depression, unspecified; Z79.01 Long term (current) use of anticoagulants; R45.89 Other symptoms and signs involving emotional state
CPT/HCPCS: 00123; 36415; 73552; 80048; 86850; 86900; 86901; 93005; 96361; 96374; 97110; 97162; 97530; 99222; 99231; 99285; 70450; 71045; 72170; 72192; 81003; 83735; 85025; 93010; 99223; 99233; 99239; G0378; J0131; J1171; J1885; J2270; J2470; J3480

== ENCOUNTER → 2025-05-15 10:18 | Outpatient (BNVA) | payer MEDICARE, MEDICAID, SELFPAY | PROVIDERS: PCP Nurse Practitioner Family; Referring Provider Nurse Practitioner Family; Visit Provider Internal Medicine Cardiovascular Disease | DX: I48.20 Chronic atrial fibrillation, unspecified (principal); R29.6 Repeated falls; R60.0 Localized edema | CPT/HCPCS: 99213 ==